=== PATIENT | male | born 1955 | race Caucasian/White ===

== ENCOUNTER → 2017-09-09 | Outpatient (CLI) | END | disposition home or self-care (01) ==

== ENCOUNTER 2017-09-23 01:55 | Emergency (ER) | payer MEDICARE, SELFPAY ==
[~2017-09-23] VITALS: Ht 172.7 cm; Wt 90.7 kg
[~2017-09-23 01:55] MED LIST: ACET325 PO; ALBIPROI; ALBU.083IS IH; ALBU90I; ALBU90OI; ALBU90OI INH; ALBU90OI6 INH; ALBU90OI61 INH; ALBUIS; ALEN70 PO; ALPR.5 PO; AMLO10 PO; ASPI81CH PO; ASPI81EC PO; ATOR10; ATOR40TA PO; AZIT250 PO; AZIT500 PO; Amlodipine Besy10 MG PO; Belladonna-Opi1 EAC1 PR; Bisoprolol Fuma10 MG PO; Brovana15 MCG/2 M; Budesonide0.5 MG/2 M IH; Bystolic20 MG PO; CEPH500 PO; CIPR500 PO; CITA20 PO; CLOP75 PO; CYCL10 PO; Coughtab200 MG PO; DOCU100 PO; DOXA2 PO; DOXA4 PO; Doxazosin Mesyla2 MG PO; EPIN.3I IM; FLUSAL1005; FLUSAL5005; FLUSAL5005 IH; FLUT1DIS5 INH; GUAI600T33 PO; HYDACE5 PO; HYDGUAL120 PO; HYDR1TAB94 PO; IBUHYD PO; IPRAIS NEB; ISODIN10 PO; ISOMON20 PO; Ipratr-Albuterol3 ML IH; Ipratr-Albuterol3 ML NEB; Isosorbide Mono30 MG PO; Isosorbide Mono60 MG PO; LEVFLO500 PO; LORA10ER; LOVA20; METO50ER; MOMENI; MORP30 PO; NEBI10 PO; NEBI5 PO; NITR.4SL SL; NITR.6SL SL; NITR100CA PO; Norco 5-325 Ta1 EACH PO; OMEP20ER PO; OXYACE5T PO; PANT40 PO; PRED10 PO; PRED20 PO; PRED5; PRED5 PO; PROM25 PO; Pantoprazole So40 MG PO; Pepcid20 MG PO; Prednisone20 MG PO; RANI150; RANO500T PO; RXCEPH500 PO; SENN187 PO; SERT50; SIMV10 PO; SIMV5 PO; SUCR1 PO; Simvastatin40 MG PO; TAMS.4ER PO; TIOT18; TIOT18 IH; TIOT18 INH; Ventolin Soln3 ML INH; Ventolin5 MG/1 ML INH; [UNRECOGNIZED DRUG - CODE]
[2017-09-23 03:07] LABS: BASOPHILS ABSOLUTE AUTO 0.15 K/mm3 (0.00-0.23); BASOPHILS PERCENT AUTO 2 % (0-2); EOSINOPHILS ABSOLUTE AUTO 0.23 K/mm3 (0.00-0.68); EOSINOPHILS PERCENT AUTO 3 % (0-6); Hematocrit 36.7 % (37.0-53.0); Hemoglobin 12.5 g/dL (13.5-17.5); IMMATURE GRAN ABSOLUTE AUTO 0.06 K/mm3 (0.00-0.10); IMMATURE GRAN PERCENT AUTO 1 % (0-1); LYMPHOCYTES ABSOLUTE AUTO 1.62 K/mm3 (0.84-5.20); LYMPHOCYTES PERCENT AUTO 18 % (21-46); MONOCYTES ABSOLUTE AUTO 1.32 K/mm3 (0.16-1.47); MONOCYTES PERCENT AUTO 14 % (4-13); Mean Corpuscular HGB 31.3 pg (26.0-34.0); Mean Corpuscular HGB Conc 34.1 g/dL (31.5-36.5); Mean Corpuscular Volume 92 fL (80-100); Mean Platelet Volume 12.3 fL (9.1-12.4); NEUTROPHILS ABSOLUTE AUTO 5.77 K/mm3 (1.96-9.15); NEUTROPHILS PERCENT AUTO 63 % (41-73); Platelet Count 185 K/mm3 (150-400); RDW Coefficient Variation 12.7 % (11.7-14.2); RDW Standard Deviation 42.7 fL (35.1-46.3); Red Blood Cell Count 3.99 M/mm3 (4.30-5.90); White Blood Cell Count 9.15 K/mm3 (4.00-11.30)
[2017-09-23 03:27] LABS: Alanine Aminotransfer (ALT/SGP 33 U/L (12-78); Albumin, Blood 3.5 g/dL (3.4-5.0); Albumin/Globulin Ratio 1.2 (0.8-1.8); Alk Phos 62 U/L (50-136); Anion Gap 9 mmol/L (6-16); Aspartate Aminotrans (AST/SGOT 27 U/L (12-37); Bilirubin, Total 0.4 mg/dL (0.1-1.0); Blood Urea Nitrogen 9 mg/dL (8-24); CO2, Blood 24 mmol/L (21-32); CPK Creatine Kinase 265 U/L (39-308); Calcium, Blood 8.5 mg/dL (8.5-10.1); Chloride, Blood 107 mmol/L (98-108); Glomerular Filtration Rate >60 (60-); Glucose, Blood 85 mg/dL (70-99); Potassium, Blood 3.3 mmol/L (3.5-5.5); Sodium, Blood 140 mmol/L (136-145); Total Protein, Blood 6.5 g/dL (6.4-8.2); Troponin I <0.015 ng/mL (0.000-0.040)
[2017-09-23 03:54] LABS: Influenza A Positive (NEGATIVE); Influenza B Negative (NEGATIVE)
== END 2017-09-23 05:14 | disposition home or self-care (01) ==
LOC: ER 01:55
PROVIDERS: Emergency Medicine
DX: J10.1 Influenza due to other identified influenza virus with other respiratory manifestations (principal); Z88.8 Allergy status to other drugs, medicaments and biological substances; Z88.2 Allergy status to sulfonamides; Z79.899 Other long term (current) drug therapy; J44.9 Chronic obstructive pulmonary disease, unspecified; F17.210 Nicotine dependence, cigarettes, uncomplicated
CPT/HCPCS: 36415; 71045; 80053; 82550; 84484; 85025; 87804; 93005; 93010; 94640; 96361; 96374; 96375; 99284; J1885; J2405; J7030

== ENCOUNTER 2017-10-16 10:47 | Inpatient (IN) | payer MEDICARE ==
[~2017-10-16] VITALS: Ht 180.3 cm; Wt 89.6 kg
[2017-10-16 11:34] LABS: BASOPHILS ABSOLUTE AUTO 0.26 K/mm3 (0.00-0.23); BASOPHILS PERCENT AUTO 1 % (0-2); EOSINOPHILS ABSOLUTE AUTO 1.25 K/mm3 (0.00-0.68); EOSINOPHILS PERCENT AUTO 6 % (0-6); Hematocrit 39.4 % (37.0-53.0); Hemoglobin 13.3 g/dL (13.5-17.5); IMMATURE GRAN ABSOLUTE AUTO 0.15 K/mm3 (0.00-0.10); IMMATURE GRAN PERCENT AUTO 1 % (0-1); LYMPHOCYTES ABSOLUTE AUTO 2.84 K/mm3 (0.84-5.20); LYMPHOCYTES PERCENT AUTO 12 % (21-46); MONOCYTES ABSOLUTE AUTO 2.31 K/mm3 (0.16-1.47); MONOCYTES PERCENT AUTO 10 % (4-13); Mean Corpuscular HGB 31.1 pg (26.0-34.0); Mean Corpuscular HGB Conc 33.8 g/dL (31.5-36.5); Mean Corpuscular Volume 92 fL (80-100); Mean Platelet Volume 12.2 fL (9.1-12.4); NEUTROPHILS ABSOLUTE AUTO 16.05 K/mm3 (1.96-9.15); NEUTROPHILS PERCENT AUTO 70 % (41-73); Platelet Count 285 K/mm3 (150-400); RDW Coefficient Variation 12.3 % (11.7-14.2); RDW Standard Deviation 41.9 fL (35.1-46.3); Red Blood Cell Count 4.27 M/mm3 (4.30-5.90); White Blood Cell Count 22.86 K/mm3 (4.00-11.30)
[2017-10-16 12:10] LABS: Alanine Aminotransfer (ALT/SGP 38 U/L (12-78); Albumin, Blood 3.2 g/dL (3.4-5.0); Albumin/Globulin Ratio 0.9 (0.8-1.8); Alk Phos 156 U/L (50-136); Anion Gap 9 mmol/L (6-16); Aspartate Aminotrans (AST/SGOT 31 U/L (12-37); Bilirubin, Total 0.9 mg/dL (0.1-1.0); Blood Urea Nitrogen 10 mg/dL (8-24); Bun/Creatinine Ratio 11.7 (12.0-20.0); CO2, Blood 26 mmol/L (21-32); Calcium, Blood 8.5 mg/dL (8.5-10.1); Chloride, Blood 102 mmol/L (98-108); Creatinine, Blood 0.86 mg/dL (0.60-1.20); Globulin, Blood 3.7 g/dL (2.2-4.0); Glomerular Filtration Rate >60 (60-); Glucose, Blood 89 mg/dL (70-99); Potassium, Blood 3.5 mmol/L (3.5-5.5); Sodium, Blood 137 mmol/L (136-145); Total Protein, Blood 6.9 g/dL (6.4-8.2)
[2017-10-17 04:19] LABS: BASOPHILS ABSOLUTE AUTO 0.05 K/mm3 (0.00-0.23); BASOPHILS PERCENT AUTO 0 % (0-2); EOSINOPHILS PERCENT AUTO 0 % (0-6); Hematocrit 38.4 % (37.0-53.0); Hemoglobin 12.9 g/dL (13.5-17.5); IMMATURE GRAN PERCENT AUTO 1 % (0-1); LYMPHOCYTES ABSOLUTE AUTO 1.77 K/mm3 (0.84-5.20); LYMPHOCYTES PERCENT AUTO 8 % (21-46); MONOCYTES ABSOLUTE AUTO 0.65 K/mm3 (0.16-1.47); MONOCYTES PERCENT AUTO 3 % (4-13); Mean Corpuscular HGB 31.4 pg (26.0-34.0); Mean Corpuscular HGB Conc 33.6 g/dL (31.5-36.5); Mean Corpuscular Volume 93 fL (80-100); Mean Platelet Volume 12.1 fL (9.1-12.4); NEUTROPHILS ABSOLUTE AUTO 18.98 K/mm3 (1.96-9.15); NEUTROPHILS PERCENT AUTO 88 % (41-73); Platelet Count 250 K/mm3 (150-400); RDW Coefficient Variation 12.3 % (11.7-14.2); RDW Standard Deviation 42.4 fL (35.1-46.3); Red Blood Cell Count 4.11 M/mm3 (4.30-5.90); White Blood Cell Count 21.65 K/mm3 (4.00-11.30)
[2017-10-17 04:38] LABS: Anion Gap 11 mmol/L (6-16); Blood Urea Nitrogen 15 mg/dL (8-24); Bun/Creatinine Ratio 18.2 (12.0-20.0); CO2, Blood 24 mmol/L (21-32); Calcium, Blood 8.7 mg/dL (8.5-10.1); Chloride, Blood 102 mmol/L (98-108); Creatinine, Blood 0.82 mg/dL (0.60-1.20); Glomerular Filtration Rate >60 (60-); Glucose, Blood 118 mg/dL (70-99); Potassium, Blood 3.5 mmol/L (3.5-5.5); Sodium, Blood 137 mmol/L (136-145)
[2017-10-18 04:54] LABS: BASOPHILS ABSOLUTE AUTO 0.06 K/mm3 (0.00-0.23); BASOPHILS PERCENT AUTO 0 % (0-2); EOSINOPHILS PERCENT AUTO 0 % (0-6); Hematocrit 37.7 % (37.0-53.0); Hemoglobin 12.9 g/dL (13.5-17.5); IMMATURE GRAN ABSOLUTE AUTO 0.46 K/mm3 (0.00-0.10); IMMATURE GRAN PERCENT AUTO 2 % (0-1); LYMPHOCYTES ABSOLUTE AUTO 1.46 K/mm3 (0.84-5.20); LYMPHOCYTES PERCENT AUTO 5 % (21-46); MONOCYTES ABSOLUTE AUTO 1.29 K/mm3 (0.16-1.47); MONOCYTES PERCENT AUTO 5 % (4-13); Mean Corpuscular HGB 30.7 pg (26.0-34.0); Mean Corpuscular HGB Conc 34.2 g/dL (31.5-36.5); NEUTROPHILS ABSOLUTE AUTO 23.76 K/mm3 (1.96-9.15); NEUTROPHILS PERCENT AUTO 88 % (41-73); Platelet Count 260 K/mm3 (150-400); RDW Coefficient Variation 12.4 % (11.7-14.2); RDW Standard Deviation 40.4 fL (35.1-46.3); White Blood Cell Count 27.03 K/mm3 (4.00-11.30)
[2017-10-18 05:02] LABS: Mean Corpuscular Volume 90 fL (80-100)
[2017-10-18 05:14] LABS: Anion Gap 9 mmol/L (6-16); Blood Urea Nitrogen 15 mg/dL (8-24); Bun/Creatinine Ratio 18.8 (12.0-20.0); CO2, Blood 24 mmol/L (21-32); Calcium, Blood 8.6 mg/dL (8.5-10.1); Chloride, Blood 107 mmol/L (98-108); Glomerular Filtration Rate >60 (60-); Glucose, Blood 127 mg/dL (70-99); Potassium, Blood 4.2 mmol/L (3.5-5.5); Sodium, Blood 140 mmol/L (136-145)
[2017-10-18] MEDS ORDERED: ASPI81CH PO (09:40)
[2017-10-18] MEDS ORDERED: DULERA 200 MCG/13 GM INH (09:42)
[2017-10-18] MEDS ORDERED: Acidophilus La100 GM PO (09:42)
[2017-10-18] MEDS ORDERED: LEVO750 PO (09:43)
[2017-10-18] MEDS ORDERED: PRED10 PO (09:45)
== END 2017-10-18 09:59 | disposition home or self-care (01) | DRG 871 ==
LOC: ER 10:47 → PCU 12:47
PROVIDERS: Emergency Medicine; Internal Medicine
DX: A41.9 Sepsis, unspecified organism (principal); J18.9 Pneumonia, unspecified organism; J96.21 Acute and chronic respiratory failure with hypoxia; J44.0 Chronic obstructive pulmonary disease with (acute) lower respiratory infection; J44.1 Chronic obstructive pulmonary disease with (acute) exacerbation; C67.9 Malignant neoplasm of bladder, unspecified; I25.10 Atherosclerotic heart disease of native coronary artery without angina pectoris; I10 Essential (primary) hypertension; G89.29 Other chronic pain; E78.5 Hyperlipidemia, unspecified; K21.9 Gastro-esophageal reflux disease without esophagitis; Z66 Do not resuscitate; Z88.1 Allergy status to other antibiotic agents; Z88.2 Allergy status to sulfonamides; Z88.8 Allergy status to other drugs, medicaments and biological substances; Z87.891 Personal history of nicotine dependence; Z79.899 Other long term (current) drug therapy; Z99.81 Dependence on supplemental oxygen
CPT/HCPCS: 36415; 71045; 80048; 80053; 83605; 84145; 85025; 87040; 93005; 93010; 94640; 94644; 94760; 96365; 96375; 99285; C9113; J0456; J0696; J2405; J2920; J2930; J7030; J7050

== ENCOUNTER 2017-11-24 15:05 | Inpatient (IN) | payer MEDICARE ==
[~2017-11-24] VITALS: Ht 177.8 cm; Wt 85.7 kg
[~2017-11-24 15:05] MED LIST changes: +Acidophilus La100 GM PO; +DULERA 200 MCG/13 GM INH; +LEVO750 PO
[2017-11-24 15:22] LABS: Hematocrit 44.2 % (37.0-53.0); Hemoglobin 14.7 g/dL (13.5-17.5); Mean Corpuscular HGB 30.8 pg (26.0-34.0); Mean Corpuscular HGB Conc 33.3 g/dL (31.5-36.5); Mean Corpuscular Volume 93 fL (80-100); Mean Platelet Volume 12.2 fL (9.1-12.4); Platelet Count 246 K/mm3 (150-400); RDW Coefficient Variation 13.2 % (11.7-14.2); RDW Standard Deviation 44.9 fL (35.1-46.3); Red Blood Cell Count 4.78 M/mm3 (4.30-5.90); White Blood Cell Count 19.94 K/mm3 (4.00-11.30)
[2017-11-24 15:27] LABS: Base Excess Venous 0 mmol/L; Bicarbonate Venous 24.5 mmol/L (24.0-30.0); PCO2 Venous 38.8 mmHg (38-42); PO2 Venous 120 mmHg (38-42); pH Blood Venous 7.41 (7.34-7.37)
[2017-11-24 15:42] LABS: Alanine Aminotransfer (ALT/SGP 33 U/L (12-78); Albumin, Blood 3.8 g/dL (3.4-5.0); Albumin/Globulin Ratio 1.2 (0.8-1.8); Alk Phos 62 U/L (50-136); Anion Gap 7 mmol/L (6-16); Aspartate Aminotrans (AST/SGOT 23 U/L (12-37); Bilirubin, Total 0.5 mg/dL (0.1-1.0); Blood Urea Nitrogen 9 mg/dL (8-24); Bun/Creatinine Ratio 9.8 (12.0-20.0); CO2, Blood 25 mmol/L (21-32); Calcium, Blood 9.1 mg/dL (8.5-10.1); Chloride, Blood 110 mmol/L (98-108); Creatinine, Blood 0.92 mg/dL (0.60-1.20); Globulin, Blood 3.3 g/dL (2.2-4.0); Glomerular Filtration Rate >60 (60-); Glucose, Blood 98 mg/dL (70-99); Sodium, Blood 142 mmol/L (136-145); Total Protein, Blood 7.1 g/dL (6.4-8.2)
[2017-11-24 15:50] LABS: BAND PERCENT MAN 1 % (0-8); BASOPHILS ABSOLUTE MAN 0.59 K/mm3 (0.00-0.23); BASOPHILS PERCENT MAN 3 % (0-2); EOSINOPHILS ABSOLUTE MAN 1.59 K/mm3 (0.00-0.68); EOSINOPHILS PERCENT MAN 8 % (0-6); LYMPHOCYTES ABSOLUTE MAN 5.58 K/mm3 (0.84-5.20); LYMPHOCYTES PERCENT MAN 28 % (21-46); MONOCYTES ABSOLUTE MAN 0.39 K/mm3 (0.16-1.47); MONOCYTES PERCENT MAN 2 % (4-13); NEUTROPHILS ABSOLUTE MAN 11.76 K/mm3 (1.96-9.15); SEG NEUTROPHILS PERCENT MAN 58 % (41-73); TOTAL CELLS COUNTED 100
[2017-11-24 22:12] LABS: PCO2 Arterial 33.1 mmHg (35-45); PO2 Arterial 95.2 mmHg (80-100); pH Blood Arterial 7.42 (7.35-7.45)
[2017-11-25 04:08] LABS: BASOPHILS ABSOLUTE AUTO 0.07 K/mm3 (0.00-0.23); BASOPHILS PERCENT AUTO 1 % (0-2); EOSINOPHILS ABSOLUTE AUTO 0.01 K/mm3 (0.00-0.68); EOSINOPHILS PERCENT AUTO 0 % (0-6); Hematocrit 39.3 % (37.0-53.0); IMMATURE GRAN PERCENT AUTO 1 % (0-1); LYMPHOCYTES ABSOLUTE AUTO 1.14 K/mm3 (0.84-5.20); LYMPHOCYTES PERCENT AUTO 8 % (21-46); MONOCYTES ABSOLUTE AUTO 0.23 K/mm3 (0.16-1.47); MONOCYTES PERCENT AUTO 2 % (4-13); Mean Corpuscular HGB 30.2 pg (26.0-34.0); Mean Corpuscular HGB Conc 33.1 g/dL (31.5-36.5); Mean Corpuscular Volume 91 fL (80-100); Mean Platelet Volume 12.6 fL (9.1-12.4); NEUTROPHILS ABSOLUTE AUTO 13.55 K/mm3 (1.96-9.15); NEUTROPHILS PERCENT AUTO 90 % (41-73); Platelet Count 212 K/mm3 (150-400); RDW Coefficient Variation 13.2 % (11.7-14.2); RDW Standard Deviation 44.2 fL (35.1-46.3)
[2017-11-25 04:40] LABS: Anion Gap 10 mmol/L (6-16); Blood Urea Nitrogen 18 mg/dL (8-24); CO2, Blood 21 mmol/L (21-32); Calcium, Blood 8.6 mg/dL (8.5-10.1); Chloride, Blood 109 mmol/L (98-108); Creatinine, Blood 0.95 mg/dL (0.60-1.20); Glomerular Filtration Rate >60 (60-); Glucose, Blood 192 mg/dL (70-99); Potassium, Blood 4.5 mmol/L (3.5-5.5); Sodium, Blood 140 mmol/L (136-145)
[2017-11-25 04:50] LABS: PCO2 Arterial 32.2 mmHg (35-45); PO2 Arterial 78.6 mmHg (80-100); pH Blood Arterial 7.45 (7.35-7.45)
[2017-11-26] MEDS ORDERED: PRED20 PO (11:17)
== END 2017-11-26 12:13 | disposition home or self-care (01) | DRG 189 ==
LOC: ER 15:05 → PCU 16:45
PROVIDERS: Emergency Medicine; Family Medicine
DX: J96.21 Acute and chronic respiratory failure with hypoxia (principal); J44.1 Chronic obstructive pulmonary disease with (acute) exacerbation; I47.1 Supraventricular tachycardia; I25.10 Atherosclerotic heart disease of native coronary artery without angina pectoris; I10 Essential (primary) hypertension; K21.9 Gastro-esophageal reflux disease without esophagitis; G89.29 Other chronic pain; Z88.1 Allergy status to other antibiotic agents; Z88.8 Allergy status to other drugs, medicaments and biological substances; Z85.51 Personal history of malignant neoplasm of bladder; Z87.891 Personal history of nicotine dependence; Z79.82 Long term (current) use of aspirin; Z79.899 Other long term (current) drug therapy
CPT/HCPCS: 36415; 36600; 71045; 80048; 80053; 82803; 85025; 93005; 93010; 94010; 94640; 94644; 94660; 94664; 94667; 94760; 94762; 96365; 96366; 96368; 96375; 98960; 99285; 99407; J0456; J0696; J2060; J2405; J2920; J2930; J3475; J7030; J7050

== ENCOUNTER 2018-07-16 13:08 | Inpatient (IN) | payer MEDICARE, OTHER ==
[~2018-07-16] VITALS: Ht 175.3 cm; Wt 97.0 kg
[2018-07-16 14:20] LABS: BASOPHILS PERCENT AUTO 1 % (0-2); EOSINOPHILS ABSOLUTE AUTO 1.01 K/mm3 (0.00-0.68); EOSINOPHILS PERCENT AUTO 6 % (0-6); Hematocrit 46.5 % (37.0-53.0); Hemoglobin 15.4 g/dL (13.5-17.5); IMMATURE GRAN PERCENT AUTO 1 % (0-1); LYMPHOCYTES PERCENT AUTO 21 % (21-46); MONOCYTES ABSOLUTE AUTO 1.65 K/mm3 (0.16-1.47); MONOCYTES PERCENT AUTO 9 % (4-13); Mean Corpuscular HGB Conc 33.1 g/dL (31.5-36.5); Mean Corpuscular Volume 94 fL (80-100); Mean Platelet Volume 12.8 fL (9.1-12.4); NEUTROPHILS ABSOLUTE AUTO 11.71 K/mm3 (1.96-9.15); NEUTROPHILS PERCENT AUTO 63 % (41-73); Platelet Count 199 K/mm3 (150-400); RDW Coefficient Variation 12.9 % (11.7-14.2); RDW Standard Deviation 44.3 fL (35.1-46.3); Red Blood Cell Count 4.97 M/mm3 (4.30-5.90); White Blood Cell Count 18.47 K/mm3 (4.00-11.30)
[2018-07-16 14:28] LABS: Alanine Aminotransfer (ALT/SGP 36 U/L (12-78); Albumin, Blood 3.9 g/dL (3.4-5.0); Albumin/Globulin Ratio 1.2 (0.8-1.8); Alk Phos 88 U/L (50-136); Anion Gap 8 mmol/L (6-16); Aspartate Aminotrans (AST/SGOT 28 U/L (12-37); Bilirubin, Total 0.6 mg/dL (0.1-1.0); Blood Urea Nitrogen 9 mg/dL (8-24); Bun/Creatinine Ratio 9.6 (12.0-20.0); CO2, Blood 24 mmol/L (21-32); Chloride, Blood 108 mmol/L (98-108); Creatinine, Blood 0.93 mg/dL (0.60-1.20); Globulin, Blood 3.2 g/dL (2.2-4.0); Glomerular Filtration Rate >60 (60-); Glucose, Blood 100 mg/dL (70-99); Potassium, Blood 3.9 mmol/L (3.5-5.5); Sodium, Blood 140 mmol/L (136-145); Total Protein, Blood 7.1 g/dL (6.4-8.2)
[2018-07-16 15:10] LABS: Influenza A Negative (NEGATIVE); Influenza B Negative (NEGATIVE)
--- NOTE | 2018-07-16 19:13 | NUR ---
PT. ARRIVED TO FLOOR AT 1845 REPORT GIVEN TO ONCOMING SHIFT AFTER PT. SETTLED IN BED
[2018-07-16] MEDS ORDERED: ATOR40TA PO (21:28)
[2018-07-16 22:26] LABS: Adenovirus Not Detected (NOT DETECT); Bordetella pertussis Not Detected (NOT DETECT); Chlamydophila pneumoniae Not Detected (NOT DETECT); Coronavirus 229E Not Detected (NOT DETECT); Coronavirus HKU1 Not Detected (NOT DETECT); Coronavirus NL63 Not Detected (NOT DETECT); Coronavirus OC43 Not Detected (NOT DETECT); Human Metapneumovirus Not Detected (NOT DETECT); Influenza A/2009-H1 Not Detected (NOT DETECT); Influenza A/H1 Not Detected (NOT DETECT); Influenza A/H3 Not Detected (NOT DETECT); Influenza B Not Detected (NOT DETECT); Mycoplasma pneumoniae Not Detected (NOT DETECT); Parainfluenza Virus 1 Not Detected (NOT DETECT); Parainfluenza Virus 2 Not Detected (NOT DETECT); Parainfluenza Virus 3 Not Detected (NOT DETECT); Parainfluenza Virus 4 Not Detected (NOT DETECT); Respiratory Syncytial Virus Not Detected (NOT DETECT)
[2018-07-16 23:39] LABS: Hematocrit 44.1 % (37.0-53.0); Hemoglobin 14.6 g/dL (13.5-17.5)
[2018-07-16 23:49] LABS: Human Rhinovirus/Enterovirus Detected (NOT DETECT); Influenza A Not Detected (NOT DETECT)
--- NOTE | 2018-07-17 05:12 | NUR ---
*SHIFT SUMMARY* PATIENT ALERT AND ORIENTED TO TIME, PLACE, AND SELF. PATIENT WAS VERY TIRED THROUGHOUT SHIFT, BUT AROUSABLE. PATIENT ANSWERED QUESTIONS APPROPRIATELY. PATIENT IS CONTINENT. CALL LIGHT WITHIN REACH, BED LOWERED AND LOCKED. PATIENT WEARS OXYGEN AT BEDTIME.
[2018-07-17 05:27] LABS: BASOPHILS ABSOLUTE AUTO 0.08 K/mm3 (0.00-0.23); BASOPHILS PERCENT AUTO 1 % (0-2); EOSINOPHILS ABSOLUTE AUTO 0.02 K/mm3 (0.00-0.68); EOSINOPHILS PERCENT AUTO 0 % (0-6); Hematocrit 43.5 % (37.0-53.0); Hemoglobin 14.1 g/dL (13.5-17.5); IMMATURE GRAN ABSOLUTE AUTO 0.05 K/mm3 (0.00-0.10); IMMATURE GRAN PERCENT AUTO 0 % (0-1); LYMPHOCYTES PERCENT AUTO 11 % (21-46); MONOCYTES ABSOLUTE AUTO 0.12 K/mm3 (0.16-1.47); MONOCYTES PERCENT AUTO 1 % (4-13); Mean Corpuscular HGB 30.5 pg (26.0-34.0); Mean Corpuscular HGB Conc 32.4 g/dL (31.5-36.5); Mean Corpuscular Volume 94 fL (80-100); NEUTROPHILS ABSOLUTE AUTO 9.87 K/mm3 (1.96-9.15); NEUTROPHILS PERCENT AUTO 87 % (41-73); Platelet Count 175 K/mm3 (150-400); RDW Coefficient Variation 12.9 % (11.7-14.2); Red Blood Cell Count 4.63 M/mm3 (4.30-5.90); White Blood Cell Count 11.34 K/mm3 (4.00-11.30)
[2018-07-17 06:09] LABS: Anion Gap 9 mmol/L (6-16); Blood Urea Nitrogen 9 mg/dL (8-24); Bun/Creatinine Ratio 10.1 (12.0-20.0); CO2, Blood 23 mmol/L (21-32); Calcium, Blood 8.4 mg/dL (8.5-10.1); Chloride, Blood 109 mmol/L (98-108); Creatinine, Blood 0.89 mg/dL (0.60-1.20); Glomerular Filtration Rate >60 (60-); Glucose, Blood 138 mg/dL (70-99); Potassium, Blood 4.1 mmol/L (3.5-5.5); Sodium, Blood 141 mmol/L (136-145)
--- NOTE | 2018-07-17 19:00 | NUR ---
PT. VISITING WITH SON AT THIS TIME, HAS SLEPT MOST OF THE DAY, STARTED ON CL AND TOLERATING WELL. NO BOWEL MOVEMENT OR EMESIS T/O THIS SHIFT.
[2018-07-17 23:06] LABS: Adenovirus F 40/41 Not Detected (NOT DETECT); Astrovirus Not Detected (NOT DETECT); Campylobacter Sp Not Detected (NOT DETECT); Cryptosporidium Not Detected (NOT DETECT); Cyclospora Cayetanensis Not Detected (NOT DETECT); E. Coli O157 Not Detected (NOT DETECT); Entamoeba Histolytica Not Detected (NOT DETECT); Enteroaggregative E. coli-EAEC Not Detected (NOT DETECT); Enteropathogenic E. coli-EPEC Not Detected (NOT DETECT); Enterotoxigenic E. coli-ETEC Not Detected (NOT DETECT); Giardia Lamblia Not Detected (NOT DETECT); Norovirus GI/GII Not Detected (NOT DETECT); Plesiomonas Shigelloides Not Detected (NOT DETECT); Rotavirus A Not Detected (NOT DETECT); Salmonella Sp Not Detected (NOT DETECT); Sapovirus Not Detected (NOT DETECT); Shiga Toxin-prod E. coli-STEC Not Detected (NOT DETECT); Shigella/Enteroin E. coli-EIEC Not Detected (NOT DETECT); Vibrio Cholerae Not Detected (NOT DETECT); Vibrio Sp Not Detected (NOT DETECT); Yersinia Enterocolitica Not Detected (NOT DETECT)
[2018-07-18 05:01] LABS: BASOPHILS ABSOLUTE AUTO 0.03 K/mm3 (0.00-0.23); BASOPHILS PERCENT AUTO 0 % (0-2); EOSINOPHILS PERCENT AUTO 0 % (0-6); Hematocrit 38.7 % (37.0-53.0); Hemoglobin 12.7 g/dL (13.5-17.5); IMMATURE GRAN ABSOLUTE AUTO 0.16 K/mm3 (0.00-0.10); IMMATURE GRAN PERCENT AUTO 1 % (0-1); LYMPHOCYTES ABSOLUTE AUTO 1.15 K/mm3 (0.84-5.20); LYMPHOCYTES PERCENT AUTO 6 % (21-46); MONOCYTES ABSOLUTE AUTO 0.67 K/mm3 (0.16-1.47); MONOCYTES PERCENT AUTO 3 % (4-13); Mean Corpuscular HGB 31.1 pg (26.0-34.0); Mean Corpuscular HGB Conc 32.8 g/dL (31.5-36.5); Mean Corpuscular Volume 95 fL (80-100); Mean Platelet Volume 12.9 fL (9.1-12.4); NEUTROPHILS ABSOLUTE AUTO 18.01 K/mm3 (1.96-9.15); NEUTROPHILS PERCENT AUTO 90 % (41-73); Platelet Count 174 K/mm3 (150-400); RDW Coefficient Variation 12.8 % (11.7-14.2); RDW Standard Deviation 44.7 fL (35.1-46.3); Red Blood Cell Count 4.08 M/mm3 (4.30-5.90); White Blood Cell Count 20.02 K/mm3 (4.00-11.30)
--- NOTE | 2018-07-18 05:05 | NUR ---
*SHIFT SUMMARY* PATIENT IS ALERT AND ORIENTED, PATIENT SLEPT MOST OF THE SHIFT. PATIENT DID AWAKE THIS EVENING WITH SEVERE ABDOMINAL CRAMPS. PATIENT HAD TWO BOWEL MOVEMENTS DURING THIS TIME. PATIENT WAS TEARFUL AND HAD TO GET ON ALL FOURS DURING THE ABDOMINAL SPASMS TO GET SOME RELIEF. PATIENT STATED THEY WERE A 10/10. SENT STOOL SPECIMEN TO LAB FOR GI PANEL. MEDICATED PATIENT FOR PAIN ORDERED- THIS WAS AN ED ORDER, SEE EMAR. CALLED HOSPITALIST TO INFORM HIM OF THE SITUATION AND RECIEVED A ONE TIME ORDER FOR PAIN MEDICATION, SEE EMAR. PATIENT STATED HE HAD ALMOST INSTANT RELIEF FROM PAIN MEDICATION, PAIN LEVEL WAS BROUGHT DOWN TO A 4/10. PATIENTS IV WAS PULLED OUT WHILE PATIENT WAS RUSHING TO THE BATHROOM. NEW IV WAS STARTED BEFORE MEDICATING WITH PAIN MEDICINE. CALL LIGHT WITHIN REACH, BED LOWERED AND LOCKED.
[2018-07-18 05:41] LABS: Anion Gap 8 mmol/L (6-16); Blood Urea Nitrogen 15 mg/dL (8-24); Bun/Creatinine Ratio 16.3 (12.0-20.0); CO2, Blood 23 mmol/L (21-32); Calcium, Blood 8.6 mg/dL (8.5-10.1); Chloride, Blood 110 mmol/L (98-108); Creatinine, Blood 0.92 mg/dL (0.60-1.20); Glomerular Filtration Rate >60 (60-); Glucose, Blood 132 mg/dL (70-99); Phosphorus, Blood 2.5 mg/dL (2.5-4.9); Potassium, Blood 3.9 mmol/L (3.5-5.5); Sodium, Blood 141 mmol/L (136-145)
--- NOTE | 2018-07-18 19:41 | NUR ---
PT. SLEEPING. NO CHANGE TODAY. PT. UNABLE TO GIVE A SPUTUM SAMPLE. PT. WENT OUTSIDE TODAY AT ABOUT 1320. NO NOTEABLE CHANGES TODAY.
[2018-07-19 04:50] LABS: BASOPHILS ABSOLUTE AUTO 0.02 K/mm3 (0.00-0.23); BASOPHILS PERCENT AUTO 0 % (0-2); EOSINOPHILS PERCENT AUTO 0 % (0-6); Hematocrit 38.5 % (37.0-53.0); Hemoglobin 12.6 g/dL (13.5-17.5); IMMATURE GRAN ABSOLUTE AUTO 0.19 K/mm3 (0.00-0.10); IMMATURE GRAN PERCENT AUTO 1 % (0-1); LYMPHOCYTES ABSOLUTE AUTO 0.81 K/mm3 (0.84-5.20); LYMPHOCYTES PERCENT AUTO 4 % (21-46); MONOCYTES ABSOLUTE AUTO 0.51 K/mm3 (0.16-1.47); MONOCYTES PERCENT AUTO 3 % (4-13); Mean Corpuscular HGB 31.3 pg (26.0-34.0); Mean Corpuscular HGB Conc 32.7 g/dL (31.5-36.5); Mean Corpuscular Volume 96 fL (80-100); Mean Platelet Volume 12.5 fL (9.1-12.4); NEUTROPHILS PERCENT AUTO 92 % (41-73); Platelet Count 180 K/mm3 (150-400); RDW Standard Deviation 46.6 fL (35.1-46.3); Red Blood Cell Count 4.02 M/mm3 (4.30-5.90); White Blood Cell Count 19.33 K/mm3 (4.00-11.30)
[2018-07-19 05:11] LABS: Anion Gap 10 mmol/L (6-16); Blood Urea Nitrogen 18 mg/dL (8-24); CO2, Blood 21 mmol/L (21-32); Calcium, Blood 8.8 mg/dL (8.5-10.1); Chloride, Blood 111 mmol/L (98-108); Creatinine, Blood 0.95 mg/dL (0.60-1.20); Glomerular Filtration Rate >60 (60-); Glucose, Blood 165 mg/dL (70-99); Potassium, Blood 3.8 mmol/L (3.5-5.5); Sodium, Blood 142 mmol/L (136-145)
--- NOTE | 2018-07-19 06:21 | NUR ---
*SHIFT SUMMARY* PATIENT ALERT AND ORIENTED. NO COMPLAINTS OF ABDOMINAL PAIN. PATIENT STATES HE IS HAVING ACID REFLUX AND WOULD LIKE AN ORDER FOR SOMETHING. CALLED HOSPITALIST AND RECIEVED AND ORDER FOR TUMS PRN. PATIENT BECAME VERY ANXIOUS, PT GOT DRESSED AND PACKED BELONGINGS AND STATED HE WAS GOING TO LEAVE AMA. I INFORMED THE PATIENT THAT I HAD THE ORDER FOR TUMS AND THAT HE HAD ANTIBIOTICS THAT NEEDED TO BE GIVEN FOR HIS PNEUMONIA. PATIENT VERBALIZED UNDERSTANDING, PATIENT STATES THAT THE STEROIDS INCREASE HIS AGITATION AND HE " CAN'T CONTROL HIS EMOTIONS". THIS RN SAT AND SPOKE WITH PATIENT FOR ABOUT AN HOUR. I ASKED PATIENT IF I COULD GET A MEDICATION TO HELP DECREASE HIS ANXIETY WOULD HE STAY. PATIENT STATED HE WOULD TRY. THIS RN CALLED THE HOSPITALIST AND RECIEVED AN ORDER FOR ATIVAN OT. WHEN GOING TO ADMINISTER THE ATIVAN PATIENT'S IV WAS INFILTRATED, DISCONTINUED THE IV AND RESTARTED ANOTHER IV. ADMINISTERED MEDICATION ORDERED. PATIENT STATED THIS HELPED DECREASE SOME OF HIS ANXIETY LEVEL. ABOUT TWENTY MINUTES LATER PATIENT BECAME VERY ANXIOUS AGAIN STATING HE WANTED TO LEAVE. THIS RN SPOKE WITH THE CHARGE NURSE AND ASKED IF ALVIN CHILDRESS RN COULD COME SPEAK WITH PATIENT. ALVIN KRUEGER SAT AND TALKED WITH PATIENT FOR OVER TWO HOURS. PATIENT DEESCALATED AND WAS VERY THANKFUL WE TOOK THE TIME TO LISTEN TO HIM. PATIENT STATES THE ATIVAN REALLY HELPED WITH HIS ANXIETY. PATIENT HAS REMAINED CALM AND IN HIS ROOM SINCE. CALL LIGHT WITHIN REACH, BED LOWERED AND LOCKED.
[2018-07-19] MEDS ORDERED: ALBU3IS INH (11:34)
[2018-07-19] MEDS ORDERED: NITR.4SL SL (11:35)
[2018-07-19] MEDS ORDERED: PRED20 (11:37)
[2018-07-19] MEDS ORDERED: Calcium Carbon500 M1 PO (11:38)
[2018-07-19] MEDS ORDERED: BUDE10.22 INH (11:39)
[2018-07-19] MEDS ORDERED: Acidophilus1 EAC2 PO (11:39)
[2018-07-19] MEDS ORDERED: GUAI600T33 PO (11:39)
[2018-07-19] MEDS ORDERED: METR500 PO (11:40)
[2018-07-19] MEDS ORDERED: LEVO750 PO (11:40)
[2018-07-19] MEDS ORDERED: HYDR1TAB94 PO (11:40)
[2018-07-19] MEDS ORDERED: ONDA4ODT MM (11:41)
--- NOTE | 2018-07-19 13:22 | NUR ---
DISCHARGE PT DISCHARGED TO HOME. THIS RN EXPLAINED DISCHARGE INSTRUCTIONS AND MEDICATIONS TO PT AND HE REPORTS HE UNDERSTANDS. MEDICATIONS FAXED TO [facility] [place]. IV REMOVED WITHOUT DIFFICULTY. PT TRANSFERRED TO PRIVATE VEHICLE VIA WHEELCHAIR BY [employer].
--- NOTE | 2018-07-19 17:02 | NUR ---
LUNCH TOLERANCE PT ATE HALF HIS LUNCH AND REPORTED HAVING NO PAIN OR NAUSEA. PT DISCHARGED PER DR. SEARS.
== END 2018-07-19 13:13 | disposition home or self-care (01) | DRG 190 ==
LOC: ER 13:08 → MEDS 13:09
PROVIDERS: Emergency Medicine; ADMIT Internal Medicine
DX: J44.1 Chronic obstructive pulmonary disease with (acute) exacerbation (principal); J12.89 Other viral pneumonia; A09 Infectious gastroenteritis and colitis, unspecified; J44.0 Chronic obstructive pulmonary disease with (acute) lower respiratory infection; I25.10 Atherosclerotic heart disease of native coronary artery without angina pectoris; I10 Essential (primary) hypertension; E78.5 Hyperlipidemia, unspecified; K21.9 Gastro-esophageal reflux disease without esophagitis; E66.9 Obesity, unspecified; Z85.51 Personal history of malignant neoplasm of bladder; Z99.81 Dependence on supplemental oxygen; Z79.51 Long term (current) use of inhaled steroids; F17.210 Nicotine dependence, cigarettes, uncomplicated
CPT/HCPCS: 36415; 71045; 74177; 80048; 80053; 80069; 83690; 85014; 85018; 85025; 85651; 86140; 87486; 87507; 87581; 87633; 87798; 87804; 93005; 93010; 94640; 94760; 96361; 96365; 96367; 96375; 99285-25; J0456; J0696; J1170; J2060; J2405; J2550; J2920; J7030; J7050; Q9967

== ENCOUNTER 2018-12-04 09:31 | Emergency (ER) | payer MEDICARE, OTHER ==
[~2018-12-04] VITALS: Ht 175.3 cm; Wt 99.8 kg
[~2018-12-04 09:31] MED LIST changes: +ALBU3IS INH; +Acidophilus1 EAC2 PO; +BUDE10.22 INH; +Calcium Carbon500 M1 PO; +METR500 PO; +ONDA4ODT MM; +PRED20
[2018-12-04 10:15] LABS: BASOPHILS ABSOLUTE AUTO 0.18 K/mm3 (0.00-0.23); BASOPHILS PERCENT AUTO 1 % (0-2); EOSINOPHILS ABSOLUTE AUTO 0.93 K/mm3 (0.00-0.68); EOSINOPHILS PERCENT AUTO 6 % (0-6); Hematocrit 43.5 % (37.0-53.0); Hemoglobin 14.4 g/dL (13.5-17.5); IMMATURE GRAN ABSOLUTE AUTO 0.07 K/mm3 (0.00-0.10); IMMATURE GRAN PERCENT AUTO 0 % (0-1); LYMPHOCYTES ABSOLUTE AUTO 3.23 K/mm3 (0.84-5.20); LYMPHOCYTES PERCENT AUTO 20 % (21-46); MONOCYTES ABSOLUTE AUTO 1.12 K/mm3 (0.16-1.47); MONOCYTES PERCENT AUTO 7 % (4-13); Mean Corpuscular HGB 30.6 pg (26.0-34.0); Mean Corpuscular HGB Conc 33.1 g/dL (31.5-36.5); Mean Corpuscular Volume 93 fL (80-100); Mean Platelet Volume 12.4 fL (9.1-12.4); NEUTROPHILS ABSOLUTE AUTO 10.82 K/mm3 (1.96-9.15); NEUTROPHILS PERCENT AUTO 66 % (41-73); Platelet Count 260 K/mm3 (150-400); RDW Coefficient Variation 13.2 % (11.7-14.2); RDW Standard Deviation 44.8 fL (35.1-46.3); White Blood Cell Count 16.35 K/mm3 (4.00-11.30)
[2018-12-04 10:29] LABS: Alanine Aminotransfer (ALT/SGP 38 U/L (12-78); Albumin, Blood 3.7 g/dL (3.4-5.0); Albumin/Globulin Ratio 1.2 (0.8-1.8); Alk Phos 80 U/L (50-136); Anion Gap 10 mmol/L (6-16); Aspartate Aminotrans (AST/SGOT 27 U/L (12-37); Bilirubin, Total 0.6 mg/dL (0.1-1.0); Blood Urea Nitrogen 8 mg/dL (8-24); Bun/Creatinine Ratio 9.9 (12.0-20.0); CO2, Blood 23 mmol/L (21-32); Calcium, Blood 8.7 mg/dL (8.5-10.1); Chloride, Blood 108 mmol/L (98-108); Creatinine, Blood 0.81 mg/dL (0.60-1.20); Globulin, Blood 3.2 g/dL (2.2-4.0); Glomerular Filtration Rate >60 (60-); Glucose, Blood 99 mg/dL (70-99); Potassium, Blood 3.4 mmol/L (3.5-5.5); Sodium, Blood 141 mmol/L (136-145); Total Protein, Blood 6.9 g/dL (6.4-8.2)
== END 2018-12-04 12:04 | disposition home or self-care (01) ==
LOC: ER 09:31
PROVIDERS: Emergency Medicine
DX: J44.1 Chronic obstructive pulmonary disease with (acute) exacerbation (principal); J98.11 Atelectasis; Z88.1 Allergy status to other antibiotic agents; Z88.2 Allergy status to sulfonamides; Z88.8 Allergy status to other drugs, medicaments and biological substances; Z79.899 Other long term (current) drug therapy; Z79.82 Long term (current) use of aspirin; Z79.52 Long term (current) use of systemic steroids; J44.9 Chronic obstructive pulmonary disease, unspecified; F17.210 Nicotine dependence, cigarettes, uncomplicated
CPT/HCPCS: 71045; 80053; 85025; 93005; 93010; 96374; 96375; 99284-25; J2405; J2930

== ENCOUNTER → 2019-05-02 | Outpatient (CLI) | payer MEDICARE ==
[2019-05-02 12:32] LABS: BASOPHILS ABSOLUTE AUTO 0.06 K/mm3 (0.00-0.23); BASOPHILS PERCENT AUTO 1 % (0-2); EOSINOPHILS ABSOLUTE AUTO 0.42 K/mm3 (0.00-0.68); EOSINOPHILS PERCENT AUTO 4 % (0-6); Hematocrit 43.1 % (37.0-53.0); Hemoglobin 14.5 g/dL (13.5-17.5); IMMATURE GRAN ABSOLUTE AUTO 0.05 K/mm3 (0.00-0.10); IMMATURE GRAN PERCENT AUTO 1 % (0-1); LYMPHOCYTES ABSOLUTE AUTO 0.61 K/mm3 (0.84-5.20); LYMPHOCYTES PERCENT AUTO 6 % (21-46); MONOCYTES ABSOLUTE AUTO 0.92 K/mm3 (0.16-1.47); MONOCYTES PERCENT AUTO 10 % (4-13); Mean Corpuscular HGB 30.9 pg (26.0-34.0); Mean Corpuscular HGB Conc 33.6 g/dL (31.5-36.5); Mean Corpuscular Volume 92 fL (80-100); Mean Platelet Volume 12.7 fL (9.1-12.4); NEUTROPHILS ABSOLUTE AUTO 7.45 K/mm3 (1.96-9.15); NEUTROPHILS PERCENT AUTO 78 % (41-73); Platelet Count 216 K/mm3 (150-400); RDW Coefficient Variation 13.3 % (11.7-14.2); RDW Standard Deviation 45.4 fL (35.1-46.3); White Blood Cell Count 9.51 K/mm3 (4.00-11.30)
[2019-05-02 12:47] LABS: Alanine Aminotransfer (ALT/SGP 32 U/L (12-78); Albumin, Blood 3.3 g/dL (3.4-5.0); Alk Phos 95 U/L (40-126); Anion Gap 10 mmol/L (6-16); Aspartate Aminotrans (AST/SGOT 36 U/L (12-37); Bilirubin, Total 0.7 mg/dL (0.1-1.0); Blood Urea Nitrogen 13 mg/dL (8-24); CO2, Blood 25 mmol/L (21-32); Calcium, Blood 8.6 mg/dL (8.5-10.1); Chloride, Blood 104 mmol/L (98-108); Creatinine, Blood 1.18 mg/dL (0.60-1.20); Globulin, Blood 3.2 g/dL (2.2-4.0); Glomerular Filtration Rate >60 (60-); Glucose, Blood 106 mg/dL (70-99); Potassium, Blood 3.2 mmol/L (3.5-5.5); Sodium, Blood 139 mmol/L (136-145); Total Protein, Blood 6.5 g/dL (6.4-8.2)
== END ==
LOC: LAB EV 12:26 → LAB SHORT 12:26
PROVIDERS: Emergency Medicine
DX: R50.9 Fever, unspecified (principal)
CPT/HCPCS: 80053; 85025; 87040

== ENCOUNTER 2020-05-09 07:57 | Emergency (ER) | payer OTHER ==
[~2020-05-09] VITALS: Ht 175.3 cm; Wt 95.2 kg
[~2020-05-09 07:57] MED LIST changes: +AIRDUO RESPICL1 EAC4 INH; +CEFP200 PO; +Nicoderm Cq1 EAC1 TOP; +Prednisone10 MG PO; +Q-Tussin100 MG/5 M PO; +Ventolin/Prove6.7 GM INH
[2020-05-09] MEDS ORDERED: Aspirin EC81 MG PO (08:15)
[2020-05-09] MEDS ORDERED: DOXA2 PO (08:15)
[2020-05-09] MEDS ORDERED: TIOT18 INH (08:16)
[2020-05-09] MEDS ORDERED: ALEN70 PO (08:16)
[2020-05-09] MEDS ORDERED: NEBI5 PO (08:16)
[2020-05-09] MEDS ORDERED: NASONEX17 G1 (08:17)
[2020-05-09] MEDS ORDERED: FLUT1DIS2 INH (08:17)
[2020-05-09 08:29] LABS: BASOPHILS ABSOLUTE AUTO 0.28 K/mm3 (0.00-0.23); BASOPHILS PERCENT AUTO 2 % (0-2); EOSINOPHILS ABSOLUTE AUTO 1.16 K/mm3 (0.00-0.68); EOSINOPHILS PERCENT AUTO 9 % (0-6); Hematocrit 42.1 % (37.0-53.0); Hemoglobin 13.8 g/dL (13.5-17.5); IMMATURE GRAN ABSOLUTE AUTO 0.09 K/mm3 (0.00-0.10); IMMATURE GRAN PERCENT AUTO 1 % (0-1); LYMPHOCYTES ABSOLUTE AUTO 2.47 K/mm3 (0.84-5.20); LYMPHOCYTES PERCENT AUTO 19 % (21-46); MONOCYTES ABSOLUTE AUTO 0.98 K/mm3 (0.16-1.47); MONOCYTES PERCENT AUTO 7 % (4-13); Mean Corpuscular HGB 30.9 pg (26.0-34.0); Mean Corpuscular HGB Conc 32.8 g/dL (31.5-36.5); Mean Corpuscular Volume 94 fL (80-100); NEUTROPHILS ABSOLUTE AUTO 8.22 K/mm3 (1.96-9.15); NEUTROPHILS PERCENT AUTO 62 % (41-73); Platelet Count 220 K/mm3 (150-400); RDW Coefficient Variation 13.2 % (11.7-14.2); RDW Standard Deviation 45.4 fL (35.1-46.3); Red Blood Cell Count 4.47 M/mm3 (4.30-5.90)
[2020-05-09 08:31] LABS: Mean Platelet Volume 13.2 fL (9.1-12.4)
[2020-05-09 08:46] LABS: Alanine Aminotransfer (ALT/SGP 31 U/L (12-78); Albumin, Blood 3.5 g/dL (3.4-5.0); Albumin/Globulin Ratio 1.2 (0.8-1.8); Alk Phos 63 U/L (50-136); Anion Gap 6 mmol/L (6-16); Aspartate Aminotrans (AST/SGOT 24 U/L (12-37); Bilirubin, Total 0.7 mg/dL (0.1-1.0); Blood Urea Nitrogen 11 mg/dL (8-24); Bun/Creatinine Ratio 12.1 (12.0-20.0); CO2, Blood 25 mmol/L (21-32); Calcium, Blood 8.8 mg/dL (8.5-10.1); Chloride, Blood 111 mmol/L (98-108); Creatinine, Blood 0.91 mg/dL (0.60-1.20); Globulin, Blood 2.8 g/dL (2.2-4.0); Glomerular Filtration Rate >60 (60-); Glucose, Blood 118 mg/dL (70-99); Potassium, Blood 3.8 mmol/L (3.5-5.5); Sodium, Blood 142 mmol/L (136-145); Total Protein, Blood 6.3 g/dL (6.4-8.2)
[2020-05-09] MEDS ORDERED: PRED20 PO (11:05)
== END 2020-05-09 11:22 | disposition home or self-care (01) ==
LOC: ER 07:57
PROVIDERS: Emergency Medicine
DX: J44.1 Chronic obstructive pulmonary disease with (acute) exacerbation (principal); J45.909 Unspecified asthma, uncomplicated; E78.5 Hyperlipidemia, unspecified; I10 Essential (primary) hypertension; K21.9 Gastro-esophageal reflux disease without esophagitis; F17.210 Nicotine dependence, cigarettes, uncomplicated; Z88.1 Allergy status to other antibiotic agents; Z88.2 Allergy status to sulfonamides; Z88.8 Allergy status to other drugs, medicaments and biological substances; Z79.82 Long term (current) use of aspirin; Z79.899 Other long term (current) drug therapy; Z79.52 Long term (current) use of systemic steroids
CPT/HCPCS: 71045; 80053; 85025; 93005; 93010; 94644; 99285-25

== ENCOUNTER 2020-06-16 12:33 | Emergency (ER) | payer OTHER ==
[~2020-06-16] VITALS: Ht 177.8 cm; Wt 94.3 kg
[~2020-06-16 12:33] MED LIST changes: +Aspirin EC81 MG PO; +Calcium Carbon500 MG PO; +FLUT.05NI; +FLUT1DIS2 INH; +NASONEX17 G1; +Vitamin D2000 UNIT PO
[2020-06-16 12:51] LABS: BASOPHILS ABSOLUTE AUTO 0.24 K/mm3 (0.00-0.23); BASOPHILS PERCENT AUTO 2 % (0-2); EOSINOPHILS ABSOLUTE AUTO 0.94 K/mm3 (0.00-0.68); EOSINOPHILS PERCENT AUTO 8 % (0-6); Hematocrit 46.7 % (37.0-53.0); Hemoglobin 15.6 g/dL (13.5-17.5); IMMATURE GRAN ABSOLUTE AUTO 0.07 K/mm3 (0.00-0.10); IMMATURE GRAN PERCENT AUTO 1 % (0-1); LYMPHOCYTES ABSOLUTE AUTO 4.12 K/mm3 (0.84-5.20); LYMPHOCYTES PERCENT AUTO 34 % (21-46); MONOCYTES ABSOLUTE AUTO 1.18 K/mm3 (0.16-1.47); MONOCYTES PERCENT AUTO 10 % (4-13); Mean Corpuscular HGB 31.4 pg (26.0-34.0); Mean Corpuscular HGB Conc 33.4 g/dL (31.5-36.5); Mean Corpuscular Volume 94 fL (80-100); NEUTROPHILS ABSOLUTE AUTO 5.55 K/mm3 (1.96-9.15); NEUTROPHILS PERCENT AUTO 46 % (41-73); Platelet Count 233 K/mm3 (150-400); RDW Coefficient Variation 13.2 % (11.7-14.2); Red Blood Cell Count 4.97 M/mm3 (4.30-5.90)
[2020-06-16 13:13] LABS: Alanine Aminotransfer (ALT/SGP 34 U/L (12-78); Albumin, Blood 3.8 g/dL (3.4-5.0); Albumin/Globulin Ratio 1.2 (0.8-1.8); Alk Phos 59 U/L (50-136); Anion Gap 6 mmol/L (6-16); Aspartate Aminotrans (AST/SGOT 23 U/L (12-37); Bilirubin, Total 0.6 mg/dL (0.1-1.0); Blood Urea Nitrogen 8 mg/dL (8-24); Bun/Creatinine Ratio 9.5 (12.0-20.0); CO2, Blood 26 mmol/L (21-32); Calcium, Blood 9.3 mg/dL (8.5-10.1); Chloride, Blood 110 mmol/L (98-108); Creatinine, Blood 0.84 mg/dL (0.60-1.20); Globulin, Blood 3.2 g/dL (2.2-4.0); Glomerular Filtration Rate >60 (60-); Glucose, Blood 90 mg/dL (70-99); Potassium, Blood 3.8 mmol/L (3.5-5.5); Sodium, Blood 142 mmol/L (136-145); Troponin I <0.015 ng/mL (0.000-0.040)
[2020-06-16 14:10] LABS: Influenza A, PCR Negative (NEGATIVE); Influenza B, PCR Negative (NEGATIVE); Resp Syncytial Virus, PCR Negative (NEGATIVE); SARS-Cov-2 (COVID-19) PCR, MMC Negative (NEGATIVE)
== END 2020-06-16 15:19 | disposition home or self-care (01) ==
LOC: ER 12:33
PROVIDERS: Emergency Medicine
DX: J44.1 Chronic obstructive pulmonary disease with (acute) exacerbation (principal); I10 Essential (primary) hypertension; E78.5 Hyperlipidemia, unspecified; I25.10 Atherosclerotic heart disease of native coronary artery without angina pectoris; F17.210 Nicotine dependence, cigarettes, uncomplicated; Z20.828 Contact with and (suspected) exposure to other viral communicable diseases; Z88.1 Allergy status to other antibiotic agents; Z88.2 Allergy status to sulfonamides; Z88.8 Allergy status to other drugs, medicaments and biological substances; Z79.899 Other long term (current) drug therapy; Z79.82 Long term (current) use of aspirin; Z79.52 Long term (current) use of systemic steroids
CPT/HCPCS: 0241U; 71045; 80053; 84484; 85025; 93005; 93010; 94644; 96374; 99284-25; J2930

== ENCOUNTER 2021-04-30 01:26 | Inpatient (IN) | payer OTHER ==
[~2021-04-30] VITALS: Ht 172.7 cm; Wt 102.0 kg
[2021-04-30 01:59] LABS: Hematocrit 40.8 % (37.0-53.0); Hemoglobin 13.6 g/dL (13.5-17.5); Mean Corpuscular HGB Conc 33.3 g/dL (31.5-36.5); Mean Corpuscular Volume 90 fL (80-100); Mean Platelet Volume 12.8 fL (9.1-12.4); Platelet Count 187 K/mm3 (150-400); RDW Coefficient Variation 13.2 % (11.7-14.2); RDW Standard Deviation 43.8 fL (35.1-46.3); Red Blood Cell Count 4.54 M/mm3 (4.30-5.90)
[2021-04-30 03:37] LABS: Alanine Aminotransfer (ALT/SGP 37 U/L (12-78); Albumin, Blood 3.2 g/dL (3.4-5.0); Alk Phos 70 U/L (50-136); Anion Gap 6 mmol/L (6-16); Aspartate Aminotrans (AST/SGOT 33 U/L (12-37); Bilirubin, Total 0.4 mg/dL (0.1-1.0); Blood Urea Nitrogen 10 mg/dL (8-24); Bun/Creatinine Ratio 9.2 (12.0-20.0); CO2, Blood 25 mmol/L (21-32); Calcium, Blood 8.7 mg/dL (8.5-10.1); Chloride, Blood 107 mmol/L (98-108); Creatinine, Blood 1.09 mg/dL (0.60-1.20); Globulin, Blood 3.2 g/dL (2.2-4.0); Glomerular Filtration Rate >60 (60-); Glucose, Blood 94 mg/dL (70-99); Potassium, Blood 3.3 mmol/L (3.5-5.5); Sodium, Blood 138 mmol/L (136-145); Total Protein, Blood 6.4 g/dL (6.4-8.2); Troponin I <0.015 ng/mL (0.000-0.040)
[2021-04-30 03:47] LABS: BASOPHILS ABSOLUTE AUTO 0.17 K/mm3 (0.00-0.23); BASOPHILS PERCENT AUTO 1 % (0-2); EOSINOPHILS PERCENT AUTO 3 % (0-6); IMMATURE GRAN ABSOLUTE AUTO 0.08 K/mm3 (0.00-0.10); IMMATURE GRAN PERCENT AUTO 1 % (0-1); LYMPHOCYTES ABSOLUTE AUTO 2.71 K/mm3 (0.84-5.20); LYMPHOCYTES PERCENT AUTO 22 % (21-46); MONOCYTES ABSOLUTE AUTO 1.88 K/mm3 (0.16-1.47); MONOCYTES PERCENT AUTO 15 % (4-13); NEUTROPHILS ABSOLUTE AUTO 6.97 K/mm3 (1.96-9.15); NEUTROPHILS PERCENT AUTO 57 % (41-73); White Blood Cell Count 12.21 K/mm3 (4.00-11.30)
[2021-04-30 06:33] LABS: SARS-Cov-2 (COVID-19) PCR, MMC POSITIVE (NEGATIVE)
--- NOTE | 2021-04-30 09:46 | NUR ---
PT ARRIVED AOX4 AND COOPERATIVE OF CARE TO ROOM AT 0915. PT DOING WELL ON 4L REPORTS FEELING MUCH BETTER AND NOT SOB. CALL LIGHT WITHIN REACH, WILL CONTINUE TO MONITOR.
--- NOTE | 2021-04-30 17:51 | NUR ---
PT DOING WELL AT THIS TIME. PT STATES HE IS DOING GOOD AND ONLY REQUESTED RT X1. PT IS INDEPENDENT IN ROOM AND IS MAINTAINING IN THE 90s ON 4L. PT HAS CALL LIGHT WITHIN REACH. WILL CONTINUE TO MONITOR.
--- NOTE | 2021-04-30 19:10 | NUR ---
ASSUMED CARE RECEIVED REPORT FROM EVANS LEE. PT RESTING, IN NAD. NO ACUTE NEEDS ASSESSED AT THIS TIME. CALL LIGHT, POSSESSIONS IN REACH, BED IN LOW AND LOCKED POSITION. INDEPENDENT IN ROOM.
--- NOTE | 2021-04-30 20:24 | NUR ---
PT REFUSED NS FLUSH.
--- NOTE | 2021-04-30 20:24 | NUR ---
PT REFUSED NS FLUSH TO LT HAND.
--- NOTE | 2021-05-01 00:25 | NUR ---
THIS RN IN PT ROOM ADMINISTERING 0000 DOSE OF SOLUMEDROL. PT EXPRESSING CONCERNS R/T STEROID, STATING, "STEROIDS USUALLLY MAKE ME FEEL ANGRY AND I DON'T WANT TO HURT ANYONE'S FEELINGS OR ACT OUT IRRATIONALLY." RE-ENFORCED RATIONAL FOR STEROID, TO HELP EASE PT'S RESPIRATORY EFFORT AND DECREASE INFLAMMATION. PT AGREEABLE TO TAKING ORDERED DOSE OF STEROID, BUT STATES HE WANTS TO TAPER IT DOWN. ENCOURAGED PT TO EXPRESS CONCERNS WITH THE PROVIDER DURING ROUNDS TODAY. PT INDICATED UNDERSTANDING. WILL INFORM DAY RN OF PT'S REQUEST WELL.
--- NOTE | 2021-05-01 04:36 | NUR ---
SHIFT SUMMARY PT RESTING, IN NAD. NO ACUTE CONCERNS TO REPORT OVERNIGHT. APPEARED TO SLEEP ON AND OFF. VS REVIEWED,WNL; O2 SATS STABLE ON 4L/NC. PT DENIES SOB, RESP DISTRESS. NO CARDIAC EVENTS OVERNIGHT, OTHER THAN NEEDING LEADS REPLACED. NO ACUTE NEEDS ASSESSED AT THIS TIME. CALL LIGHT, POSSESSIONS IN REACH, BED IN LOW AND LOCKED POSITION. WILL CONTINUE TO PROVIDE CARE NEEDED UNTIL REPORT GIVEN TO ONCOMING RN.
[2021-05-01 04:56] LABS: BASOPHILS ABSOLUTE AUTO 0.02 K/mm3 (0.00-0.23); BASOPHILS PERCENT AUTO 0 % (0-2); EOSINOPHILS PERCENT AUTO 0 % (0-6); Hematocrit 39.1 % (37.0-53.0); Hemoglobin 13.3 g/dL (13.5-17.5); IMMATURE GRAN ABSOLUTE AUTO 0.04 K/mm3 (0.00-0.10); IMMATURE GRAN PERCENT AUTO 0 % (0-1); LYMPHOCYTES ABSOLUTE AUTO 1.11 K/mm3 (0.84-5.20); LYMPHOCYTES PERCENT AUTO 9 % (21-46); MONOCYTES ABSOLUTE AUTO 0.75 K/mm3 (0.16-1.47); MONOCYTES PERCENT AUTO 6 % (4-13); Mean Corpuscular HGB 30.7 pg (26.0-34.0); Mean Corpuscular Volume 90 fL (80-100); NEUTROPHILS ABSOLUTE AUTO 10.55 K/mm3 (1.96-9.15); NEUTROPHILS PERCENT AUTO 85 % (41-73); Platelet Count 181 K/mm3 (150-400); RDW Coefficient Variation 13.2 % (11.7-14.2); RDW Standard Deviation 43.7 fL (35.1-46.3); Red Blood Cell Count 4.33 M/mm3 (4.30-5.90); White Blood Cell Count 12.47 K/mm3 (4.00-11.30)
[2021-05-01 05:22] LABS: Alanine Aminotransfer (ALT/SGP 35 U/L (12-78); Alk Phos 58 U/L (50-136); Anion Gap 7 mmol/L (6-16); Aspartate Aminotrans (AST/SGOT 29 U/L (12-37); Bilirubin, Total 0.4 mg/dL (0.1-1.0); Blood Urea Nitrogen 19 mg/dL (8-24); Bun/Creatinine Ratio 18.4 (12.0-20.0); CO2, Blood 24 mmol/L (21-32); Calcium, Blood 9.1 mg/dL (8.5-10.1); Chloride, Blood 108 mmol/L (98-108); Creatinine, Blood 1.03 mg/dL (0.60-1.20); Globulin, Blood 3.1 g/dL (2.2-4.0); Glomerular Filtration Rate >60 (60-); Glucose, Blood 118 mg/dL (70-99); Phosphorus, Blood 3.7 mg/dL (2.5-4.9); Potassium, Blood 4.6 mmol/L (3.5-5.5); Sodium, Blood 139 mmol/L (136-145); Total Protein, Blood 6.1 g/dL (6.4-8.2)
--- NOTE | 2021-05-01 17:32 | NUR ---
PT AOX4 AND COOPERATIVE OF CARE. PT HAS BEEN TITRATED DOWN TODAY TO 1L NASAL CANULA. PT IS INDEPENDENT IN ROOM AND CALLS APPROPRIATELY. NO DISTRESS NOTED AT THIS, CALL LIGHT IS WITHIN REACH WILL CONTINUE TO MONITOR.
--- NOTE | 2021-05-02 04:53 | NUR ---
PATIENT AWAKE ALL NIGHT. UNABLE TO RELAX ABOUT HIS REGULAR HOME NIGHT TIME HABITS. MOST RECENTLY, HE CRAWLED OOB TO THE CHAIR, WHEN HE HEARD THE ALARM, HE STOPPED. 2 STAFF HAD TO GRAB HIM TO GET HIM BACK TO BED HE TEETERED AND WAS BREATHLESS ON RETURNING TO BED. 02 RETURNING TO 90'S AFTER INCREASING 02 TO 6 LITERS PER MINUTE. CALL PLACED TO MD INFORM AND OBTAIN ORDERS
--- NOTE | 2021-05-02 05:06 | NUR ---
ERROR IN ABOVE NOTE. WRONG PATIENT
--- NOTE | 2021-05-02 07:53 | NUR ---
DID WELL LAST NIGHT AFTER RECEIVING 1MG OF ATIVAN TWICE OVER A FEW HOURS FOR HIS "STEROID CRAZINESS".
[2021-05-02] MEDS ORDERED: Prednisone10 MG PO (13:22)
[2021-05-02] MEDS ORDERED: VISBIOME 112.51 EACH PO ×2 (13:23→13:43)
[2021-05-02] MEDS ORDERED: GUAI600T33 PO (13:30)
[2021-05-02] MEDS ORDERED: AZIT500 PO (13:30)
--- NOTE | 2021-05-02 16:28 | NUR ---
DISCHARGE NOTE PATIENT WAS DISCHARGED VIA WHEELCHAIR TO HOME WITH DAUGHTER. PATIENT VERBALIZED UNDERSTANDING OF DISCHARGE INSTRUCTIONS AND MEDICATIONS. BELONGING SENT HOME WITH PATIENT. PATIENT REFUSED HOME O2 WITH YOLANDA. PATIENT STATED THEY WILL GET IN TOUCH WITH ATRIO AFTER DISCHARGE.
== END 2021-05-02 16:29 | disposition home or self-care (01) | DRG 177 ==
LOC: ER 01:26 → MEDS 05:43
PROVIDERS: Student in an Organized Health Care Education/Training Program; ADMIT Internal Medicine
PROC: 8E0ZXY6 Isolation (ICD-10-PCS; principal; 2021-04-30)
PROC: 3E0333Z Introduction of Anti-inflammatory into Peripheral Vein, Percutaneous Approach (ICD-10-PCS; 2021-04-30)
DX: U07.1 COVID-19 (principal); J96.01 Acute respiratory failure with hypoxia; J44.1 Chronic obstructive pulmonary disease with (acute) exacerbation; K21.9 Gastro-esophageal reflux disease without esophagitis; E87.6 Hypokalemia; Z53.29 Procedure and treatment not carried out because of patient's decision for other reasons; I10 Essential (primary) hypertension; E78.5 Hyperlipidemia, unspecified; M81.0 Age-related osteoporosis without current pathological fracture; I25.10 Atherosclerotic heart disease of native coronary artery without angina pectoris; M54.50 Low back pain, unspecified; M19.90 Unspecified osteoarthritis, unspecified site; Z88.1 Allergy status to other antibiotic agents; Z88.2 Allergy status to sulfonamides; Z88.8 Allergy status to other drugs, medicaments and biological substances; Z79.51 Long term (current) use of inhaled steroids; Z79.52 Long term (current) use of systemic steroids; Z79.82 Long term (current) use of aspirin; Z79.899 Other long term (current) drug therapy; Z98.890 Other specified postprocedural states; Z87.891 Personal history of nicotine dependence
CPT/HCPCS: 36415; 71045; 80053; 83880; 84100; 84145; 84484; 85025; 85027; 93005; 93010; 94640; 94644; 94645; 94667; 94668; 94760; 94761; 96365; 96366; 96367; 96375; 99285-25; A9270; J1650; J1956; J2930; J3475; J3480; J7512; U0004

== ENCOUNTER 2021-07-19 10:28 | Inpatient (IN) | payer OTHER ==
[~2021-07-19] VITALS: Ht 172.7 cm; Wt 102.0 kg
[~2021-07-19 10:28] MED LIST changes: -AIRDUO RESPICL1 EAC4 INH; -ALBU3IS INH; +VISBIOME 112.51 EACH PO
[2021-07-19 10:47] LABS: BASOPHILS ABSOLUTE AUTO 0.14 K/mm3 (0.00-0.23); BASOPHILS PERCENT AUTO 1 % (0-2); EOSINOPHILS ABSOLUTE AUTO 0.09 K/mm3 (0.00-0.68); EOSINOPHILS PERCENT AUTO 1 % (0-6); Hematocrit 43.3 % (37.0-53.0); Hemoglobin 14.6 g/dL (13.5-17.5); IMMATURE GRAN ABSOLUTE AUTO 0.17 K/mm3 (0.00-0.10); IMMATURE GRAN PERCENT AUTO 1 % (0-1); LYMPHOCYTES ABSOLUTE AUTO 1.36 K/mm3 (0.84-5.20); LYMPHOCYTES PERCENT AUTO 10 % (21-46); MONOCYTES ABSOLUTE AUTO 0.66 K/mm3 (0.16-1.47); MONOCYTES PERCENT AUTO 5 % (4-13); Mean Corpuscular HGB 30.4 pg (26.0-34.0); Mean Corpuscular HGB Conc 33.7 g/dL (31.5-36.5); Mean Corpuscular Volume 90 fL (80-100); Mean Platelet Volume 12.5 fL (9.1-12.4); NEUTROPHILS ABSOLUTE AUTO 11.52 K/mm3 (1.96-9.15); NEUTROPHILS PERCENT AUTO 83 % (41-73); Platelet Count 235 K/mm3 (150-400); RDW Coefficient Variation 13.8 % (11.7-14.2); RDW Standard Deviation 46.1 fL (35.1-46.3); White Blood Cell Count 13.94 K/mm3 (4.00-11.30)
[2021-07-19 11:15] LABS: Alanine Aminotransfer (ALT/SGP 37 U/L (12-78); Albumin, Blood 3.5 g/dL (3.4-5.0); Albumin/Globulin Ratio 1.1 (0.8-1.8); Alk Phos 55 U/L (50-136); Anion Gap 6 mmol/L (6-16); Aspartate Aminotrans (AST/SGOT 26 U/L (12-37); Bilirubin, Total 0.8 mg/dL (0.1-1.0); Blood Urea Nitrogen 11 mg/dL (8-24); Bun/Creatinine Ratio 11.9 (12.0-20.0); CO2, Blood 23 mmol/L (21-32); Calcium, Blood 9.1 mg/dL (8.5-10.1); Chloride, Blood 112 mmol/L (98-108); Creatinine, Blood 0.93 mg/dL (0.60-1.20); Globulin, Blood 3.2 g/dL (2.2-4.0); Glomerular Filtration Rate >60 (60-); Glucose, Blood 122 mg/dL (70-99); Potassium, Blood 3.9 mmol/L (3.5-5.5); Sodium, Blood 141 mmol/L (136-145); Total Protein, Blood 6.7 g/dL (6.4-8.2); Troponin I <0.015 ng/mL (0.000-0.040)
[2021-07-19] MEDS ORDERED: ALBU2.5V5 NEB (14:11)
[2021-07-19] MEDS ORDERED: AMLO10 PO (14:13)
[2021-07-19] MEDS ORDERED: ASPI81CH PO (14:14)
[2021-07-19] MEDS ORDERED: ATORVASTATIN CA80 M1 PO (14:15)
[2021-07-19] MEDS ORDERED: Bisoprolol Fuma10 MG PO (14:16)
[2021-07-19] MEDS ORDERED: Flonase 0.05% Nasal (14:17)
[2021-07-19] MEDS ORDERED: Advair Diskus 250-50 INH (14:19)
[2021-07-19] MEDS ORDERED: ipratropium bromide INH (14:20)
[2021-07-19] MEDS ORDERED: ISOSORBIDE MONO60 MG PO (14:21)
[2021-07-19] MEDS ORDERED: [UNRECOGNIZED DRUG - OTHER] PO (14:22)
[2021-07-19] MEDS ORDERED: NITR.4SL SL (14:24)
[2021-07-19] MEDS ORDERED: PANT40 PO (14:25)
[2021-07-19] MEDS ORDERED: DELTASONE20 MG PO (14:26)
[2021-07-19] MEDS ORDERED: IPRAT-ALBUT 0.5-3 ML NEB (17:29)
--- NOTE | 2021-07-19 17:39 | NUR ---
SUMMARY PT ADMITTED FROM THE ER FOR COPD EXACERBATION, PT IS ALERT AND ORIENTED, ABLE TO STAND AND TRANSFER SELF FROM THE GURNEY TO THE BED, PT IS ON 2L NC, ROOM AIR IS HIS BASELINE, PT HAS AUDIBLE EXPIRATORY WHEEZES, ORIENTED PT TO ROOM AND CALL SYSTEM, NO COMPLAINTS, VSS, WILL CONT TO MONITOR
--- NOTE | 2021-07-20 04:55 | NUR ---
PT IS A/OX4. INDEPENDENT IN ROOM, SATS REMAIN IN THE 90s ON 2L NC. EXPIRATORY WHEEZES ARE HEARD T/O. PT CALLS APPROPRIATELY FOR NEEDS. WE'LL CONTINUE TO MONITOR.
[2021-07-20 05:06] LABS: BASOPHILS ABSOLUTE AUTO 0.04 K/mm3 (0.00-0.23); BASOPHILS PERCENT AUTO 0 % (0-2); EOSINOPHILS PERCENT AUTO 0 % (0-6); Hematocrit 43.1 % (37.0-53.0); Hemoglobin 13.9 g/dL (13.5-17.5); IMMATURE GRAN ABSOLUTE AUTO 0.26 K/mm3 (0.00-0.10); IMMATURE GRAN PERCENT AUTO 2 % (0-1); LYMPHOCYTES ABSOLUTE AUTO 1.02 K/mm3 (0.84-5.20); LYMPHOCYTES PERCENT AUTO 7 % (21-46); MONOCYTES ABSOLUTE AUTO 0.63 K/mm3 (0.16-1.47); MONOCYTES PERCENT AUTO 4 % (4-13); Mean Corpuscular HGB 29.8 pg (26.0-34.0); Mean Corpuscular HGB Conc 32.3 g/dL (31.5-36.5); Mean Corpuscular Volume 92 fL (80-100); Mean Platelet Volume 12.7 fL (9.1-12.4); NEUTROPHILS ABSOLUTE AUTO 13.76 K/mm3 (1.96-9.15); NEUTROPHILS PERCENT AUTO 88 % (41-73); Platelet Count 223 K/mm3 (150-400); RDW Coefficient Variation 13.9 % (11.7-14.2); RDW Standard Deviation 47.1 fL (35.1-46.3); Red Blood Cell Count 4.67 M/mm3 (4.30-5.90); White Blood Cell Count 15.71 K/mm3 (4.00-11.30)
[2021-07-20 06:01] LABS: Alanine Aminotransfer (ALT/SGP 35 U/L (12-78); Albumin, Blood 3.5 g/dL (3.4-5.0); Albumin/Globulin Ratio 1.3 (0.8-1.8); Alk Phos 51 U/L (50-136); Anion Gap 11 mmol/L (6-16); Aspartate Aminotrans (AST/SGOT 25 U/L (12-37); Bilirubin, Total 0.6 mg/dL (0.1-1.0); Blood Urea Nitrogen 17 mg/dL (8-24); Bun/Creatinine Ratio 17.4 (12.0-20.0); CO2, Blood 23 mmol/L (21-32); Calcium, Blood 9.4 mg/dL (8.5-10.1); Chloride, Blood 105 mmol/L (98-108); Creatinine, Blood 0.98 mg/dL (0.60-1.20); Globulin, Blood 2.7 g/dL (2.2-4.0); Glomerular Filtration Rate >60 (60-); Glucose, Blood 128 mg/dL (70-99); Sodium, Blood 139 mmol/L (136-145); Total Protein, Blood 6.2 g/dL (6.4-8.2)
--- NOTE | 2021-07-20 18:49 | NUR ---
SHIFT SUMMARY; PHILLIP IS INDEPENDANT IN ROOM DURING DAY. HE REMAINS ON 2-3 LITERS O2 DEPENDING ON NEEDS. HE TOOK SHOWER WITIHOUT ASSIST TODAY AND HAS NO NEEDS DURING DAY. HE IS RECEIVING IV ANTIBIOTICS. HIS LUNGS ARE CLEAR IN UPPER LOBES WITH SLIGHT WHEEZES AND CRACKLES NOTED IN BASES THAT CLEAR WITH COUGH. HAS IV TO RIGHT WRIST THAT IS SL AT THIS TIME. PATIENT VALLS APPROPRIATELY FOR ANY WANTS OR NEEDS. HAS PLEASANT AFFECT. PER TODAY PHILLIP MAY DC TOMORROW OR THURSDAY. MOJGAN COLEMAN RN
[2021-07-21 04:47] LABS: BASOPHILS ABSOLUTE AUTO 0.04 K/mm3 (0.00-0.23); BASOPHILS PERCENT AUTO 0 % (0-2); EOSINOPHILS PERCENT AUTO 0 % (0-6); Hematocrit 41.7 % (37.0-53.0); Hemoglobin 13.7 g/dL (13.5-17.5); IMMATURE GRAN ABSOLUTE AUTO 0.17 K/mm3 (0.00-0.10); IMMATURE GRAN PERCENT AUTO 1 % (0-1); LYMPHOCYTES ABSOLUTE AUTO 1.06 K/mm3 (0.84-5.20); LYMPHOCYTES PERCENT AUTO 6 % (21-46); MONOCYTES ABSOLUTE AUTO 0.83 K/mm3 (0.16-1.47); MONOCYTES PERCENT AUTO 4 % (4-13); Mean Corpuscular HGB 30.2 pg (26.0-34.0); Mean Corpuscular HGB Conc 32.9 g/dL (31.5-36.5); Mean Corpuscular Volume 92 fL (80-100); Mean Platelet Volume 12.1 fL (9.1-12.4); NEUTROPHILS PERCENT AUTO 89 % (41-73); Platelet Count 199 K/mm3 (150-400); RDW Standard Deviation 47.3 fL (35.1-46.3); Red Blood Cell Count 4.54 M/mm3 (4.30-5.90)
[2021-07-21 06:02] LABS: Alanine Aminotransfer (ALT/SGP 38 U/L (12-78); Albumin, Blood 3.3 g/dL (3.4-5.0); Albumin/Globulin Ratio 1.3 (0.8-1.8); Alk Phos 49 U/L (50-136); Anion Gap 5 mmol/L (6-16); Aspartate Aminotrans (AST/SGOT 32 U/L (12-37); Bilirubin, Total 0.4 mg/dL (0.1-1.0); Blood Urea Nitrogen 20 mg/dL (8-24); Bun/Creatinine Ratio 20.2 (12.0-20.0); CO2, Blood 25 mmol/L (21-32); Chloride, Blood 112 mmol/L (98-108); Creatinine, Blood 0.99 mg/dL (0.60-1.20); Globulin, Blood 2.6 g/dL (2.2-4.0); Glomerular Filtration Rate >60 (60-); Glucose, Blood 114 mg/dL (70-99); Potassium, Blood 4.6 mmol/L (3.5-5.5); Sodium, Blood 142 mmol/L (136-145); Total Protein, Blood 5.9 g/dL (6.4-8.2)
--- NOTE | 2021-07-21 06:11 | NUR ---
SHIFT SUMMARY AOX4. VSS. SPO2 >90% ON 2L O2 (BASELINE). REPORTS DYSPNEA, BREATHING TX GIVEN PRN. LS DIM c SCATTERED WHEEZES. E/U RESP. TELE NSR. REPORTS CHRONIC PAIN ALLOVER BUT DENIES NEED FOR MEDICATION. IND IN RM & ABLE TO MAKE NEEDS KNOWN. CALL LIGHT IN REACH. WCTM UNTIL DAY NURSE ASSUMES CARE.
--- NOTE | 2021-07-21 18:04 | NUR ---
SHIFT SUMMARY; PATIENT APPEARS ANXIOUS DURING DAY TODAY. ORDERS XANAX FOR PATIENT PRN ANXIETY FROM STEROIDS. PAITENT CONCERNED ABOUTTAKING INCREASED STEROIDS SAYS "I GET MEAN AND HONERY WHEN I TAKE THEM" PATIENT REASSURED THAT WILL GIVE XANAX IF NEEDED TO ASSIST WITH HIS ANXIETY. AM LABS SHOW ELEVATED WBC OF 19, HE IS NOT MOVING MUCH AIR IN HIS LOWER LUNGS. WHEEZES HEARD IN UPPER LOBES AND PER PAITENT HE IS FEELING WORSE. THIS AFTERNOON B/P WAS LOW AT 84/49 HYDRO ELECTRIC STATION OPERATOR TOOK TWICE. NOTIFIED VIA TELEPHONE AND ORDER TO GIVE 500 BOLUS NS AND RETAKE B/P. WILL REMAIN AVAILABLE FOR THIS PAITENT UNTIL HAND OFF AT SHIFT CHANGE. MOJGAN COLEMAN RN PRIOR TO GIVING 500ML BOLUS B/P TAKEN AND IT WAS 123/78 WHILE HE WAS SITTING ON EDGE OF BED. DECISION TO GIVE BOLUS PATIENT APPEARS TO BE ORTHOSTATIC B/P PREVIOUS WAS TAKEN WHEN PAITENT LYING DOWN. MOJGAN COLEMAN RN
[2021-07-21 18:24] LABS: Source, Urine Clean Catch
[2021-07-21 18:28] LABS: Appearance, Urine Clear (Clear); Bilirubin, Urine Neg (Neg); Blood, Urine Neg (Neg); Color, Urine Yellow (P-Yellow); Glucose Qualitative, Urine Neg (Neg); Ketones, Urine Neg (Neg); Leukocyte Esterase, Urine Neg (Neg); Nitrite, Urine Neg (Neg); Protein, Urine Neg (Neg); Urobilinogen, Urine NORM (Normal)
--- NOTE | 2021-07-22 06:43 | NUR ---
SHIFT SUMMARY PT IS A 65 Y/O MALE, ADMITTED FOR COPD EXACERBATION. PT WAS A&O X 4 AT START OF SHIFT, MILDLY ANXIOUS, AND INDEPENDENT IN THE ROOM. NO C/O PAIN, NAUSEA OR SOB. ON 2-3L O2 VIA NC, SATTING > 90%. THIS AM, APPROXIMATELY 0420, PT WAS WOKEN FOR VITAL SIGNS AND HAD A PANIC ATTACK. PT WAS VERY ANXIOUS, HYPERVENTILATING AND REPEATING "I NEED ALBUTEROL". HE WAS GIVEN A BREATHING TX, AND XANAX FOR ANXIETY. ON ASSESSMENT, PT DID NOT KNOW WHERE HE WAS OR THE DATE, A&0 X 0. VERY ANXIOUS AND AGITATED, GRABBING AT HIS HEAD, SAYING THAT "MY HEAD IS NOT WORKING RIGHT NOW" AND C/O A FERNANDEZ. REFUSED ANY TYLENOL. PT DID GO BACK TO SLEEP AROUND 0500. HOSPITALIST DR BAUMAN NOTIFIED, NO CHANGES IN ORDERS AT THAT TIME. NO OTHER ACUTE CHANGES IN PT CONDITION NOTED. WILL CONTINUE TO MONITOR AND TREAT PER EMAR UNTIL HAND OFF TO DAY SHIFT RN.
[2021-07-22 09:13] LABS: BASOPHILS ABSOLUTE AUTO 0.03 K/mm3 (0.00-0.23); BASOPHILS PERCENT AUTO 0 % (0-2); EOSINOPHILS PERCENT AUTO 0 % (0-6); Hemoglobin 14.4 g/dL (13.5-17.5); IMMATURE GRAN PERCENT AUTO 1 % (0-1); LYMPHOCYTES ABSOLUTE AUTO 1.22 K/mm3 (0.84-5.20); LYMPHOCYTES PERCENT AUTO 7 % (21-46); MONOCYTES ABSOLUTE AUTO 1.02 K/mm3 (0.16-1.47); MONOCYTES PERCENT AUTO 6 % (4-13); Mean Corpuscular HGB 30.4 pg (26.0-34.0); Mean Corpuscular HGB Conc 34.3 g/dL (31.5-36.5); Mean Corpuscular Volume 89 fL (80-100); NEUTROPHILS ABSOLUTE AUTO 15.38 K/mm3 (1.96-9.15); NEUTROPHILS PERCENT AUTO 86 % (41-73); RDW Coefficient Variation 13.6 % (11.7-14.2); RDW Standard Deviation 44.4 fL (35.1-46.3); Red Blood Cell Count 4.73 M/mm3 (4.30-5.90); White Blood Cell Count 17.85 K/mm3 (4.00-11.30)
[2021-07-22 09:17] LABS: Mean Platelet Volume 12.8 fL (9.1-12.4)
[2021-07-22 09:31] LABS: Alanine Aminotransfer (ALT/SGP 41 U/L (12-78); Albumin, Blood 3.2 g/dL (3.4-5.0); Albumin/Globulin Ratio 1.2 (0.8-1.8); Alk Phos 47 U/L (50-136); Anion Gap 7 mmol/L (6-16); Aspartate Aminotrans (AST/SGOT 28 U/L (12-37); Bilirubin, Total 0.5 mg/dL (0.1-1.0); Blood Urea Nitrogen 18 mg/dL (8-24); Bun/Creatinine Ratio 19.8 (12.0-20.0); CO2, Blood 22 mmol/L (21-32); Calcium, Blood 9.2 mg/dL (8.5-10.1); Chloride, Blood 112 mmol/L (98-108); Creatinine, Blood 0.91 mg/dL (0.60-1.20); Globulin, Blood 2.6 g/dL (2.2-4.0); Glomerular Filtration Rate >60 (60-); Glucose, Blood 127 mg/dL (70-99); Potassium, Blood 4.2 mmol/L (3.5-5.5); Sodium, Blood 141 mmol/L (136-145); Total Protein, Blood 5.8 g/dL (6.4-8.2)
[2021-07-22 12:12] LABS: Magnesium, Blood 2.3 mg/dL (1.6-2.4); Phosphorus, Blood 3.3 mg/dL (2.5-4.9)
--- NOTE | 2021-07-22 12:30 | NUR ---
Initial Interview with [facility] Community Regional Geodetic Advisor 1. Who did you speak with? Spoke with patient 2. What is the patient's prior level of functions? Patient lives with his daughter and two granddaughters. Patient independent and able to perform ADLs. Daughter assists if needed. Patient has a walker if needed. Patient is still able to drive, but sold his vehicle. Daughter provides transportation as needed or patient able to drive daughter's vehicle. 3. What is the patient's current living situation? Patient lives with his daughter 4. Is the patient and/or family able to provide transportation to and from doctor's appointments and spanish moss picker prescriptions? Daughter or patient drives as needed. Patient sold his vehicle, but able to use his daughter's car. 5. Does patient still drive? Yes 6. POA/PCP/NOK: NOK: daughter Nicole 7. Discharge goals: TBD -Home: TBD -DME: TBD -Medication Management: independent -Preferred Pharmacy: [facility] -Housekeeping need: daughter assists -Cooking: daughter assists 8. List barriers to discharge: None known at this time 9. Discharge Plan: Home/TBD 10. PCP Follow up appointment: Will be scheduled within seven calendar days of discharge
[2021-07-22 12:54] LABS: Platelet Count 182 K/mm3 (150-400)
--- NOTE | 2021-07-22 18:43 | NUR ---
PT HAS BEEN COOPERATIVE WITH CARE, PLEASANT WITH A MOSTLY FLAT AFFECT. REMAINS ON 2LNC. NO C/O OF PAIN OR DISCOMFORT. PT IS HOPING TO BE DISCHARGE HOME TOMORROW. NO ACUTE CHANGES NOTED THIS SHIFT, WILL CONTINUE TO MONITOR AND REPORT TO ONCOMING RN.
[2021-07-23 00:26] LABS: BASOPHILS ABSOLUTE AUTO 0.02 K/mm3 (0.00-0.23); BASOPHILS PERCENT AUTO 0 % (0-2); EOSINOPHILS ABSOLUTE AUTO 0.01 K/mm3 (0.00-0.68); EOSINOPHILS PERCENT AUTO 0 % (0-6); Hematocrit 40.6 % (37.0-53.0); Hemoglobin 13.7 g/dL (13.5-17.5); IMMATURE GRAN ABSOLUTE AUTO 0.19 K/mm3 (0.00-0.10); IMMATURE GRAN PERCENT AUTO 1 % (0-1); LYMPHOCYTES ABSOLUTE AUTO 0.88 K/mm3 (0.84-5.20); LYMPHOCYTES PERCENT AUTO 6 % (21-46); MONOCYTES ABSOLUTE AUTO 0.78 K/mm3 (0.16-1.47); MONOCYTES PERCENT AUTO 6 % (4-13); Mean Corpuscular HGB 30.2 pg (26.0-34.0); Mean Corpuscular HGB Conc 33.7 g/dL (31.5-36.5); Mean Corpuscular Volume 90 fL (80-100); Mean Platelet Volume 12.1 fL (9.1-12.4); NEUTROPHILS ABSOLUTE AUTO 12.07 K/mm3 (1.96-9.15); NEUTROPHILS PERCENT AUTO 87 % (41-73); Platelet Count 189 K/mm3 (150-400); RDW Coefficient Variation 13.5 % (11.7-14.2); RDW Standard Deviation 44.5 fL (35.1-46.3); Red Blood Cell Count 4.53 M/mm3 (4.30-5.90); White Blood Cell Count 13.95 K/mm3 (4.00-11.30)
[2021-07-23 00:43] LABS: Alanine Aminotransfer (ALT/SGP 41 U/L (12-78); Albumin, Blood 2.9 g/dL (3.4-5.0); Alk Phos 44 U/L (50-136); Anion Gap 6 mmol/L (6-16); Aspartate Aminotrans (AST/SGOT 18 U/L (12-37); Bilirubin, Total 0.4 mg/dL (0.1-1.0); Blood Urea Nitrogen 21 mg/dL (8-24); CO2, Blood 24 mmol/L (21-32); Calcium, Blood 8.9 mg/dL (8.5-10.1); Chloride, Blood 109 mmol/L (98-108); Creatinine, Blood 0.95 mg/dL (0.60-1.20); Globulin, Blood 2.8 g/dL (2.2-4.0); Glomerular Filtration Rate >60 (60-); Glucose, Blood 165 mg/dL (70-99); Potassium, Blood 4.1 mmol/L (3.5-5.5); Sodium, Blood 139 mmol/L (136-145); Total Protein, Blood 5.7 g/dL (6.4-8.2)
--- NOTE | 2021-07-23 05:10 | NUR ---
SHIFT SUMMARY AOX4. VSS. TELE NSR 70'S. SPO2 >90% ON RA. REPORTS DYSPNEA @REST. LS DIM c SCATTERED FINE WHEEZES. BREATHING TX & SOLUMEDROL GIVEN PER SEP. DENIES PAIN, N/V. THIS AM PT REPORTS "FEELING ANXIOUS ABOUT BREATHING." STATES HE FEELS HES NOT GETTING ENOUGH AIR, SPO2 @96%, GAVE 0.5MG XANAX & ENCOURAGED PERSONAL FAN USE. CALL LIGHT IN REACH. WCTM UNTIL DAY NURSE ASSUMES CARE.
[2021-07-23] MEDS ORDERED: Prednisone10 MG (11:13)
[2021-07-23] MEDS ORDERED: GUAI600T33 PO (11:14)
[2021-07-23] MEDS ORDERED: LEVFLO500 PO (11:15)
[2021-07-23] MEDS ORDERED: VISBIOME 112.51 EACH PO (11:16)
--- NOTE | 2021-07-23 12:57 | NUR ---
DISCHARGE DISCHARGE INSTRUCTIONS, MEDICATION LIST AND FOLLOW UP APPOINTMENTS REVIEWED WITH PT. QUESTIONS/CONCERNS ANSWERED. PO LEVAQUIN GIVEN BEFORE DISCHARGE. NEW SCRIPS SENT TO [facility] PER PT PREFERENCE, ESCORTED OUT VIA W/C BY [facility]
--- NOTE | 2021-07-23 15:07 | NUR ---
Per Dr. Stafford discharge appropriate on: 07/23/21. Patient does not oppose to discharge. Patient's family (daughter Nicole) provided transportation to residence. DME: patient able to complete ADL's independently; no DME needed; patient states he has a walker if needed. Home Oxygen evaluation completed on 07/22/21: no home Oxygen needed. Patient will be contacted by [facility] Transition of Care to schedule hospital follow-up with PCP Dr. Adis Coulter. Patient has a good support network of family and friends. Patient to contact PCP if any questions regarding medication management or if condition worsens, patient to go to urgent care. No barriers to discharge.
== END 2021-07-23 12:48 | disposition home or self-care (01) | DRG 189 ==
LOC: ER 10:28 → ERHOLD 14:17 → MEDS 15:31
PROVIDERS: Emergency Medicine; Hospitalist; ADMIT Family Medicine
DX: J96.01 Acute respiratory failure with hypoxia (principal); J44.1 Chronic obstructive pulmonary disease with (acute) exacerbation; G89.4 Chronic pain syndrome; M54.50 Low back pain, unspecified; R51.9 Headache, unspecified; M19.90 Unspecified osteoarthritis, unspecified site; I10 Essential (primary) hypertension; E78.5 Hyperlipidemia, unspecified; M81.0 Age-related osteoporosis without current pathological fracture; I25.10 Atherosclerotic heart disease of native coronary artery without angina pectoris; K44.9 Diaphragmatic hernia without obstruction or gangrene; J30.9 Allergic rhinitis, unspecified; K21.9 Gastro-esophageal reflux disease without esophagitis; D72.829 Elevated white blood cell count, unspecified; T38.0X5A Adverse effect of glucocorticoids and synthetic analogues, initial encounter; Z53.29 Procedure and treatment not carried out because of patient's decision for other reasons; Z86.16 Personal history of COVID-19; Z87.891 Personal history of nicotine dependence; Z98.890 Other specified postprocedural states; Z88.1 Allergy status to other antibiotic agents; Z88.2 Allergy status to sulfonamides; Z88.8 Allergy status to other drugs, medicaments and biological substances; Z79.2 Long term (current) use of antibiotics; Z79.82 Long term (current) use of aspirin; Z79.899 Other long term (current) drug therapy
CPT/HCPCS: 36415; 71045; 80053; 81003; 83735; 84100; 84484; 85025; 85730; 87070; 87205; 93005; 93010; 94640; 94644; 94664; 94760; 94761; 96365; 96367; 96375; 99285-25; A9270; J0456; J0696; J1956; J2405; J2765; J2920; J2930; J3370; J7040; J7050

== ENCOUNTER 2021-11-19 07:26 | Day surgery (SDC) | payer OTHER ==
[~2021-11-19] VITALS: Ht 175.3 cm; Wt 107.0 kg
[~2021-11-19 07:26] MED LIST changes: +ALBU2.5V5 NEB; +ATORVASTATIN CA80 M1 PO; +Advair Diskus 250-50 INH; +DELTASONE20 MG PO; +Flonase 0.05% Nasal; +IPRAT-ALBUT 0.5-3 ML NEB; +ISOSORBIDE MONO60 MG PO; +Prednisone10 MG; +ROFL500T PO; +[UNRECOGNIZED DRUG - OTHER] PO; +ipratropium bromide INH
--- NOTE | 2021-11-19 10:43 | NUR ---
DR. FISHMAN AT THE [facility] TO INTERVIEW PATIENT, THIS PATIENT WAS SEEN IN THE OFFICE BY ANOTHER TWISTING FRAME OPERATOR. PATIENT HAS BEEN HERE SINCE 0730 THIS MORNING AND IS UNCOMFORTABLE IN THE BED AND UPSET WITH THE WAIT. RN ADN DR. FISHMAN SPOKE WITH THE PATIENT AND HE WISHES TO PROCEED WITH THE ANGIOGRAM TODAY.
--- NOTE | 2021-11-19 11:12 | NUR ---
PATIENT LEFT PRE OP AREA FOR PROCEDURE.
--- NOTE | 2021-11-19 13:26 | NUR ---
PATIENT LYING FLAT S/P CORONARY ANGIOGRAM AND C/O NAUSEA. GIVEN SECOND DOSE OF ZOFRAN PER DR. FISHMAN ORDERED. ZOFRAN 4 MG IV NOW GIVEN. CONTINUE TO MONITOR. SAT 92%. SIDE RAILS UP X 2. CALL LIGHT IN REACH, MONITOR IN PLACE. TR BAND TO THE RIGHT RADIAL WITH 13 ML OF AIR IN THE BAND.
--- NOTE | 2021-11-19 13:29 | NUR ---
1230 PATIENT RETURNED FROM THE CATH. LYING ON THE LEFT SIDE, HEAVILY SEDATED. MONITOR APPLIED. SBAR RECEIVED FROM EVANS PERDOMO. SR X 2 UP, CALL LIGHT IN REACH. 2LPM BNC APPLIED. IVF INFUSING TO LEFT HAND PIV. RIGHT RADIAL PULSE 2+ WITH GOOD PLEATH WAVEFORM.
--- NOTE | 2021-11-19 14:30 | NUR ---
PATIENT WAKING. BEGAN RELEASING AIR FROM THE TR BAND. PATIENT ASSISTED TO SITTING ON THE SIDE OF THE BED. STILL SLIGHTLY NAUSEATED. FOOD TRAY SET ASIDE FOR NOW.
--- NOTE | 2021-11-19 15:18 | NUR ---
PATIENT SITTING AT THE BEDSIDE RECEIVING A RT TREATMENT FOR AUDIBLE WHEEZING. HE TAKES ABLUTEROL MOHIT TREATMENTS AT HOME AND HAS NOT HAD TREATMENT SINCE 0700 THIS A.M. PATIENT IS TAKING ICE CHIPS POST TREATMENT. WHEEZING IS RESOLVED AT THIS TIME.
--- NOTE | 2021-11-19 15:21 | NUR ---
TR BAND IS FLAT. PATIENT PUT ON PANTS AND IS TAKING ICE CHIPS. NAUSEA SUBSIDED AT THIS TIME.
--- NOTE | 2021-11-19 15:57 | NUR ---
TR BAND REMOVED. SITE CLEANED AND CLOTH DOT PLACED, WHITE BOARD REPLACED TO PREVENT BENDING , PUSHING OR PULLING. PIV REMOVED. CATH TIP INTACT, PRESSURE DRESSING APPLIED. PATIENT DRESSED. AND CALLED FOR DAUGHTER TO COME TO BE HIS SILVERER HOME. REVIEWED DISCHARGE INSTRUCTIONS WITH THE PHILLIP AND FOLLOW UP APPOINTMENT WITH DR. CARRIZALES.
--- NOTE | 2021-11-19 16:45 | NUR ---
6804 PATIENT TO THE WHEELCHAIR, ALL BELONGINGS GATHERED. DISCHARGED HOME WITH KIZZY MMI TEACHER. NAUSEATED WITH MOTION, NAUSEA BAG IN HAND. PATIENT STATES THAT MOTION SICKNESS IS NORMAL FOR HIM. HAS FOLLOW UP APPOINTMENT ON November AT 0930 AND IS ON THE CANCELLATION LIST FOR AN EARLIER APPOINTMENT. UNABLE TO GET A WEEK FOLLOW UP WITH DR. CARRIZALES OR HAKAN SELLERS REQUESTED BY DR. FISHMAN.
== END 2021-11-19 16:30 | disposition home or self-care (01) ==
LOC: MHTC 07:26
DX: I25.118 Atherosclerotic heart disease of native coronary artery with other forms of angina pectoris (principal); R06.02 Shortness of breath; R93.1 Abnormal findings on diagnostic imaging of heart and coronary circulation; I10 Essential (primary) hypertension; J44.9 Chronic obstructive pulmonary disease, unspecified; Z88.1 Allergy status to other antibiotic agents; Z88.8 Allergy status to other drugs, medicaments and biological substances
CPT/HCPCS: 76937; 85347; 93454; 93571; 99152; 99153; C1769; C1887; C1894; J0153; J1644; J2250; J2405; J3010; J7030; J7040; Q9967

== ENCOUNTER 2021-12-23 01:18 | Inpatient (IN) | payer OTHER ==
[~2021-12-23] VITALS: Ht 172.7 cm; Wt 108.7 kg
[2021-12-23 02:20] LABS: BASOPHILS ABSOLUTE AUTO 0.11 K/mm3 (0.00-0.23); BASOPHILS PERCENT AUTO 1 % (0-2); EOSINOPHILS ABSOLUTE AUTO 0.21 K/mm3 (0.00-0.68); EOSINOPHILS PERCENT AUTO 2 % (0-6); Hematocrit 36.8 % (37.0-53.0); IMMATURE GRAN ABSOLUTE AUTO 0.07 K/mm3 (0.00-0.10); IMMATURE GRAN PERCENT AUTO 1 % (0-1); LYMPHOCYTES ABSOLUTE AUTO 2.81 K/mm3 (0.84-5.20); LYMPHOCYTES PERCENT AUTO 22 % (21-46); MONOCYTES ABSOLUTE AUTO 1.27 K/mm3 (0.16-1.47); MONOCYTES PERCENT AUTO 10 % (4-13); Mean Corpuscular HGB 28.2 pg (26.0-34.0); Mean Corpuscular HGB Conc 32.6 g/dL (31.5-36.5); Mean Corpuscular Volume 87 fL (80-100); NEUTROPHILS PERCENT AUTO 66 % (41-73); Platelet Count 213 K/mm3 (150-400); RDW Coefficient Variation 14.1 % (11.7-14.2); RDW Standard Deviation 44.8 fL (35.1-46.3); Red Blood Cell Count 4.25 M/mm3 (4.30-5.90); White Blood Cell Count 12.97 K/mm3 (4.00-11.30)
[2021-12-23 02:29] LABS: Albumin, Blood 3.7 g/dL (3.4-5.0); Albumin/Globulin Ratio 1.3 (0.8-1.8); Bilirubin, Total 0.5 mg/dL (0.1-1.0); Calcium, Blood 9.5 mg/dL (8.5-10.1); Globulin, Blood 2.9 g/dL (2.2-4.0); Potassium, Blood 3.6 mmol/L (3.5-5.5); Total Protein, Blood 6.6 g/dL (6.4-8.2)
[2021-12-23 03:02] LABS: Influenza A, PCR NEGATIVE (NEGATIVE); Influenza B, PCR NEGATIVE (NEGATIVE); Resp Syncytial Virus, PCR NEGATIVE (NEGATIVE); SARS-Cov-2 (COVID-19) PCR, MMC NEGATIVE (NEGATIVE)
[2021-12-23] MEDS ORDERED: DILT120 PO (05:19)
[2021-12-23 14:24] LABS: Adenovirus Not Detected (NOT DETECT); Coronavirus 229E Not Detected (NOT DETECT); Coronavirus HKU1 Not Detected (NOT DETECT); Coronavirus NL63 Not Detected (NOT DETECT); Coronavirus OC43 Not Detected (NOT DETECT); Human Metapneumovirus Not Detected (NOT DETECT); Human Rhinovirus/Enterovirus Detected (NOT DETECT); Influenza A/2009-H1 Not Detected (NOT DETECT); Influenza A/H1 Not Detected (NOT DETECT); Influenza A/H3 Not Detected (NOT DETECT); SARS-Cov-2 (COVID-19), BioFire Not Detected (NOT DETECT)
[2021-12-23 14:25] LABS: Bordetella pertussis Not Detected (NOT DETECT); Chlamydophila pneumoniae Not Detected (NOT DETECT); Influenza B Not Detected (NOT DETECT); Mycoplasma pneumoniae Not Detected (NOT DETECT); Parainfluenza Virus 1 Not Detected (NOT DETECT); Parainfluenza Virus 2 Not Detected (NOT DETECT); Parainfluenza Virus 3 Not Detected (NOT DETECT); Parainfluenza Virus 4 Not Detected (NOT DETECT); Respiratory Syncytial Virus Not Detected (NOT DETECT)
--- NOTE | 2021-12-23 15:30 | NUR ---
Pt arrived to 332 via gurney from ED, report obtained, pt able to stand and transfer self to bed, a/ox3, pleasant and coopertive with care, follows commands well, denies pain at this time, lungs are insp/exp wheeze t/o, dim in bases, resp even with mild laboring, currently on 2liters 02 via n/c, no cough noted, but he reports a productive cough of clear sputum, states it was yellow a few days ago, hrr, tele in place running sr per monitor, see strip, 2+ edema noted, iv to left hand site is clear and patent, btx4, abd flat soft nontender, voids with out diff, skin c/w/d, maew, sarabjit, call light in reach.
--- NOTE | 2021-12-23 18:47 | NUR ---
pt eating dinner, no acute changes. had a breathing tx since on floor, call light in reach.
--- NOTE | 2021-12-24 05:39 | NUR ---
SHIFT SUMMARY AOX4. VSS. TELE NSR @96. SPO2 @96% ON 2L TITRATED TO 1L O2, DOESNT WEAR O2 @BASELINE. EXP WHEEZES HEARD T/O LOBES DIM IN BASES. REPORTS DYSPNEA @REST. RECIEVING BREATHING TX & SOLUMEDROL. REPORTS CHRONIC BACK PAIN, USES MARIJUANA FOR PAIN RELIEF @HOME, DENIES NEED FOR PAIN MEDICATION. DENIES N/V. +2 PEDAL EDEMA. REPORTS ANXIETY/ RESTLESSNESS, MEDICATED 1X c 0.5MG ATIVAN. PT ABLE TO REST WELL. IND IN RM, CALL LIGHT IN REACH & PT ABLE TO MAKE NEEDS KNOWN.
[2021-12-24 05:47] LABS: BASOPHILS ABSOLUTE AUTO 0.03 K/mm3 (0.00-0.23); BASOPHILS PERCENT AUTO 0 % (0-2); EOSINOPHILS ABSOLUTE AUTO 0.01 K/mm3 (0.00-0.68); EOSINOPHILS PERCENT AUTO 0 % (0-6); Hematocrit 35.8 % (37.0-53.0); Hemoglobin 11.4 g/dL (13.5-17.5); IMMATURE GRAN ABSOLUTE AUTO 0.11 K/mm3 (0.00-0.10); IMMATURE GRAN PERCENT AUTO 1 % (0-1); LYMPHOCYTES ABSOLUTE AUTO 0.71 K/mm3 (0.84-5.20); LYMPHOCYTES PERCENT AUTO 5 % (21-46); MONOCYTES ABSOLUTE AUTO 0.52 K/mm3 (0.16-1.47); MONOCYTES PERCENT AUTO 3 % (4-13); Mean Corpuscular HGB 28.2 pg (26.0-34.0); Mean Corpuscular HGB Conc 31.8 g/dL (31.5-36.5); Mean Corpuscular Volume 89 fL (80-100); Mean Platelet Volume 12.6 fL (9.1-12.4); NEUTROPHILS ABSOLUTE AUTO 14.45 K/mm3 (1.96-9.15); NEUTROPHILS PERCENT AUTO 91 % (41-73); Platelet Count 209 K/mm3 (150-400); RDW Coefficient Variation 14.2 % (11.7-14.2); RDW Standard Deviation 45.8 fL (35.1-46.3); Red Blood Cell Count 4.04 M/mm3 (4.30-5.90); White Blood Cell Count 15.83 K/mm3 (4.00-11.30)
[2021-12-24 06:22] LABS: Bun/Creatinine Ratio 15.7 (12.0-20.0); Calcium, Blood 9.4 mg/dL (8.5-10.1); Creatinine, Blood 1.02 mg/dL (0.60-1.20); Potassium, Blood 4.3 mmol/L (3.5-5.5)
--- NOTE | 2021-12-24 13:01 | NUR ---
Upon receiving a spiritual care referral, I visit pt. Pt is emotional and tearful at times. pt shares about his medical issues centered around his lungs and heart. He talks about his depression, his relationship complications and the season where he lost all hope in God (although states that he still prays). 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 I normalize pt's experience, encourage self-care, explore sources of meaning and self-worth and provide therapeutic listening. Pt responds well and shows signs of increase peace and catharsis. Pt asks if I could return to finish our conversation. I will continue to remain available to patient and family.
--- NOTE | 2021-12-24 19:53 | NUR ---
END OF SHIFT SUMMARY: PATIENT CONTINUES TO REQUIRE O2 AT REST AND WITH ACTIVITY. PATIENT DOWN TO 90% ON 1L. INCREASED BACK TO 2L. PATIENT SHORT OF BREATH WITH ACTIVITY. PATIENT ABLE TO RECOVER AT REST WITHOUT ADDITIONAL INTERVENTIONS. PATIENT WHEEZY THROUGHOUT. PATIENT ANXIOUS AT TIMES ABOUT HIS STAY. PATIENT ANXIOUS AND AGITATED THIS EVENING ABOUT HIS FOOD, THAT HIS DOOR HAD BEEN LEFT OPEN AND THAT THE BATHROOM LIGHT HAD BEEN ON. AT CHANGE OF SHIFT, PATIENT REPORTING THAT HE WAS GOING TO LEAVE AMA. NOTIFIED RT AND WORKED WITH NIGHT RN TO WORK OUT A PLAN FOR THE PATIENT TO STAY. PATIENT HAD RECEIVED A VERY UPSETTING PHONE CALL FROM HIS DAUGHTER PRIOR TO ALL OF THIS. PATIENT ABLE TO SPEAK WITH RT HUMBLE ABOUT HIS COPD. SHE RECOMMENDS A HOME O2 EVAL AND STRESSED TO THE PATIENT THE NEED TO FOLLOW UP WITH DR. SILVA. PATIENT ASKS QUESTIONS ABOUT HIS CAR AND IS INFORMED ON WHAT HE NEEDS TO DO FOR HIS COPD. HE REPORTED THAT HE IS STRONGLY CONSIDERING QUITTING SMOKING MARIJUANA (HE REPORTED THAT HE DID NOT TOLERATE EDIBLES WELL TO CONTROL HIS ANXIETY).
[2021-12-24 20:22] LABS: Source, Urine Clean Catch
[2021-12-24 20:25] LABS: Bilirubin, Urine Neg (Neg); Blood, Urine Neg (Neg); Glucose Qualitative, Urine Neg (Neg); Ketones, Urine Neg (Neg); Leukocyte Esterase, Urine Neg (Neg); Nitrite, Urine Neg (Neg); Protein, Urine Neg (Neg); Urobilinogen, Urine NORM (Normal)
[2021-12-24 20:35] LABS: Appearance, Urine Clear (Clear); Color, Urine Pale Yellow (P-Yellow)
--- NOTE | 2021-12-24 22:42 | NUR ---
PT IS HAVING A DIFFUCLT NIGHT EMOTIONALLY. HISS DAUGHTER CALLED AND PT REPORTED SHE YELLED AT HIM BECAUSE SHE IS SCARED SOMETHING WILL HAPPEN TO HIM SHE HAD A NEGATIVE EXPERIENCE WITH HER MOTHER HERE. SHE GOT HIM VERY ANXIOUS ABOUT STAYING THE NIGHT AND CONTINUEING TREATMENT. PT WAS GIVEN 5MG OF MELATONIN AR[place] 1929, BUT REPORTS IT DID NOT HELP. ATIVAN WAS GIVEN AROUND 2229. PT STATES THAT HE WILL MOST LIKELY LEAVE AMA TONIGHT IF THE MEDICATION DOES NOT HELP HIM SLEEP.
--- NOTE | 2021-12-25 06:02 | NUR ---
SHIFT SUMMARY PT IS A MUCH BETTER MOOD AFTER SOME SLEEP AND AN ATIVAN. HE WAS CALM AND COOPERATIVE THIS MORNING AND TOOK ALL HIS MEDICATIONS. NO COMPLAINTS OF PAIN, GREATLY LOOKING FORWARD TO HIS HOME O2 EVAL. CALL LIGHT WITHIN REACH
[2021-12-25 06:21] LABS: BASOPHILS ABSOLUTE AUTO 0.02 K/mm3 (0.00-0.23); BASOPHILS PERCENT AUTO 0 % (0-2); EOSINOPHILS ABSOLUTE AUTO 0.02 K/mm3 (0.00-0.68); EOSINOPHILS PERCENT AUTO 0 % (0-6); Hematocrit 36.6 % (37.0-53.0); Hemoglobin 11.8 g/dL (13.5-17.5); IMMATURE GRAN ABSOLUTE AUTO 0.16 K/mm3 (0.00-0.10); IMMATURE GRAN PERCENT AUTO 1 % (0-1); LYMPHOCYTES ABSOLUTE AUTO 0.48 K/mm3 (0.84-5.20); LYMPHOCYTES PERCENT AUTO 3 % (21-46); MONOCYTES ABSOLUTE AUTO 0.61 K/mm3 (0.16-1.47); MONOCYTES PERCENT AUTO 3 % (4-13); Mean Corpuscular HGB 28.2 pg (26.0-34.0); Mean Corpuscular HGB Conc 32.2 g/dL (31.5-36.5); Mean Corpuscular Volume 88 fL (80-100); Mean Platelet Volume 12.8 fL (9.1-12.4); NEUTROPHILS ABSOLUTE AUTO 16.46 K/mm3 (1.96-9.15); NEUTROPHILS PERCENT AUTO 93 % (41-73); Platelet Count 213 K/mm3 (150-400); RDW Coefficient Variation 14.3 % (11.7-14.2); RDW Standard Deviation 46.3 fL (35.1-46.3); Red Blood Cell Count 4.18 M/mm3 (4.30-5.90); White Blood Cell Count 17.75 K/mm3 (4.00-11.30)
[2021-12-25 06:44] LABS: Bun/Creatinine Ratio 19.8 (12.0-20.0); Creatinine, Blood 1.01 mg/dL (0.60-1.20)
--- NOTE | 2021-12-25 16:29 | NUR ---
Patient is lying in bed and whizzing and pt's RN is attending to him and calling for RT. I provide a calming presence, therapeutic listening and anxiety containment. Pt responds well and shows signs of decreased stress.
--- NOTE | 2021-12-25 18:49 | NUR ---
END OF SHIFT SUMMARY: PATIENT REPORTED THAT HE WAS HAVING A BETTER DAY TODAY. PATIENT CONTINUED TO REQUIRE 2L VIA NC OF O2. PATIENT IS CONSISTENTLY WEARING IT TO THE BATHROOM. PATIENT DID HAVE AN EPISODE OF SEVERE SHORTNESS OF BREATH IN THE ROOM (HE REPORTED COMPLETING MULTIPLE TASKS AT ONE TIME). PATIENT WAS ABLE TO RECOVER BY RESTING ON THE BED AND FOCUSING ON HIS BREATHING. PATIENT VISITED BY RT THROUGHOUT THE DAY TO DISCUSS HIS BREATHING AND HOME CARE. PATIENT IS UNDERSTANDING THAT HE WILL NEED TO STAY LONGER.
--- NOTE | 2021-12-26 05:10 | NUR ---
SWINE NUTRITIONIST SUMMARY HAS BEEN AWAKE AT INTERVALS THIS SHIFT EVEN AFTER CALL PLACED TO MD FOR SLEEP/ANTIANXIETY MED WHICH WAS GIVEN. O2 PER NC AT 2L/MIN. MED TELE SINUS RHYTHM. NO NOTED EDEMA OF BLE/FEET. PT VOICED HIS FEET HAVE INPROVED GREATLY, THAT THEY HAVE NO MORE EDEMA. IV WAS BLEEDING/LEAKING AND WAS REMOVED. WILL ASSESS IF NEEDS ANOTHER HE MAY BE DISCHARGED TODAY. CALL LIGHT IN REACH. NO C/O VOICED
[2021-12-26 05:44] LABS: BASOPHILS ABSOLUTE AUTO 0.01 K/mm3 (0.00-0.23); BASOPHILS PERCENT AUTO 0 % (0-2); EOSINOPHILS PERCENT AUTO 0 % (0-6); Hematocrit 35.7 % (37.0-53.0); Hemoglobin 11.5 g/dL (13.5-17.5); IMMATURE GRAN ABSOLUTE AUTO 0.12 K/mm3 (0.00-0.10); IMMATURE GRAN PERCENT AUTO 1 % (0-1); LYMPHOCYTES ABSOLUTE AUTO 0.52 K/mm3 (0.84-5.20); LYMPHOCYTES PERCENT AUTO 4 % (21-46); MONOCYTES ABSOLUTE AUTO 0.55 K/mm3 (0.16-1.47); MONOCYTES PERCENT AUTO 4 % (4-13); Mean Corpuscular HGB Conc 32.2 g/dL (31.5-36.5); Mean Corpuscular Volume 87 fL (80-100); Mean Platelet Volume 12.8 fL (9.1-12.4); NEUTROPHILS ABSOLUTE AUTO 13.63 K/mm3 (1.96-9.15); NEUTROPHILS PERCENT AUTO 92 % (41-73); Platelet Count 220 K/mm3 (150-400); RDW Coefficient Variation 14.2 % (11.7-14.2); RDW Standard Deviation 45.1 fL (35.1-46.3); Red Blood Cell Count 4.11 M/mm3 (4.30-5.90); White Blood Cell Count 14.83 K/mm3 (4.00-11.30)
[2021-12-26 06:01] LABS: Bun/Creatinine Ratio 21.1 (12.0-20.0); Potassium, Blood 4.2 mmol/L (3.5-5.5)
--- NOTE | 2021-12-26 17:06 | NUR ---
SHIFT SUMMARY PATIENT DENIES PAIN AND NAUSEA. PATIENT REPORTING SHORTNESS OF BREATH, RT CALLED FOR BREATHING TREATMENT. PATIENT IS INDEPENDENT IN ROOM. PATIENT IS ON 2L VIA N/C MAINTAINING SATS ABOVE 92%. PATIENT IS EATING AND DRINKING WELL. HOME O2 EVAL COMPLETED 12/25. PATIENT ANTICIPATED TO DISCHARGE HOME. NEW IV PLACED IN RIGHT FOREARM. PATIENT IS PLEASANT AND COOPERATIVE WITH CARE.
--- NOTE | 2021-12-27 03:55 | NUR ---
BRACE MAKER SUMMARY AWAKE AT HS, TOLERATED MEDS. DISCUSSED FEARS OF DC AND NOT BEING ABLE TO TAKE CARE OF HIMSELF DUE TO SEVERE O2 NEEDS AND EASILY DESATTING WITH LITTLE PHYSICAL EXERTION. O2 PER NC. SATS IN THE 90'S. VSS. PT VOICED HE SPOKE WITH THE MD EARLIER ON DAY SHIFT RE HIS CONCERNS, DAY SHIFT RN STATED PT TO GO HOME ON O2, POSSIBLE ANOTHER EVAL THIS AM. HAS BEEN RESTING QUIETLY WITH FEW INTERRUPTIONS AT THIS TIME. CALL LIGHT IN REACH
[2021-12-27 07:19] LABS: BASOPHILS ABSOLUTE AUTO 0.04 K/mm3 (0.00-0.23); BASOPHILS PERCENT AUTO 0 % (0-2); EOSINOPHILS PERCENT AUTO 0 % (0-6); Hematocrit 38.6 % (37.0-53.0); Hemoglobin 12.5 g/dL (13.5-17.5); IMMATURE GRAN ABSOLUTE AUTO 0.21 K/mm3 (0.00-0.10); IMMATURE GRAN PERCENT AUTO 2 % (0-1); LYMPHOCYTES ABSOLUTE AUTO 0.66 K/mm3 (0.84-5.20); LYMPHOCYTES PERCENT AUTO 5 % (21-46); MONOCYTES ABSOLUTE AUTO 0.74 K/mm3 (0.16-1.47); MONOCYTES PERCENT AUTO 5 % (4-13); Mean Corpuscular HGB 28.1 pg (26.0-34.0); Mean Corpuscular HGB Conc 32.4 g/dL (31.5-36.5); Mean Corpuscular Volume 87 fL (80-100); Mean Platelet Volume 12.7 fL (9.1-12.4); NEUTROPHILS ABSOLUTE AUTO 12.57 K/mm3 (1.96-9.15); NEUTROPHILS PERCENT AUTO 88 % (41-73); Platelet Count 228 K/mm3 (150-400); RDW Coefficient Variation 13.8 % (11.7-14.2); RDW Standard Deviation 43.6 fL (35.1-46.3); Red Blood Cell Count 4.45 M/mm3 (4.30-5.90); White Blood Cell Count 14.22 K/mm3 (4.00-11.30)
[2021-12-27 07:39] LABS: Bun/Creatinine Ratio 23.5 (12.0-20.0); Creatinine, Blood 0.98 mg/dL (0.60-1.20); Potassium, Blood 4.1 mmol/L (3.5-5.5)
--- NOTE | 2021-12-27 17:40 | NUR ---
SHIFT SUMMARY PATIENT DENIES PAIN AND NAUSEA. PATIENT HAS SHORTNESS OF BREATH WITH ACTIVITY. PATIENT REPORTS IT IS GETTING BETTER AND HIS RECOVERY TIME IS DECREASING. PATIENT ON 2L VIA N/C, MAINTAINING SATS ABOVE 90%. PATIENT AMBULATED IN HALLWAY MULTIPLE TIMES. PATIENT DID REPORT SHORTNESS OF BREATH AND WOULD SIT TO RECOVER. PATIENT ABLE TO AMBULATE 200FT. PATIENT SLEPT THIS AFTERNOON. PATIENT IS EATING AND DRINKING WELL. PATIENT IS PLEASANT AND COOPERATIVE WITH CARE.
--- NOTE | 2021-12-28 06:06 | NUR ---
WEDDING COORDINATOR SUMMARY ADMITTED FOR ACUTE RESPIRATORY FAILURE. PT IS A FULL CODE. PLAN FOR POSSIBLE DISCHARGE TODAY. HE HAS BEEN STEADY ON 2LPM BY NC. PT WAS ABLE TO AMBULATE TO THE ELEVATOR AND BACK WELL, KNOWING TO TAKE RESTS IN BETWEEN. LUNG SOUNDS STILL WHEEZY, R/T CHRONIC COPD. PT ABLE TO TAKE A SHOWER THIS MORNING BUT DOES TAKE SOME TIME TO RECOVER RESPIRATORY-GIMENEZ. HE HAS BEEN INDEPENDENT IN THE ROOM WITH NO COMPLAINTS.
[2021-12-28] MEDS ORDERED: BUDESONIDE0.5 MG/2 M INH (13:47)
[2021-12-28] MEDS ORDERED: GUAI600T33 PO (13:47)
[2021-12-28] MEDS ORDERED: CEFD300 PO (13:48)
--- NOTE | 2021-12-28 14:11 | NUR ---
PATIENT WAS DISCHARGED AND ESCORTED VIA WHEELCHAIR TO [facility] FOR TRANSPORT HOME AT 1350. REVIEWED PAPERWORK AND SENT HOME WITH EDUCATIONAL MATERIALS. PATIENT WAS VERBALLY AGITATED WITH NOT QUALIFYING FOR HOME OXYGEN SUPPLEMENTATION. PATIENT INITIALLY ATTEMPTED TO WALK OUT ON HIS OWN DUE TO FRUSTRATION OF WAITING FOR DISCHARGE PAPERS BUT WAS PERSUADED TO BE ESCORTED OUT IN WHEELCHAIR ONCE HE STOPPED TO CATCH HIS BREATH.
== END 2021-12-28 13:50 | disposition home or self-care (01) | DRG 871 ==
LOC: ER 01:18 → ERHOLD 05:01 → MEDS 15:40
PROVIDERS: Emergency Medicine; Family Medicine; ADMIT Family Medicine
DX: A41.9 Sepsis, unspecified organism (principal); J18.9 Pneumonia, unspecified organism; J96.21 Acute and chronic respiratory failure with hypoxia; J45.901 Unspecified asthma with (acute) exacerbation; J44.1 Chronic obstructive pulmonary disease with (acute) exacerbation; J44.0 Chronic obstructive pulmonary disease with (acute) lower respiratory infection; M54.9 Dorsalgia, unspecified; G89.29 Other chronic pain; Z20.822 Contact with and (suspected) exposure to COVID-19; D64.9 Anemia, unspecified; M19.90 Unspecified osteoarthritis, unspecified site; I10 Essential (primary) hypertension; E78.5 Hyperlipidemia, unspecified; M81.0 Age-related osteoporosis without current pathological fracture; I25.10 Atherosclerotic heart disease of native coronary artery without angina pectoris; K21.9 Gastro-esophageal reflux disease without esophagitis; F41.9 Anxiety disorder, unspecified; Z86.16 Personal history of COVID-19; Z98.890 Other specified postprocedural states; Z87.891 Personal history of nicotine dependence; Z88.1 Allergy status to other antibiotic agents; Z88.8 Allergy status to other drugs, medicaments and biological substances; Z79.82 Long term (current) use of aspirin; Z79.899 Other long term (current) drug therapy
CPT/HCPCS: 0202U; 0241U; 36415; 71045; 80048; 80053; 81003; 83605; 83880; 84484; 85025; 87040; 93005; 93010; 93970; 94640; 94664; 94760; 94761; 94762; 96374; 96375; 96376; 98960; 99285-25; A9270; J0456; J0696; J1650; J2405; J2930; J7050

== ENCOUNTER 2022-02-17 04:41 | Emergency (ER) | payer OTHER ==
[~2022-02-17] VITALS: Ht 172.7 cm; Wt 104.3 kg
[~2022-02-17 04:41] MED LIST changes: +BUDESONIDE0.5 MG/2 M INH; +CEFD300 PO; +DILT120 PO
[2022-02-17] MEDS ORDERED: ACET500 PO (08:03)
[2022-02-17] MEDS ORDERED: IBUP400 PO (08:03)
[2022-02-17] MEDS ORDERED: Robaxin750 MG PO (08:03)
== END 2022-02-17 08:10 | disposition home or self-care (01) ==
LOC: ER 04:41
DX: S29.012A Strain of muscle and tendon of back wall of thorax, initial encounter (principal); S39.012A Strain of muscle, fascia and tendon of lower back, initial encounter; X50.0XXA Overexertion from strenuous movement or load, initial encounter; J44.9 Chronic obstructive pulmonary disease, unspecified; I10 Essential (primary) hypertension; I25.10 Atherosclerotic heart disease of native coronary artery without angina pectoris; E78.5 Hyperlipidemia, unspecified; Z88.2 Allergy status to sulfonamides; Z88.1 Allergy status to other antibiotic agents; Z88.8 Allergy status to other drugs, medicaments and biological substances; Z79.899 Other long term (current) drug therapy; Z87.891 Personal history of nicotine dependence
CPT/HCPCS: A9270; J1885

== ENCOUNTER 2022-03-01 05:56 | Observation (INO) | payer OTHER ==
[~2022-03-01] VITALS: Ht 172.7 cm; Wt 107.0 kg
[~2022-03-01 05:56] MED LIST changes: +ACET500 PO; +IBUP400 PO; +Robaxin750 MG PO
[2022-03-01 06:16] LABS: Base Excess Venous 2.7 mmol/L; Bicarbonate Venous 26.8 mmol/L (24.0-30.0); PCO2 Venous 37.2 mmHg (38-42); pH Blood Venous 7.46 (7.34-7.37)
[2022-03-01 06:28] LABS: BASOPHILS ABSOLUTE AUTO 0.21 K/mm3 (0.00-0.23); BASOPHILS PERCENT AUTO 1 % (0-2); EOSINOPHILS ABSOLUTE AUTO 0.89 K/mm3 (0.00-0.68); EOSINOPHILS PERCENT AUTO 6 % (0-6); Hematocrit 37.7 % (37.0-53.0); Hemoglobin 11.8 g/dL (13.5-17.5); IMMATURE GRAN ABSOLUTE AUTO 0.13 K/mm3 (0.00-0.10); IMMATURE GRAN PERCENT AUTO 1 % (0-1); LYMPHOCYTES ABSOLUTE AUTO 2.46 K/mm3 (0.84-5.20); LYMPHOCYTES PERCENT AUTO 17 % (21-46); MONOCYTES ABSOLUTE AUTO 1.76 K/mm3 (0.16-1.47); MONOCYTES PERCENT AUTO 12 % (4-13); Mean Corpuscular HGB 26.3 pg (26.0-34.0); Mean Corpuscular HGB Conc 31.3 g/dL (31.5-36.5); Mean Corpuscular Volume 84 fL (80-100); Mean Platelet Volume 11.9 fL (9.1-12.4); NEUTROPHILS ABSOLUTE AUTO 9.37 K/mm3 (1.96-9.15); NEUTROPHILS PERCENT AUTO 63 % (41-73); Platelet Count 278 K/mm3 (150-400); RDW Coefficient Variation 15.7 % (11.7-14.2); RDW Standard Deviation 46.6 fL (35.1-46.3); Red Blood Cell Count 4.48 M/mm3 (4.30-5.90); White Blood Cell Count 14.82 K/mm3 (4.00-11.30)
[2022-03-01 06:37] LABS: Bun/Creatinine Ratio 20.2 (12.0-20.0); Calcium, Blood 8.7 mg/dL (8.5-10.1); Creatinine, Blood 0.89 mg/dL (0.60-1.20); Potassium, Blood 3.9 mmol/L (3.5-5.5)
[2022-03-01 08:09] LABS: Influenza A, PCR NEGATIVE (NEGATIVE); Influenza B, PCR NEGATIVE (NEGATIVE); Resp Syncytial Virus, PCR NEGATIVE (NEGATIVE); SARS-Cov-2 (COVID-19) PCR, MMC NEGATIVE (NEGATIVE)
--- NOTE | 2022-03-01 11:51 | NUR ---
PT ARRIVED TO UNIT @ THIS TIME, ABLE TO SELF TRANSFER FROM TO BED, SBA 1X. ORIENTED TO ROOM
--- NOTE | 2022-03-01 16:58 | NUR ---
SHIFT SUMMARY PT RESTING COMFORTABLY IN BED SINCE ARRIVAL TO UNIT. 2L O2 VIA NC PRN. INCREASED SOB W/ ACTIVITY. VSS. CALL LIGHT W/ REACH. TOLERATING PO INTAKE WELL @ THIS TIME. OBSERVATION @ THIS TIME.
--- NOTE | 2022-03-02 05:58 | NUR ---
HUMAN CAPITAL MANAGER SUMMARY PT AWAKE OFF/ON T/O THE NIGHT; PT ON 2L O2 NC PRN. PT REMOVE O2 AND STATES DOES NOT WANT TO BE DEPENDENT ON IT. PT TRIPOD AND BEDSIDE SPORATICALLY T/O NIGHT. PT UNHOOKED CONT PULSE OS AND SILENCED MACHING; STATED HE DIDN'T WANT TO BE BOTHERED BY THE ALARM. PT EXPRESSES DESIRE TO GO HOME. PT CALL LIGHT IN REACH.
[2022-03-02] MEDS ORDERED: AZIT500 PO (09:36)
[2022-03-02] MEDS ORDERED: GUAI600T33 PO (09:37)
[2022-03-02] MEDS ORDERED: Methocarbamol500 MG PO (09:38)
--- NOTE | 2022-03-02 10:38 | NUR ---
SHIFT SUMMARY PT A&OX4 DURING DC. PT PROVIDED W/ WRITTEN AND VERBAL INFO, PT VERBALIZED UNDERSTANDING. IV DC'ED. TOLERATING PO INTAKE. RA. TELECOMMUNICATIONS LINESWORKER WC ESCORT OUT TO CURBSIDE FRIEND PROVIDING RIDE.
== END 2022-03-02 10:50 | disposition home or self-care (01) ==
LOC: ER 05:56 → MEDS 05:57
PROVIDERS: Student in an Organized Health Care Education/Training Program; ADMIT Family Medicine
DX: J44.1 Chronic obstructive pulmonary disease with (acute) exacerbation (principal); I10 Essential (primary) hypertension; E78.5 Hyperlipidemia, unspecified; S39.012A Strain of muscle, fascia and tendon of lower back, initial encounter; X58.XXXA Exposure to other specified factors, initial encounter; K21.9 Gastro-esophageal reflux disease without esophagitis; I25.10 Atherosclerotic heart disease of native coronary artery without angina pectoris; Z86.16 Personal history of COVID-19; Z88.5 Allergy status to narcotic agent; Z88.1 Allergy status to other antibiotic agents; Z79.82 Long term (current) use of aspirin; Z79.899 Other long term (current) drug therapy; Z20.822 Contact with and (suspected) exposure to COVID-19
CPT/HCPCS: 0241U; 36415; 71045; 80048; 82803; 83880; 84145; 85025; 93005; 93010; 94640; 94644; 94664; 94762; 96365; 96375; 99285-25; A9270; G0378; J0780; J2405; J2930; J3475; J7512

== ENCOUNTER 2022-10-19 11:20 | Emergency (ER) | payer OTHER ==
[~2022-10-19] VITALS: Ht 172.7 cm; Wt 95.2 kg
[~2022-10-19 11:20] MED LIST changes: +Methocarbamol500 MG PO
[2022-10-19 11:37] LABS: Base Excess Venous 0.6 mmol/L; Bicarbonate Venous 25.3 mmol/L (24.0-30.0); PCO2 Venous 32.5 mmHg (38-42); pH Blood Venous 7.48 (7.34-7.37)
[2022-10-19] MEDS ORDERED: AZIT250 PO (12:54)
[2022-10-19] MEDS ORDERED: DELTASONE20 MG PO (12:54)
== END 2022-10-19 13:26 | disposition home or self-care (01) ==
LOC: ER 11:20
PROVIDERS: Emergency Medicine
DX: J44.1 Chronic obstructive pulmonary disease with (acute) exacerbation (principal); I10 Essential (primary) hypertension; I25.10 Atherosclerotic heart disease of native coronary artery without angina pectoris; Z87.891 Personal history of nicotine dependence
CPT/HCPCS: 71046; 82803; 93005; 93010; 96374; 99284-25; A9270; J0780; J7030

== ENCOUNTER 2023-06-28 05:28 | Inpatient (IN) | payer OTHER ==
[~2023-06-28] VITALS: Ht 172.7 cm; Wt 65.7 kg
[~2023-06-28 05:28] MED LIST changes: +ATOR80 PO
[2023-06-28 05:56] LABS: BASOPHILS ABSOLUTE AUTO 0.16 K/mm3 (0.00-0.23); BASOPHILS PERCENT AUTO 1 % (0-2); EOSINOPHILS ABSOLUTE AUTO 0.09 K/mm3 (0.00-0.68); EOSINOPHILS PERCENT AUTO 0 % (0-6); Hematocrit 46.8 % (37.0-53.0); Hemoglobin 15.4 g/dL (13.5-17.5); IMMATURE GRAN ABSOLUTE AUTO 0.13 K/mm3 (0.00-0.10); IMMATURE GRAN PERCENT AUTO 1 % (0-1); LYMPHOCYTES ABSOLUTE AUTO 2.96 K/mm3 (0.84-5.20); LYMPHOCYTES PERCENT AUTO 14 % (21-46); MONOCYTES ABSOLUTE AUTO 2.14 K/mm3 (0.16-1.47); MONOCYTES PERCENT AUTO 10 % (4-13); Mean Corpuscular HGB 30.3 pg (26.0-34.0); Mean Corpuscular HGB Conc 32.9 g/dL (31.5-36.5); Mean Corpuscular Volume 92 fL (80-100); Mean Platelet Volume 11.4 fL (9.1-12.4); NEUTROPHILS ABSOLUTE AUTO 15.84 K/mm3 (1.96-9.15); NEUTROPHILS PERCENT AUTO 74 % (41-73); Platelet Count 270 K/mm3 (150-400); RDW Standard Deviation 43.5 fL (35.1-46.3); Red Blood Cell Count 5.09 M/mm3 (4.30-5.90); White Blood Cell Count 21.32 K/mm3 (4.00-11.30)
[2023-06-28 06:12] LABS: Base Excess Venous 5.6 mmol/L; Bicarbonate Venous 27.3 mmol/L (24.0-30.0); PCO2 Venous 45.8 mmHg (38-42); pH Blood Venous 7.43 (7.34-7.37)
[2023-06-28 06:14] LABS: Albumin, Blood 3.6 g/dL (3.4-5.0); Albumin/Globulin Ratio 1.1 (0.8-1.8); Bilirubin, Total 0.7 mg/dL (0.1-1.0); Bun/Creatinine Ratio 13.6 (12.0-20.0); Calcium, Blood 9.2 mg/dL (8.5-10.1); Creatinine, Blood 0.96 mg/dL (0.60-1.20); Globulin, Blood 3.4 g/dL (2.2-4.0); Potassium, Blood 3.6 mmol/L (3.5-5.5)
[2023-06-28 06:39] LABS: Influenza A, PCR NEGATIVE (NEGATIVE); Influenza B, PCR NEGATIVE (NEGATIVE); Resp Syncytial Virus, PCR NEGATIVE (NEGATIVE); SARS-Cov-2 (COVID-19) PCR, MMC NEGATIVE (NEGATIVE)
[2023-06-28 12:54] VITALS: BP 171/106
[2023-06-28 12:55] VITALS: BP 171/106
[2023-06-28 17:29] VITALS: BP 152/92
--- NOTE | 2023-06-28 19:48 | NUR ---
SHIFT SUMMARY 12:50 RECEIVED PT TO RM 326 VIA GURNEY FROM ER. PT ABLE TO TX SELF TO BED. ADMITTED FOR SEVERE SEPSIS. IV FLUIDS, ABX, AND STEROIDS GIVEN IN ER. PT TO COMPLETING LAST BOLUS ORDERED. LAB THEN TO FOR LACTIC ACID. DR KING NOTIFIED AFTER CRITICAL RESULTS RECEIVED. ADDITIONAL FLUID BOLUS AND IV ABX ORDERED. REPEAT LACTIC ACID ORDERED; CRITICAL RESULTS CALLED TO DR KING AGAIN. ADDITIONAL ORDERS PLACED; SEE CHART. PT REPORTED AT DINNER TIME, WHILE SITTING UP TO EOB TO EAT, THAT HE DID FEEL MUCH BETTER NOW THAN WHEN HE CAME IN. RT TX'S AND MEDS GIVEN PER EMAR. LUNGS COARSE WITH EXP WHEEZES THRU OUT. PT REMAINS ON 2L O2 WITH BIOX IN LOW 90'S. PT'S BASELINE; RA. UP INDEPENDENTLY TO BTHRM; SBA WITH TUBING NEEDED. NO C/O PAIN. PLEASANT AND CO-OP WITH CARE. DENIED FURTHER NEEDS AT THIS TIME. CALL LT IN REACH.
[2023-06-28 20:44] VITALS: BP 162/96
[2023-06-29] VITALS (7 sets, daily range): BP systolic 115–174; BP diastolic 79–108
[2023-06-29 06:17] LABS: BASOPHILS ABSOLUTE AUTO 0.04 K/mm3 (0.00-0.23); BASOPHILS PERCENT AUTO 0 % (0-2); EOSINOPHILS PERCENT AUTO 0 % (0-6); Hematocrit 45.2 % (37.0-53.0); IMMATURE GRAN ABSOLUTE AUTO 0.15 K/mm3 (0.00-0.10); IMMATURE GRAN PERCENT AUTO 1 % (0-1); LYMPHOCYTES ABSOLUTE AUTO 0.73 K/mm3 (0.84-5.20); LYMPHOCYTES PERCENT AUTO 4 % (21-46); MONOCYTES ABSOLUTE AUTO 0.84 K/mm3 (0.16-1.47); MONOCYTES PERCENT AUTO 4 % (4-13); Mean Corpuscular HGB 30.3 pg (26.0-34.0); Mean Corpuscular HGB Conc 33.2 g/dL (31.5-36.5); Mean Corpuscular Volume 91 fL (80-100); NEUTROPHILS PERCENT AUTO 92 % (41-73); Platelet Count 231 K/mm3 (150-400); RDW Coefficient Variation 12.9 % (11.7-14.2); RDW Standard Deviation 42.7 fL (35.1-46.3); Red Blood Cell Count 4.95 M/mm3 (4.30-5.90); White Blood Cell Count 20.86 K/mm3 (4.00-11.30)
[2023-06-29 06:42] LABS: Albumin, Blood 3.2 g/dL (3.4-5.0); Albumin/Globulin Ratio 0.9 (0.8-1.8); Bilirubin, Total 0.6 mg/dL (0.1-1.0); Bun/Creatinine Ratio 17.7 (12.0-20.0); Calcium, Blood 9.1 mg/dL (8.5-10.1); Creatinine, Blood 0.73 mg/dL (0.60-1.20); Globulin, Blood 3.6 g/dL (2.2-4.0); Potassium, Blood 4.2 mmol/L (3.5-5.5); Total Protein, Blood 6.8 g/dL (6.4-8.2)
--- NOTE | 2023-06-29 07:41 | NUR ---
SHIFT SUMMARY AMNA IS ALERT AND FULLY ORIENTED AT ASSESSMENT. LACTIC HAS DROPPED TO 2.6. PT AMBULATING WELL TO BATHROOM W/ FWW. PT ENDORSES SOB, BUT STATES THAT IT IS CHRONIC. B/P STILL ELEVATED, POSSIBLY FROM DAYSHIFT FLUID BOLUSING. PER REPORT IS AWARE... AROUND 0415 I WAS ALERTED THAT THE PT HAD BEGAN EXPERIENCING CHEST PAIN AROUND 0200, HE DID NOT NOTIFY ANYONE AND INSTEAD FOUND HIS HOME USE NITRO AND SELF ADMINISTERED A DOSE. HE SAID HE HAD RELIEF AFTER FOR A SHORT WHILE AND THAT THE CP WAS BACK AND WORSE. BP WAS 170S OVER 100S DR BURGESS NOTIFIED, CHARGE NURSES NOTIFIED. ORDERS RECIEVED FOR EKG, TELE, APRESOLINE, AND MORPHINE, NONE OF THE CHANGES HAD A LASTING EFFECT, TROPONIN WAS DONE AND RESULT WAS 16. REPORT WAS GIVEN TO
--- NOTE | 2023-06-29 17:50 | NUR ---
SHIFT SUMMARY PT AOX4, INDEPENDENT IN THE ROOM WITH THE URINAL. AT THE START OF THE SHIFT, HE WAS C/O CP THAT PAPER BUNDLER WAS TRYING TO ADDRESS. EKG CAME BACK NSR AND TROP 16. DR. ELIAS ARRIVED AND ASSESSED THE PT, ORDERING A MEDICATION TO HELP WITH ANXIETY AT NIGHT. HE HAS HAD NO C/O CP OR PRESSURE SINCE THIS AM. HIS VS HAVE ALSO BEEN STABLE. HE IS PLEASANT AND COOPERATIVE WITH CARE. MEDICATED FOR BACK PAIN PER THE EMAR. CALL LIGHT WITHIN REACH, BED IN THE LOWEST POSITION. WILL REPORT TO ONCOMING NURSE.
[2023-06-30 05:10] VITALS: BP 143/91
[2023-06-30 05:21] LABS: BASOPHILS ABSOLUTE AUTO 0.03 K/mm3 (0.00-0.23); BASOPHILS PERCENT AUTO 0 % (0-2); EOSINOPHILS PERCENT AUTO 0 % (0-6); Hematocrit 43.2 % (37.0-53.0); Hemoglobin 14.3 g/dL (13.5-17.5); IMMATURE GRAN ABSOLUTE AUTO 0.11 K/mm3 (0.00-0.10); IMMATURE GRAN PERCENT AUTO 1 % (0-1); LYMPHOCYTES ABSOLUTE AUTO 1.01 K/mm3 (0.84-5.20); LYMPHOCYTES PERCENT AUTO 5 % (21-46); MONOCYTES PERCENT AUTO 8 % (4-13); Mean Corpuscular HGB 30.3 pg (26.0-34.0); Mean Corpuscular HGB Conc 33.1 g/dL (31.5-36.5); Mean Corpuscular Volume 92 fL (80-100); Mean Platelet Volume 11.9 fL (9.1-12.4); NEUTROPHILS ABSOLUTE AUTO 17.04 K/mm3 (1.96-9.15); NEUTROPHILS PERCENT AUTO 87 % (41-73); Platelet Count 241 K/mm3 (150-400); RDW Standard Deviation 43.8 fL (35.1-46.3); Red Blood Cell Count 4.72 M/mm3 (4.30-5.90); White Blood Cell Count 19.69 K/mm3 (4.00-11.30)
[2023-06-30 05:38] LABS: Albumin, Blood 2.9 g/dL (3.4-5.0); Anion Gap 2 mmol/L (6-16); Blood Urea Nitrogen 23 mg/dL (8-24); Bun/Creatinine Ratio 23.3 (12.0-20.0); CO2, Blood 27 mmol/L (21-32); Chloride, Blood 113 mmol/L (98-108); Creatinine, Blood 0.99 mg/dL (0.60-1.20); Glomerular Filtration Rate 82 (60-); Glucose, Blood 103 mg/dL (70-99); Magnesium, Blood 2.6 mg/dL (1.6-2.4); Phosphorus, Blood 3.4 mg/dL (2.5-4.9); Potassium, Blood 4.4 mmol/L (3.5-5.5); Sodium, Blood 142 mmol/L (136-145)
--- NOTE | 2023-06-30 05:58 | NUR ---
SHIFT SUMMARY: PT IS ADMITTED FOR SEPSIS WITH ACUTE ORGAN DYSFUNCTION AND IS A LIMITED CODE. IS ALERT AND ABLE TO MAKE NEEDS KNOWN. ADLs HAVE BEEN 1P MOSTLY STANDBY THROUGHOUT SHIFT. DENIES PAIN OR DISCOMFORT WHEN ASKED.
[2023-06-30 07:33] VITALS: BP 159/96
--- NOTE | 2023-06-30 12:38 | NUR ---
DURING THE ASSESSMENT THIS MORNING, PT VERBALIZED PAIN BUT STATED THAT HE WAS HESITANT TO TAKE THE MORPHINE PER MAR D/T FEELING SOMNOLENT. PT STATES THAT HE USES [facility] AT HOME FOR PAIN MANAGEMENT. CALLED AND SPOKE WITH CLINICIAN WHO STATES ORDERS WILL BE PLACED, PLEASE SEE MAR.
[2023-06-30 15:05] VITALS: BP 114/71
--- NOTE | 2023-06-30 19:18 | NUR ---
SHIFT SUMMARY: AMNA IS A&OX4. VSS, MAINTAINING SATS ON 2L VIA NC. PT DID HAVE AN EPISODE OF SOB THIS AM WHICH IMPROVED AFTER BREATHING TREATMENTS WERE ADMINISTERED BY RT. PT DID PERFORM PURSED LIP BREATHING ON HIS OWN AND DEMONSTRATED APPROPRIATE CALMING TECHINQUES. HE IS TOLERATING PO INTAKE WELL, IS USING THE URINAL WITHOUT DIFFICULTY, AND REPORTS NOT HAVING A BOWEL MOVEMENT TODAY. PT STATES THAT HE USUALLY HAS A BOWEL MOVEMENT EVERY MORNING. DISCUSSED BOWEL CARE WITH PT, PT STATES HE DOES NOT FEEL HE NEEDS ANY BOWEL CARE MEDICATIONS AT THIS TIME, BUT WILL CONTACT RN IF HE DOES. PT IS A ONE-PERSON ASSIST TO THE BATHROOM. PT DOES REPORT INCREASED SOB ON EXERTION. HE IS LYING IN BED WITH THE CALL LIGHT IN REACH. REPORT WAS GIVEN TO ELEMENTARY SCHOOL SCIENCE TEACHER RN.
[2023-06-30 20:05] VITALS: BP 138/97
--- NOTE | 2023-07-01 05:00 | NUR ---
ENROLLMENT MANAGER SUMMARY VSS. AFEBRILE. CONTINUE TO RECEIVE ANTIBIOTICS FOR SEPSIS. A/O X 4. COOPERATIVE WITH TREATMENT. O2 AT 2L/MIN PER NC AND SATS OVER 90%. PAIN MEDS ADMIN FOR CHRONIC BACK AND NECK PAIN - SEE MAR FOR DETAILS. HAS BEEN RESTING QUIETLY WITH FEW INTERUPTIONS. CALL LIGHT IN ERACH. RAILS UP X 2 FOR AFETY. WILL CONTINUE TO MONITOR
[2023-07-01 05:46] VITALS: BP 145/96
[2023-07-01 06:09] LABS: BASOPHILS ABSOLUTE AUTO 0.02 K/mm3 (0.00-0.23); BASOPHILS PERCENT AUTO 0 % (0-2); EOSINOPHILS ABSOLUTE AUTO 0.01 K/mm3 (0.00-0.68); EOSINOPHILS PERCENT AUTO 0 % (0-6); Hematocrit 41.9 % (37.0-53.0); Hemoglobin 13.8 g/dL (13.5-17.5); IMMATURE GRAN ABSOLUTE AUTO 0.06 K/mm3 (0.00-0.10); IMMATURE GRAN PERCENT AUTO 1 % (0-1); LYMPHOCYTES ABSOLUTE AUTO 1.73 K/mm3 (0.84-5.20); LYMPHOCYTES PERCENT AUTO 15 % (21-46); MONOCYTES ABSOLUTE AUTO 1.19 K/mm3 (0.16-1.47); MONOCYTES PERCENT AUTO 10 % (4-13); Mean Corpuscular HGB 30.4 pg (26.0-34.0); Mean Corpuscular HGB Conc 32.9 g/dL (31.5-36.5); Mean Corpuscular Volume 92 fL (80-100); Mean Platelet Volume 12.5 fL (9.1-12.4); NEUTROPHILS ABSOLUTE AUTO 8.47 K/mm3 (1.96-9.15); NEUTROPHILS PERCENT AUTO 74 % (41-73); Platelet Count 221 K/mm3 (150-400); RDW Coefficient Variation 12.9 % (11.7-14.2); RDW Standard Deviation 43.8 fL (35.1-46.3); Red Blood Cell Count 4.54 M/mm3 (4.30-5.90); White Blood Cell Count 11.48 K/mm3 (4.00-11.30)
[2023-07-01 06:34] LABS: Albumin, Blood 2.9 g/dL (3.4-5.0); Anion Gap 2 mmol/L (6-16); Blood Urea Nitrogen 23 mg/dL (8-24); Bun/Creatinine Ratio 23.2 (12.0-20.0); CO2, Blood 29 mmol/L (21-32); Calcium, Blood 8.9 mg/dL (8.5-10.1); Chloride, Blood 110 mmol/L (98-108); Creatinine, Blood 0.99 mg/dL (0.60-1.20); Glomerular Filtration Rate 82 (60-); Glucose, Blood 79 mg/dL (70-99); Phosphorus, Blood 3.2 mg/dL (2.5-4.9); Sodium, Blood 141 mmol/L (136-145)
[2023-07-01 07:50] VITALS: BP 156/103
[2023-07-01 15:16] VITALS: BP 132/88
--- NOTE | 2023-07-01 16:47 | NUR ---
SHIFT SUMMARY PT RESTING QUIETLY AT START OF SHIFT, HAVING DIFFICULTY WAKING UP FROM TAKING REMERON FOR SLEEP. PT WOKE FOR BREAKFAST, BUT THEN WENT BACK TO SLEEP. DR ELIAS IN TO SEE PT AND DISCUSS PLAN OF CARE. PT DECLINED TO TAKE REMERON FOR SLEEP DIRECTED WANTING TO STOP D/T DROWSINESS. PT UP INDEPENDENTLY TO BTHRM NEEDED. VISITORS TO TODAY FOR A WHILE. IV SITE STARTED LEAKING AT THE END OF THIS AFTERNOON DOSE. DR ELIAS UPDATED ON IV STATUS. PO ABX ORDERED NOW. NO IV ACCESS NEEDED AT THIS TIME. PT IMPROVING TODAY. RT PLACED PT ON RA EARLIER TODAY AND HAS MAINTAINED BIOX WNL'S TO PRESENT. MEDICATED FOR C/O BACK PAIN X1 THIS SHIFT. BOWEL CARE STARTED PER EMAR. PT DENIED FURTHER NEEDS AT THIS TIME. CALL LT IN REACH.
[2023-07-01 19:50] VITALS: BP 129/91
[2023-07-02 04:33] VITALS: BP 148/86
--- NOTE | 2023-07-02 04:58 | NUR ---
SHIFT SUMMERY, PT RESTING ON AND OFF DURING NIGHT SLEEPING AT TIMES THEN AWAKE HAVING A SNACK. PT HAS A WALK IN THE HALLS AT START OF SHIFT. CALL LIGHT IN REACH.
[2023-07-02 05:43] LABS: BASOPHILS ABSOLUTE AUTO 0.03 K/mm3 (0.00-0.23); BASOPHILS PERCENT AUTO 0 % (0-2); EOSINOPHILS ABSOLUTE AUTO 0.03 K/mm3 (0.00-0.68); EOSINOPHILS PERCENT AUTO 0 % (0-6); Hematocrit 42.7 % (37.0-53.0); Hemoglobin 13.8 g/dL (13.5-17.5); IMMATURE GRAN ABSOLUTE AUTO 0.11 K/mm3 (0.00-0.10); IMMATURE GRAN PERCENT AUTO 1 % (0-1); LYMPHOCYTES ABSOLUTE AUTO 2.19 K/mm3 (0.84-5.20); LYMPHOCYTES PERCENT AUTO 18 % (21-46); MONOCYTES ABSOLUTE AUTO 1.48 K/mm3 (0.16-1.47); MONOCYTES PERCENT AUTO 12 % (4-13); Mean Corpuscular HGB 29.9 pg (26.0-34.0); Mean Corpuscular HGB Conc 32.3 g/dL (31.5-36.5); Mean Corpuscular Volume 93 fL (80-100); Mean Platelet Volume 11.9 fL (9.1-12.4); NEUTROPHILS PERCENT AUTO 68 % (41-73); Platelet Count 230 K/mm3 (150-400); RDW Coefficient Variation 12.6 % (11.7-14.2); RDW Standard Deviation 43.1 fL (35.1-46.3); Red Blood Cell Count 4.61 M/mm3 (4.30-5.90); White Blood Cell Count 11.94 K/mm3 (4.00-11.30)
[2023-07-02 06:14] LABS: Albumin, Blood 2.9 g/dL (3.4-5.0); Anion Gap 7 mmol/L (6-16); Blood Urea Nitrogen 20 mg/dL (8-24); Bun/Creatinine Ratio 20.7 (12.0-20.0); CO2, Blood 25 mmol/L (21-32); Calcium, Blood 8.6 mg/dL (8.5-10.1); Chloride, Blood 107 mmol/L (98-108); Creatinine, Blood 0.97 mg/dL (0.60-1.20); Glomerular Filtration Rate 85 (60-); Glucose, Blood 92 mg/dL (70-99); Phosphorus, Blood 2.5 mg/dL (2.5-4.9); Potassium, Blood 3.6 mmol/L (3.5-5.5); Sodium, Blood 139 mmol/L (136-145)
[2023-07-02 07:21] VITALS: BP 134/100
[2023-07-02] MEDS ORDERED: AMOCLA875 PO (11:52)
[2023-07-02] MEDS ORDERED: MIRALAX17 GM PO (11:53)
[2023-07-02] MEDS ORDERED: AZIT500 PO (11:53)
[2023-07-02] MEDS ORDERED: PRED20 PO (11:56)
--- NOTE | 2023-07-02 12:05 | NUR ---
PATIENT D/C'D TO HOME. RX MEDICATIONS FAXED TO [facility]. DC INSTRUCTIONS AND EDUCATION DISUCUSSSED WITH PATIENT AND COPY PROVIDED. PATIENT DENIES ANY FURTHER QUESTIONS OR CONCERNS.
--- NOTE | 2023-07-04 10:07 | NUR ---
MIRTAZAPINE PT CALLED, REQUESTING MIRTAZAPINE AND REPORTED DOCTOR WAS TO SEND A PRESCRIPTION TO HIS PHARMACY. THIS RN TALKED WITH DR. ELIAS, WHO DISCHARGED THE PATIENT ON 07/02/23. DR. ELIAS GAVE A VERBAL ORDER FOR THE MIRTAZAPINE: MIRTAZAPINE 15 MG PO WITH INSTRUCTIONS TO TAKE 1 TAB EVERY EVENING AT BEDTIME. DISPENSE 30 TABS WITH NO REFILLS. THIS RN CALLED THE PRESCRIPTION INTO [facility].
== END 2023-07-02 12:03 | disposition home or self-care (01) | DRG 871 ==
LOC: ER 05:28 → MEDS 10:06
PROVIDERS: Emergency Medicine; Family Medicine; ADMIT Internal Medicine
DX: A41.9 Sepsis, unspecified organism (principal); J15.9 Unspecified bacterial pneumonia; J96.01 Acute respiratory failure with hypoxia; J44.1 Chronic obstructive pulmonary disease with (acute) exacerbation; J44.0 Chronic obstructive pulmonary disease with (acute) lower respiratory infection; E87.20 Acidosis, unspecified; R65.20 Severe sepsis without septic shock; M54.9 Dorsalgia, unspecified; G89.29 Other chronic pain; M19.90 Unspecified osteoarthritis, unspecified site; I10 Essential (primary) hypertension; E78.5 Hyperlipidemia, unspecified; M81.0 Age-related osteoporosis without current pathological fracture; I25.10 Atherosclerotic heart disease of native coronary artery without angina pectoris; Z86.16 Personal history of COVID-19; K21.9 Gastro-esophageal reflux disease without esophagitis; F43.10 Post-traumatic stress disorder, unspecified; F17.210 Nicotine dependence, cigarettes, uncomplicated; Z85.51 Personal history of malignant neoplasm of bladder; Z11.52 Encounter for screening for COVID-19; Z88.2 Allergy status to sulfonamides; Z88.1 Allergy status to other antibiotic agents; Z88.8 Allergy status to other drugs, medicaments and biological substances; Z90.79 Acquired absence of other genital organ(s); Z98.890 Other specified postprocedural states; Z79.82 Long term (current) use of aspirin; Z79.899 Other long term (current) drug therapy
CPT/HCPCS: 0241U; 36415; 71045; 80053; 80069; 82803; 83605; 83735; 83880; 84145; 84484; 85025; 87040; 87070; 87205; 93005; 93010; 93306; 94640; 94644; 94664; 94760; 96361; 96365; 96367; 96375; 96376; 99285-25; A9270; J0360; J0456; J0692; J1650; J1940; J2270; J2920; J2930; J3475; J7030; J7040; J7050; J7512

== ENCOUNTER 2023-08-10 05:32 | Inpatient (IN) | payer OTHER ==
[~2023-08-10] VITALS: Ht 172.7 cm; Wt 88.7 kg
[~2023-08-10 05:32] MED LIST changes: +AMOCLA875 PO; +MIRALAX17 GM PO
[2023-08-10 06:00] LABS: BASOPHILS PERCENT AUTO 1 % (0-2); EOSINOPHILS ABSOLUTE AUTO 0.26 K/mm3 (0.00-0.68); EOSINOPHILS PERCENT AUTO 3 % (0-6); Hematocrit 51.2 % (37.0-53.0); Hemoglobin 16.9 g/dL (13.5-17.5); IMMATURE GRAN ABSOLUTE AUTO 0.07 K/mm3 (0.00-0.10); IMMATURE GRAN PERCENT AUTO 1 % (0-1); LYMPHOCYTES ABSOLUTE AUTO 2.15 K/mm3 (0.84-5.20); LYMPHOCYTES PERCENT AUTO 27 % (21-46); MONOCYTES ABSOLUTE AUTO 0.89 K/mm3 (0.16-1.47); MONOCYTES PERCENT AUTO 11 % (4-13); Mean Corpuscular HGB 29.4 pg (26.0-34.0); Mean Corpuscular Volume 89 fL (80-100); Mean Platelet Volume 11.4 fL (9.1-12.4); NEUTROPHILS ABSOLUTE AUTO 4.55 K/mm3 (1.96-9.15); NEUTROPHILS PERCENT AUTO 57 % (41-73); Platelet Count 233 K/mm3 (150-400); RDW Standard Deviation 45.4 fL (35.1-46.3); Red Blood Cell Count 5.74 M/mm3 (4.30-5.90); White Blood Cell Count 8.02 K/mm3 (4.00-11.30)
[2023-08-10 06:23] LABS: Albumin, Blood 3.4 g/dL (3.4-5.0); Albumin/Globulin Ratio 0.9 (0.8-1.8); Bilirubin, Total 0.6 mg/dL (0.1-1.0); Bun/Creatinine Ratio 11.7 (12.0-20.0); Calcium, Blood 9.5 mg/dL (8.5-10.1); Creatinine, Blood 0.94 mg/dL (0.60-1.20); Globulin, Blood 3.9 g/dL (2.2-4.0); Potassium, Blood 3.7 mmol/L (3.5-5.5); Total Protein, Blood 7.3 g/dL (6.4-8.2)
[2023-08-10 08:49] LABS: Adenovirus Not Detected (NOT DETECT); Bordetella pertussis Not Detected (NOT DETECT); Chlamydophila pneumoniae Not Detected (NOT DETECT); Coronavirus 229E Not Detected (NOT DETECT); Coronavirus HKU1 Not Detected (NOT DETECT); Coronavirus NL63 Not Detected (NOT DETECT); Coronavirus OC43 Not Detected (NOT DETECT); Human Metapneumovirus Not Detected (NOT DETECT); Human Rhinovirus/Enterovirus Not Detected (NOT DETECT); Influenza A/2009-H1 Not Detected (NOT DETECT); Influenza A/H1 Not Detected (NOT DETECT); Influenza A/H3 Not Detected (NOT DETECT); Influenza B Not Detected (NOT DETECT); Mycoplasma pneumoniae Not Detected (NOT DETECT); Parainfluenza Virus 1 Not Detected (NOT DETECT); Parainfluenza Virus 2 Not Detected (NOT DETECT); Parainfluenza Virus 3 Not Detected (NOT DETECT); Parainfluenza Virus 4 Not Detected (NOT DETECT); Respiratory Syncytial Virus Not Detected (NOT DETECT); SARS-Cov-2 (COVID-19), BioFire Detected (NOT DETECT)
[2023-08-10] MEDS ORDERED: TIZANIDINE HCL2 M4 PO (14:36)
[2023-08-10] MEDS ORDERED: MIRT30 PO (14:36)
[2023-08-10 15:15] VITALS: BP 170/112
[2023-08-10 16:14] VITALS: BP 161/99
--- NOTE | 2023-08-10 16:42 | NUR ---
SHIFT SUMMARY PATIENT ARRIVED FROM ER AT 1310. PATIENT ORIENTED TO ROOM AND CALL LIGHT. PATIENT REPORTS CHRONIC BACK PAIN, PATIENT DENIES NAUSEA AND SHORTNESS OF BREATH AT REST. PATIENT REPORTS SHORTNESS OF BREATH WITH ACTIVITY. PATIENT ON ROOM AIR, MAINTAINING SATS AT 94%. PATIENT SBP ELEVATED, PATIENT REPORTS NOT TAKING HOME MEDICATIONS TODAY. DR. ELIAS NOTIFIED, IV HYDRALAZINE GIVEN. PATIENT ALSO HAS SLIGHT FEVER OF 100.2, TYLENOL GIVEN. PATIENT IS COVID + WITH PCR TODAY, 08/10/23. ISOLATION PRECAUTIONS MAINTAINED. PATIENT EATING AND DRINKING WELL. PATIENT IS A SBA TO THE BATHROOM. CALL LIGHT WITHIN REACH. PATIENT IS PLEASANT AND COOPERATIVE WITH CARE. IGNITION RISK COMPLETED. ADMISSION COMPLETED WELL.
[2023-08-10] MEDS ORDERED: PRED20 PO (16:54)
[2023-08-10 17:31] VITALS: BP 180/96
[2023-08-10 19:34] LABS: Base Excess Venous -3.3 mmol/L; Bicarbonate Venous 23.2 mmol/L (24.0-30.0); PCO2 Venous 24.8 mmHg (38-42); pH Blood Venous 7.51 (7.34-7.37)
--- NOTE | 2023-08-10 19:35 | NUR ---
PHYSICIAN CONTACT PATIENT REPORTING CHEST PAIN THAT RADIATES TO LEFT ARM. SBP HAS DECREASED SINCE IV HYDRALAZINE GIVEN. HR IS NOW SUSTAINING 130'S. DR NOTIFIED, NEW ORDERS FOR STAT EKG, VBG, TROP AND REPEAT TROP IN 2HRS. STAT ORDERS COMPLETED. NIGHTSHIFT TO CONTACT DOCTOR WITH RESULTS. NEW IV PLACED WELL DUE TO PAIN AT OLD IV SITE. PATIENT REPORTS CHEST PAIN DIMINISHING. PATIENT NOT ON TELE, DR AWARE.
[2023-08-10 20:13] VITALS: BP 160/94
--- NOTE | 2023-08-10 22:45 | NUR ---
MARTIN (HVAC SPECIALIST) NOTIFIED OF CONTINUED R.RIB/CP, NO LONGER RADIATING IN PRESENCE OF SUSTAINING HYPERTENSION AND TACHYCARDIA AND SOB AT REST MADE WORSE W/MINIMAL EXERTION. RECENT EKG, TROPONIN AND VBG RESULTS RELAYED. NEW ORDERS RECIEVED FOR STAT PE STUDY, TELEMETRY AND HE RX'D NEW MEDS: TYLENOL 500MG PO X1, ATIVAN 0.5-1MG IV Q4PRN, TORADOL 15MG IV X1, CARDIZEM-SR 6OMG PO X1, LABETOLOL 10MG IV PRN (FOR SBP>180) AND HE DC'D PRN HYDRALAZINE. TYLENOL, TORADOL AND CARDIZEM RECIEVED, CT WAS COMPLETED AND TELE COMMENCED. PLAN TO MONITOR PAIN AND VITALS CLOSELY FOR CHANGES AND/OR WORSENING. WILL GIVE ADDITIONAL PRN MEDS REQUIRED.
--- NOTE | 2023-08-11 01:43 | NUR ---
PT REPORTS RIB PAIN IS IMPROVED. HE CONT'S SOB AT REST/EXERTION BUT SPO2 WNL ON RA AND LS ARE CLEAR/DIMINISHED. HE REMAINS S.TACH ON TELE BUT HR SLIGHTLY IMPROVED TO 103 BPM. PT REQUESTS ATIVAN D/T DIFFICULTY SLEEPING FROM IV STEROIDS, MED RECIEVED PER EMAR, AWAITING EFFECT. UPDATED W/CT RESULTS RELAYED, NO NEW ORDERS RECIEVED.
[2023-08-11 04:40] VITALS: BP 145/89
[2023-08-11 04:59] LABS: BASOPHILS ABSOLUTE AUTO 0.01 K/mm3 (0.00-0.23); BASOPHILS PERCENT AUTO 0 % (0-2); EOSINOPHILS PERCENT AUTO 0 % (0-6); Hematocrit 42.8 % (37.0-53.0); Hemoglobin 14.2 g/dL (13.5-17.5); IMMATURE GRAN ABSOLUTE AUTO 0.04 K/mm3 (0.00-0.10); IMMATURE GRAN PERCENT AUTO 1 % (0-1); LYMPHOCYTES ABSOLUTE AUTO 0.76 K/mm3 (0.84-5.20); LYMPHOCYTES PERCENT AUTO 11 % (21-46); MONOCYTES ABSOLUTE AUTO 0.32 K/mm3 (0.16-1.47); MONOCYTES PERCENT AUTO 5 % (4-13); Mean Corpuscular HGB 29.2 pg (26.0-34.0); Mean Corpuscular HGB Conc 33.2 g/dL (31.5-36.5); Mean Corpuscular Volume 88 fL (80-100); Mean Platelet Volume 11.9 fL (9.1-12.4); NEUTROPHILS ABSOLUTE AUTO 6.02 K/mm3 (1.96-9.15); NEUTROPHILS PERCENT AUTO 84 % (41-73); Platelet Count 229 K/mm3 (150-400); RDW Coefficient Variation 13.9 % (11.7-14.2); RDW Standard Deviation 44.4 fL (35.1-46.3); Red Blood Cell Count 4.86 M/mm3 (4.30-5.90); White Blood Cell Count 7.15 K/mm3 (4.00-11.30)
[2023-08-11 05:15] LABS: Albumin, Blood 2.9 g/dL (3.4-5.0); Albumin/Globulin Ratio 0.9 (0.8-1.8); Bilirubin, Total 0.4 mg/dL (0.1-1.0); Bun/Creatinine Ratio 14.7 (12.0-20.0); Calcium, Blood 8.7 mg/dL (8.5-10.1); Creatinine, Blood 0.89 mg/dL (0.60-1.20); Globulin, Blood 3.4 g/dL (2.2-4.0); Phosphorus, Blood 2.9 mg/dL (2.5-4.9); Potassium, Blood 3.9 mmol/L (3.5-5.5); Total Protein, Blood 6.3 g/dL (6.4-8.2)
--- NOTE | 2023-08-11 06:49 | NUR ---
SUMMARY: PT A/OX4, CALLS APPROPRIATELY TO SPECIFY NEEDS AND IS PLEASANT AND COOPERATIVE W/CARE. HE REMAINS IN COVID ISOLATION AND CONT'S TO BE SOB AT REST AND WORSE W/EXERTION. INITIALLY HE C/O OF R.SIDED RIB AND CP THAT'S SEEMING RESOLVED SINCE RECEIVING X1 IV TORADOL AND X1 PO TYLENOL. BP AND HR HAVE ALSO IMPROVED SINCE RECEIVING X1 CARDIZEM-SR. HE REMAINS ON TELE IN NSR/S.TACH AT 90-100'S BPM ( DOWN FROM 120'S-130'S BPM). PT ALSO REQUESTED ATIVAN PRN FOR DIFFICULTY SLEEPING R/T IV STEROIDS FOR GOOD EFFECT. PE STUDY COMPLETED W/RESULTS RELAYED TO MD. SEE IMAGING FOR DETAILS. NO ACUTE CHANGE, VITALS IMPROVING AND WCTM/REPORT TO DAY RN.
[2023-08-11 08:50] VITALS: BP 161/98
--- NOTE | 2023-08-11 17:03 | NUR ---
PT IS A/OX4, PLEASANT AND COOPERATIVE. UP IND TO THE BATHROOM. PT IS FLUSHED IN COLOR AND SHAKEY. PT DENIES ANY PAIN AT THIS TIME. PT APPEARS TO BE BREATHING EASILY AT REST WITHOUT OXYGEN , HOWEVER, HE REPORTS SOB WITH ACTIVITY. CALL LIGHT IN REACH
[2023-08-11 20:22] VITALS: BP 130/75
[2023-08-12 04:34] VITALS: BP 135/91
[2023-08-12 05:21] LABS: BASOPHILS ABSOLUTE AUTO 0.02 K/mm3 (0.00-0.23); BASOPHILS PERCENT AUTO 0 % (0-2); EOSINOPHILS PERCENT AUTO 0 % (0-6); Hematocrit 40.4 % (37.0-53.0); Hemoglobin 13.3 g/dL (13.5-17.5); IMMATURE GRAN ABSOLUTE AUTO 0.09 K/mm3 (0.00-0.10); IMMATURE GRAN PERCENT AUTO 1 % (0-1); LYMPHOCYTES ABSOLUTE AUTO 1.04 K/mm3 (0.84-5.20); LYMPHOCYTES PERCENT AUTO 9 % (21-46); MONOCYTES ABSOLUTE AUTO 0.59 K/mm3 (0.16-1.47); MONOCYTES PERCENT AUTO 5 % (4-13); Mean Corpuscular HGB 29.4 pg (26.0-34.0); Mean Corpuscular HGB Conc 32.9 g/dL (31.5-36.5); Mean Corpuscular Volume 89 fL (80-100); NEUTROPHILS ABSOLUTE AUTO 10.01 K/mm3 (1.96-9.15); NEUTROPHILS PERCENT AUTO 85 % (41-73); Platelet Count 248 K/mm3 (150-400); RDW Standard Deviation 45.4 fL (35.1-46.3); Red Blood Cell Count 4.52 M/mm3 (4.30-5.90); White Blood Cell Count 11.75 K/mm3 (4.00-11.30)
--- NOTE | 2023-08-12 06:46 | NUR ---
SHIFT SUMMARY NOC PT A/O X 4. PLEASANT AND COOPERATIVE WITH CARE. NO ACUTE CHANGES TO REPORT. PT REQUESTED ATIVAN FOR ANXIETY/SLEEP AND GIVEN 2 DOSES. ON TELE RUNNING SINUS TACHYCARDIA IN LOW 100'S. PT POSSIBLE DISCHARGE TODAY IF MEDICALLY STABLE. PT CURRENTLY RESTING WITH BED IN LOWEST POSITION, AND CALL LIGHT WITHIN REACH.
[2023-08-12 06:51] LABS: Anion Gap 7 mmol/L (6-16); Blood Urea Nitrogen 19 mg/dL (8-24); Bun/Creatinine Ratio 19.7 (12.0-20.0); CO2, Blood 23 mmol/L (21-32); Calcium, Blood 9.3 mg/dL (8.5-10.1); Chloride, Blood 108 mmol/L (98-108); Creatinine, Blood 0.97 mg/dL (0.60-1.20); Glomerular Filtration Rate 85 (60-); Glucose, Blood 151 mg/dL (70-99); Phosphorus, Blood 3.3 mg/dL (2.5-4.9); Potassium, Blood 4.3 mmol/L (3.5-5.5); Sodium, Blood 138 mmol/L (136-145)
[2023-08-12 08:09] VITALS: BP 149/86
[2023-08-12] MEDS ORDERED: GUAI600T33 PO (12:11)
[2023-08-12] MEDS ORDERED: AZIT500 PO (12:12)
== END 2023-08-12 13:30 | disposition home or self-care (01) | DRG 177 ==
LOC: ER 05:32 → ERHOLD 05:33 → MEDS 15:05
PROVIDERS: Emergency Medicine; Nurse Practitioner Acute Care; Student in an Organized Health Care Education/Training Program; ADMIT Family Medicine
DX: U07.1 COVID-19 (principal); J96.01 Acute respiratory failure with hypoxia; J44.0 Chronic obstructive pulmonary disease with (acute) lower respiratory infection; E87.3 Alkalosis; I10 Essential (primary) hypertension; K21.9 Gastro-esophageal reflux disease without esophagitis; F43.10 Post-traumatic stress disorder, unspecified; F12.90 Cannabis use, unspecified, uncomplicated; G89.29 Other chronic pain; M54.9 Dorsalgia, unspecified; M19.90 Unspecified osteoarthritis, unspecified site; I25.10 Atherosclerotic heart disease of native coronary artery without angina pectoris; E78.5 Hyperlipidemia, unspecified; M81.0 Age-related osteoporosis without current pathological fracture; Z85.51 Personal history of malignant neoplasm of bladder; Z79.82 Long term (current) use of aspirin; Z79.52 Long term (current) use of systemic steroids; Z92.21 Personal history of antineoplastic chemotherapy; Z87.891 Personal history of nicotine dependence; Z28.21 Immunization not carried out because of patient refusal
CPT/HCPCS: 0202U; 36415; 71045; 71260; 80053; 80069; 82803; 83605; 83735; 84100; 84145; 84484; 85025; 87040; 93005; 93010; 94640; 94644; 94645; 94664; 94760; 96365; 96366; 96367; 96375; 96376; 99285-25; A9270; G0378; J0360; J0456; J0696; J1885; J2060; J2405; J2930; J7030; J7050; Q9967

== ENCOUNTER → 2024-04-04 | Outpatient (CLI) | payer OTHER ==
[~2024-04-04] MED LIST changes: +DILTIAZEM 24HR360 MG PO; +IPRAT-ALBUT 0.5-3 ML INH; +METO25ER PO; +MIRT30 PO; +PANT20 PO; +TIZANIDINE HCL2 M4 PO
== END | disposition home or self-care (01) ==
LOC: LAB SHORT 15:17 → LAB 15:17
DX: J44.1 Chronic obstructive pulmonary disease with (acute) exacerbation (principal); J45.901 Unspecified asthma with (acute) exacerbation
CPT/HCPCS: 87070; 87205

== ENCOUNTER 2024-08-15 17:26 | Inpatient (IN) | payer OTHER ==
[~2024-08-15] VITALS: Ht 172.7 cm; Wt 99.9 kg
[~2024-08-15 17:26] MED LIST changes: -PANT20 PO
[2024-08-15 18:30] LABS: BASOPHILS ABSOLUTE AUTO 0.09 K/mm3 (0.00-0.23); BASOPHILS PERCENT AUTO 1 % (0-2); EOSINOPHILS ABSOLUTE AUTO 0.06 K/mm3 (0.00-0.68); EOSINOPHILS PERCENT AUTO 1 % (0-6); Hematocrit 41.3 % (37.0-53.0); Hemoglobin 13.3 g/dL (13.5-17.5); IMMATURE GRAN ABSOLUTE AUTO 0.18 K/mm3 (0.00-0.10); IMMATURE GRAN PERCENT AUTO 2 % (0-1); LYMPHOCYTES ABSOLUTE AUTO 1.74 K/mm3 (0.84-5.20); LYMPHOCYTES PERCENT AUTO 19 % (21-46); MONOCYTES ABSOLUTE AUTO 1.02 K/mm3 (0.16-1.47); MONOCYTES PERCENT AUTO 11 % (4-13); Mean Corpuscular HGB 28.9 pg (26.0-34.0); Mean Corpuscular HGB Conc 32.2 g/dL (31.5-36.5); Mean Corpuscular Volume 90 fL (80-100); Mean Platelet Volume 11.8 fL (9.1-12.4); NEUTROPHILS ABSOLUTE AUTO 6.13 K/mm3 (1.96-9.15); NEUTROPHILS PERCENT AUTO 66 % (41-73); Platelet Count 217 K/mm3 (150-400); RDW Coefficient Variation 15.8 % (11.7-14.2); White Blood Cell Count 9.22 K/mm3 (4.00-11.30)
[2024-08-15] MEDS ORDERED: Ipratropium Bromide INH 0.02% 0.5 mg/2.5ML Vial INH SCH (18:30)
[2024-08-15] MEDS ORDERED: MethylPREDNISolone Sod Succ 125 MG Vial IV ONE (18:30)
[2024-08-15] MEDS ORDERED: Albuterol 2.5 MG/3 ML VIAL INH ONE (18:30)
[2024-08-15 19:09] LABS: Albumin, Blood 3.3 g/dL (3.4-5.0); Albumin/Globulin Ratio 1.1 (0.8-1.8); Bilirubin, Total 0.6 mg/dL (0.1-1.0); Bun/Creatinine Ratio 16.8 (12.0-20.0); Creatinine, Blood 1.13 mg/dL (0.60-1.20); Potassium, Blood 4.4 mmol/L (3.5-5.5); Total Protein, Blood 6.3 g/dL (6.4-8.2)
[2024-08-15 19:49] LABS: Bicarbonate Venous 26.4 mmol/L (24.0-30.0); PCO2 Venous 36.3 mmHg (38-42); pH Blood Venous 7.46 (7.34-7.37)
[2024-08-15 20:48] LABS: CORONAVIRUS COVID-19 AG Negative (NEGATIVE); INFLUENZA A AG Positive (NEGATIVE); INFLUENZA B AG Negative (NEGATIVE)
[2024-08-15] MEDS ORDERED: FLU VACC TS2024-25(6MOS UP)/PF 45 MCG/0.5 ML SYRINGE IM ONE (23:05)
[2024-08-15] MEDS ORDERED: Acetaminophen 325 MG TABLET PO PRN (23:05)
[2024-08-15] MEDS ORDERED: Budesonide 0.5 MG/2 ML RESP INH SCH (23:10)
[2024-08-15] MEDS ORDERED: Ipratropium/Albuterol SulF 2.5-0.5MG/3 ML Amp INH SCH (23:10)
[2024-08-15] MEDS ORDERED: LOSA25 PO (23:14)
[2024-08-15] MEDS ORDERED: MethylPREDNISolone Sod Succ 125 MG Vial IV SCH (23:47)
[2024-08-16] MEDS ORDERED: FOSAMAX70 MG PO (00:47)
[2024-08-16] MEDS ORDERED: FUROSEMIDE20 MG PO (00:51)
[2024-08-16] MEDS ORDERED: AMOX-CLAV 875-1 EAC5 PO (00:55)
[2024-08-16 01:37] VITALS: BP 148/98
--- NOTE | 2024-08-16 02:20 | NUR ---
TRANSFER SUMMARY: PT AOX4 CAME FROM THE ED. PT ABLE TO TRANSFER SELF IN BED AND REPOSITION NEEDED. ABLE TO ANSWER QUESTIONS APPROPRIATELY. ORIENTED TO ROOM AND TO CALL LIGHT. BED IN LOWEST POSITION, CALL LIGHT IN REACH. CONTINUING CARE.
[2024-08-16 04:32] VITALS: BP 151/92
--- NOTE | 2024-08-16 05:39 | NUR ---
SHIFT SUMMARY PATIENT IS A TRANSFER FROM [facility]. PATIENT HAS HAD NO ACUTE EVENTS SINCE TRANSFER. PATIENT STILL ON 3L NC. NO COMPLAINTS OF SOB, NAUSEA, PAIN, OR VOMITTING THIS SHIFT.
[2024-08-16 05:46] LABS: Albumin, Blood 3.2 g/dL (3.4-5.0); Bilirubin, Total 0.5 mg/dL (0.1-1.0); Bun/Creatinine Ratio 20.9 (12.0-20.0); Calcium, Blood 9.2 mg/dL (8.5-10.1); Creatinine, Blood 1.1 mg/dL (0.60-1.20); Globulin, Blood 3.1 g/dL (2.2-4.0); Magnesium, Blood 2.4 mg/dL (1.6-2.4); Potassium, Blood 4.7 mmol/L (3.5-5.5); Total Protein, Blood 6.3 g/dL (6.4-8.2)
[2024-08-16 05:53] LABS: BASOPHILS ABSOLUTE AUTO 0.04 K/mm3 (0.00-0.23); BASOPHILS PERCENT AUTO 1 % (0-2); EOSINOPHILS PERCENT AUTO 0 % (0-6); Hematocrit 41.1 % (37.0-53.0); IMMATURE GRAN ABSOLUTE AUTO 0.13 K/mm3 (0.00-0.10); IMMATURE GRAN PERCENT AUTO 2 % (0-1); LYMPHOCYTES ABSOLUTE AUTO 0.76 K/mm3 (0.84-5.20); LYMPHOCYTES PERCENT AUTO 9 % (21-46); MONOCYTES ABSOLUTE AUTO 0.39 K/mm3 (0.16-1.47); MONOCYTES PERCENT AUTO 5 % (4-13); Mean Corpuscular HGB 28.5 pg (26.0-34.0); Mean Corpuscular HGB Conc 31.6 g/dL (31.5-36.5); Mean Corpuscular Volume 90 fL (80-100); Mean Platelet Volume 11.4 fL (9.1-12.4); NEUTROPHILS ABSOLUTE AUTO 7.22 K/mm3 (1.96-9.15); NEUTROPHILS PERCENT AUTO 85 % (41-73); Platelet Count 197 K/mm3 (150-400); RDW Coefficient Variation 15.4 % (11.7-14.2); Red Blood Cell Count 4.56 M/mm3 (4.30-5.90); White Blood Cell Count 8.54 K/mm3 (4.00-11.30)
[2024-08-16] MEDS ORDERED: Pantoprazole Sodium 20 MG Tab PO SCH (06:00)
[2024-08-16 08:23] VITALS: BP 149/95
[2024-08-16] MEDS ORDERED: Isosorbide Mononitrate 60 MG TABCR PO SCH (09:00)
[2024-08-16] MEDS ORDERED: dilTIAZem HCL 120 MG CAP.CD PO SCH (09:00)
[2024-08-16] MEDS ORDERED: GuaiFENesin 600 MG TabCR PO SCH (09:00)
[2024-08-16] MEDS ORDERED: Enoxaparin 40 MG/0.4 ML SYR SC SCH (09:00)
[2024-08-16] MEDS ORDERED: Oseltamivir Phosphate 75 MG Cap PO SCH ×2 (09:00→21:00)
[2024-08-16] MEDS ORDERED: Atorvastatin 40 MG Tab PO SCH (09:00)
[2024-08-16] MEDS ORDERED: Metoprolol Succinate 25 MG TABCR PO SCH (09:00)
[2024-08-16] MEDS ORDERED: Aspirin 81 MG Chew PO SCH (09:00)
[2024-08-16] MEDS ORDERED: Prednisone10 MG PO (16:07)
[2024-08-16 17:06] VITALS: BP 135/86
--- NOTE | 2024-08-16 18:10 | NUR ---
SHIFT SUMMARY PATIENT WENT DOWN FOR CT PE STUDY THIS AM. HAVE BEEN ABLE TO WEAN O2 LEVEL FROM 2.5 DOWN TO 1.5L NC. CONTINUOUS PULSE OX MONITORING. STAND BY ASSIST TO BATHROOM. SOB AT REST WITH PRODUCTIVE COUGH. NO TELE EVENTS. CALLS APPROPRIATELY.
[2024-08-16 19:36] VITALS: BP 147/97
[2024-08-16] MEDS ORDERED: Mirtazapine 30 MG SoluTab PO SCH (21:00)
[2024-08-17 03:53] VITALS: BP 152/103
--- NOTE | 2024-08-17 04:45 | NUR ---
SHIFT SUMMARY: PT AOX4 IND IN ROOM. HAS BEEN USING OXYGEN INTERMITTENTLY, HAS BEEN SATTING IN THE LOW TO MID 90S WITHOUT AT REST AND IN THE HIGH 80'S WHEN GOING TO THE RESTROOM. WAS ABLE TO GET SOME SLEEP AND UPON AWAKING STATED THAT HE FEEL LIKE HE SWEATED THE FEVER OUT AND THAT HE FEELS A LOT BETTER. LUNGS ARE MUCH CLEARER THAN AT ADMISSION ON AUSCULTATION. SOME COUGHING BUT NOT PRODUCTIVE BEFORE. PT PLEASANT AND IND. NO OTHER ACUTE EVENTS OVERNIGHT. PT IS IN BED RESTING, BED IN LOWEST POSITION, CALL LIGHT IN REACH. CONTINUING CARE.
[2024-08-17 07:39] VITALS: BP 151/94
[2024-08-17 08:27] LABS: BASOPHILS ABSOLUTE AUTO 0.03 K/mm3 (0.00-0.23); BASOPHILS PERCENT AUTO 0 % (0-2); EOSINOPHILS PERCENT AUTO 0 % (0-6); Hematocrit 39.6 % (37.0-53.0); Hemoglobin 12.9 g/dL (13.5-17.5); IMMATURE GRAN ABSOLUTE AUTO 0.19 K/mm3 (0.00-0.10); IMMATURE GRAN PERCENT AUTO 1 % (0-1); LYMPHOCYTES ABSOLUTE AUTO 1.01 K/mm3 (0.84-5.20); LYMPHOCYTES PERCENT AUTO 6 % (21-46); MONOCYTES ABSOLUTE AUTO 1.15 K/mm3 (0.16-1.47); MONOCYTES PERCENT AUTO 7 % (4-13); Mean Corpuscular HGB 28.6 pg (26.0-34.0); Mean Corpuscular HGB Conc 32.6 g/dL (31.5-36.5); Mean Corpuscular Volume 88 fL (80-100); Mean Platelet Volume 11.5 fL (9.1-12.4); NEUTROPHILS ABSOLUTE AUTO 13.75 K/mm3 (1.96-9.15); NEUTROPHILS PERCENT AUTO 85 % (41-73); Platelet Count 210 K/mm3 (150-400); RDW Coefficient Variation 15.4 % (11.7-14.2); RDW Standard Deviation 49.3 fL (35.1-46.3); Red Blood Cell Count 4.51 M/mm3 (4.30-5.90); White Blood Cell Count 16.13 K/mm3 (4.00-11.30)
[2024-08-17 08:29] LABS: Albumin, Blood 3.2 g/dL (3.4-5.0); Albumin/Globulin Ratio 1.1 (0.8-1.8); Bilirubin, Total 0.3 mg/dL (0.1-1.0); Bun/Creatinine Ratio 24.3 (12.0-20.0); Calcium, Blood 8.9 mg/dL (8.5-10.1); Creatinine, Blood 1.15 mg/dL (0.60-1.20); Globulin, Blood 2.9 g/dL (2.2-4.0); Potassium, Blood 4.5 mmol/L (3.5-5.5); Total Protein, Blood 6.1 g/dL (6.4-8.2)
[2024-08-17] MEDS ORDERED: BUDESONIDE0.5 MG/2 M INH (10:53)
[2024-08-17] MEDS ORDERED: IPRAT-ALBUT 0.5-3 ML INH (10:53)
[2024-08-17] MEDS ORDERED: GUAI600T33 PO (10:53)
[2024-08-17] MEDS ORDERED: OSEL75CA PO (10:53)
--- NOTE | 2024-08-17 14:27 | NUR ---
DISCHARGE PT DISCHARGED HOME. ALERT AND ORIENTED X4, DENIES C/P, EXPERIENING SOME SOB- THIS HIS BASELINE. DISCHARGE INSTRUCTIONS DISCUSSED WITH PT. NO QUESTIONS OR CONCERNS AT DISCHARGE.
== END 2024-08-17 13:02 | disposition home or self-care (01) | DRG 193 ==
LOC: ER 17:26 → ERHOLD 17:27 → MEDS 08-16 01:26 → ENPENDDIS 08-17 11:49 → MEDS 08-17 13:02
PROVIDERS: Family Medicine; Student in an Organized Health Care Education/Training Program; ADMIT Student in an Organized Health Care Education/Training Program
DX: J10.1 Influenza due to other identified influenza virus with other respiratory manifestations (principal); J96.01 Acute respiratory failure with hypoxia; J44.1 Chronic obstructive pulmonary disease with (acute) exacerbation; I10 Essential (primary) hypertension; E78.5 Hyperlipidemia, unspecified; I25.10 Atherosclerotic heart disease of native coronary artery without angina pectoris; L84 Corns and callosities; M54.9 Dorsalgia, unspecified; G89.29 Other chronic pain; M81.0 Age-related osteoporosis without current pathological fracture; E86.0 Dehydration; K21.9 Gastro-esophageal reflux disease without esophagitis; D64.9 Anemia, unspecified; M19.90 Unspecified osteoarthritis, unspecified site; Z79.899 Other long term (current) drug therapy; Z79.82 Long term (current) use of aspirin; Z87.891 Personal history of nicotine dependence; Z88.1 Allergy status to other antibiotic agents; Z85.51 Personal history of malignant neoplasm of bladder; Z92.21 Personal history of antineoplastic chemotherapy; Z90.79 Acquired absence of other genital organ(s)
CPT/HCPCS: 36415; 71046; 71260; 80053; 82803; 83735; 83880; 84145; 84484; 85025; 85379; 87428-QW; 93005; 93010; 94640; 94644; 94664; 94760; 94762; 96374; 99285-25; A9270; G0378; J2470; J2919; Q9967

== ENCOUNTER 2024-11-17 13:44 | Observation (INO) | payer OTHER ==
[~2024-11-17] VITALS: Ht 172.7 cm; Wt 103.9 kg
[~2024-11-17 13:44] MED LIST changes: +AMOX-CLAV 875-1 EAC5 PO; +FOSAMAX70 MG PO; +FUROSEMIDE20 MG PO; +LOSA25 PO; +OSEL75CA PO
[2024-11-17] MEDS ORDERED: Ondansetron HCl 2 MG / ML 2ML Vial ONE (13:53)
[2024-11-17] MEDS ORDERED: Ondansetron HCl 2 MG / ML 2ML Vial IV ONE (13:55)
[2024-11-17] MEDS ORDERED: Aspirin 325 MG Tab PO ONE (14:25)
[2024-11-17] MEDS ORDERED: Clopidogrel Bisulfate 75 MG Tab PO ONE (14:25)
[2024-11-17 14:31] LABS: BASOPHILS ABSOLUTE AUTO 0.08 K/mm3 (0.00-0.23); BASOPHILS PERCENT AUTO 1 % (0-2); EOSINOPHILS PERCENT AUTO 0 % (0-6); Hematocrit 36.9 % (37.0-53.0); IMMATURE GRAN ABSOLUTE AUTO 0.43 K/mm3 (0.00-0.10); IMMATURE GRAN PERCENT AUTO 4 % (0-1); LYMPHOCYTES ABSOLUTE AUTO 1.19 K/mm3 (0.84-5.20); LYMPHOCYTES PERCENT AUTO 11 % (21-46); MONOCYTES ABSOLUTE AUTO 0.79 K/mm3 (0.16-1.47); MONOCYTES PERCENT AUTO 8 % (4-13); Mean Corpuscular HGB 29.6 pg (26.0-34.0); Mean Corpuscular HGB Conc 32.5 g/dL (31.5-36.5); Mean Corpuscular Volume 91 fL (80-100); Mean Platelet Volume 10.7 fL (9.1-12.4); NEUTROPHILS ABSOLUTE AUTO 8.03 K/mm3 (1.96-9.15); NEUTROPHILS PERCENT AUTO 76 % (41-73); Platelet Count 335 K/mm3 (150-400); RDW Coefficient Variation 15.4 % (11.7-14.2); RDW Standard Deviation 51.7 fL (35.1-46.3); Red Blood Cell Count 4.05 M/mm3 (4.30-5.90); White Blood Cell Count 10.52 K/mm3 (4.00-11.30)
[2024-11-17 14:46] LABS: Albumin, Blood 2.9 g/dL (3.4-5.0); Bilirubin, Total 0.5 mg/dL (0.1-1.0); Calcium, Blood 8.6 mg/dL (8.5-10.1); Creatinine, Blood 1.08 mg/dL (0.60-1.20); Globulin, Blood 2.9 g/dL (2.2-4.0); Potassium, Blood 4.5 mmol/L (3.5-5.5); Total Protein, Blood 5.8 g/dL (6.4-8.2)
[2024-11-17] MEDS ORDERED: OxyCODONE HCL 5 MG TAB PO PRN (16:45)
[2024-11-17] MEDS ORDERED: Budesonide 0.5 MG/2 ML RESP INH SCH (16:50)
[2024-11-17] MEDS ORDERED: TiZANidine HCl 4 MG Tab PO PRN (16:50)
[2024-11-17] MEDS ORDERED: Albuterol 2.5 MG/3 ML VIAL INH PRN (16:50)
[2024-11-17] MEDS ORDERED: Albuterol 2.5 MG/3 ML VIAL INH SCH (17:10)
[2024-11-17 17:51] VITALS: BP 163/94
--- NOTE | 2024-11-17 18:47 | NUR ---
PT ARRIVED TO ROOM AT 1740 AOX4 AND COOPERATIVE OF CARE. PT WAS REQUESTING TO EAT. CALLED DR KING AND HE ORDERED BEDSIDE SWALLOW EVAL WHICH PT DID WELL AND ORDER HEART HEALTHY DIET. PT WAS ALSO ABLE TO STAND AND THEN SIT INDEPENDENTLY ON HIS OWN. PT HAS CALL LIGHT WITHIN REACH AND HAS BEEN ORIENTED TO CALL LIGHT WILL CONTINUE TO MONITOR.
[2024-11-17 19:53] VITALS: BP 153/104
[2024-11-17] MEDS ORDERED: Mirtazapine 30 MG SoluTab PO SCH (21:00)
[2024-11-18] MEDS ORDERED: Ipratropium/Albuterol SulF 2.5-0.5MG/3 ML Amp INH SCH (01:50)
[2024-11-18] MEDS ORDERED: Albuterol 2.5 MG/3 ML VIAL INH PRN (01:55)
--- NOTE | 2024-11-18 04:15 | NUR ---
SHIFT SUMMARY PT IS ALERT AND ORIENTED TIMES 4, FULL CODE. PT ADMITTED FOR CVA LEFT SIDE. . PT IS FULL CODE, ROOM AIR. PT HAS LEFT SIDE FACIAL DROOP. LEFT SIDE NUMBNESS. PT HAS SCD S IN PLACE BI LATERAL. PT IS INDEPENDENT AND ABLE TO AMBULATE TO TOILET, HEART HEALTHY DIET. PT HAS BED IN LOW POSITION, CALL LIGHT WITHIN REACH, RAILS TIMES 2.
[2024-11-18 04:25] VITALS: BP 136/83
[2024-11-18] MEDS ORDERED: Pantoprazole Sodium 40 MG Injection IV SCH (06:00)
[2024-11-18 06:43] LABS: BASOPHILS ABSOLUTE AUTO 0.15 K/mm3 (0.00-0.23); BASOPHILS PERCENT AUTO 2 % (0-2); EOSINOPHILS ABSOLUTE AUTO 0.18 K/mm3 (0.00-0.68); EOSINOPHILS PERCENT AUTO 2 % (0-6); Hematocrit 37.8 % (37.0-53.0); Hemoglobin 11.8 g/dL (13.5-17.5); IMMATURE GRAN PERCENT AUTO 4 % (0-1); LYMPHOCYTES ABSOLUTE AUTO 2.53 K/mm3 (0.84-5.20); LYMPHOCYTES PERCENT AUTO 26 % (21-46); MONOCYTES ABSOLUTE AUTO 1.14 K/mm3 (0.16-1.47); MONOCYTES PERCENT AUTO 12 % (4-13); Mean Corpuscular HGB 28.7 pg (26.0-34.0); Mean Corpuscular HGB Conc 31.2 g/dL (31.5-36.5); Mean Corpuscular Volume 92 fL (80-100); NEUTROPHILS ABSOLUTE AUTO 5.48 K/mm3 (1.96-9.15); NEUTROPHILS PERCENT AUTO 56 % (41-73); Platelet Count 334 K/mm3 (150-400); RDW Coefficient Variation 15.4 % (11.7-14.2); RDW Standard Deviation 52.2 fL (35.1-46.3); Red Blood Cell Count 4.11 M/mm3 (4.30-5.90); White Blood Cell Count 9.88 K/mm3 (4.00-11.30)
[2024-11-18 07:07] LABS: Anion Gap 11 mmol/L (3-11); Blood Urea Nitrogen 12 mg/dL (8-24); Bun/Creatinine Ratio 12.2 (12.0-20.0); CO2, Blood 28 mmol/L (21-32); Calcium, Blood 8.5 mg/dL (8.5-10.1); Chloride, Blood 105 mmol/L (98-108); Cholesterol 124 mg/dL (50-200); Creatinine, Blood 0.98 mg/dL (0.60-1.20); Glomerular Filtration Rate 83 (60-); Glucose, Blood 80 mg/dL (70-99); HDL Cholesterol 62 mg/dL (>39); LDL/HDL RATIO 0.6; Low Density Lipoprotein Chol 39 mg/dL (0-110); Potassium, Blood 3.8 mmol/L (3.5-5.5); Sodium, Blood 140 mmol/L (136-145); Triglycerides 116 mg/dL (30-160); Very Low Density Lipoprot Chol 23 mg/dL (6-32)
[2024-11-18 07:22] VITALS: BP 145/85
[2024-11-18] MEDS ORDERED: Clopidogrel Bisulfate 75 MG Tab PO SCH (09:00)
[2024-11-18] MEDS ORDERED: PredniSONE 20 MG Tab PO SCH (09:00)
[2024-11-18] MEDS ORDERED: Enoxaparin 40 MG/0.4 ML SYR SC SCH (09:00)
[2024-11-18] MEDS ORDERED: Aspirin 81 MG Chew PO SCH (09:00)
[2024-11-18] MEDS ORDERED: Metoprolol Succinate 25 MG TABCR PO SCH (09:00)
[2024-11-18] MEDS ORDERED: MULVITA PO (10:46)
[2024-11-18] MEDS ORDERED: CEPH500 PO (10:55)
[2024-11-18] MEDS ORDERED: Percocet 5-3251 EACH PO (10:57)
[2024-11-18 15:42] VITALS: BP 129/85
--- NOTE | 2024-11-18 17:02 | NUR ---
PT IS AOX4 AND COOPERATIVE OF CARE. PT HAS BEEN TREATED FOR PAIN IN BACK AND HAS HAD A STEADY FERNANDEZ TODAY. PT TREATED FOR BACK PAIN PER EMAR TO COMPLETE MRI AND IT WAS SUCCESSFUL. PT IS A STANBY ASSIST TO TRANFER NO DISTRESS NOTED. VERY MILD IMPROVEMENT TO L FACIAL DROOP AND PT REPORTS NOT FEELING NUMB ON L SIDE EXTREMETIES HE DID WHEN ADMITTED. CALL LIGHT IS IN REACH WILL CONTINUE TO MONITOR.
[2024-11-18] MEDS ORDERED: Pantoprazole Sodium 40 MG Tab PO SCH (17:15)
[2024-11-18 19:16] VITALS: BP 143/92
[2024-11-19 04:14] VITALS: BP 142/90
--- NOTE | 2024-11-19 05:42 | NUR ---
SHIFT SUMMARY PT IS ALERT AND ORIENTED TIMES 4, FULL CODE. PT ADMITTED FOR CVA LEFT SIDE. . PT IS FULL CODE, ROOM AIR. PT HAS LEFT SIDE FACIAL DROOP. LEFT SIDE NUMBNESS. PT HAS SCD S IN PLACE BI LATERAL. PT IS INDEPENDENT AND ABLE TO AMBULATE TO TOILET, HEART HEALTHY DIET. PT HAS NO IV ACCESS ORDER. PT HAD ECO AND MRI DONE YESTERDAY. MRI RESULTS STILL PENDING. PT HAS BED IN LOW POSITION, CALL LIGHT WITHIN REACH, RAILS TIMES 2.
[2024-11-19] MEDS ORDERED: Pantoprazole Sodium 40 MG Tab PO SCH (06:00)
[2024-11-19 07:14] VITALS: BP 153/93
[2024-11-19 07:21] LABS: BASOPHILS ABSOLUTE AUTO 0.11 K/mm3 (0.00-0.23); BASOPHILS PERCENT AUTO 1 % (0-2); EOSINOPHILS ABSOLUTE AUTO 0.22 K/mm3 (0.00-0.68); EOSINOPHILS PERCENT AUTO 2 % (0-6); Hematocrit 39.4 % (37.0-53.0); Hemoglobin 12.7 g/dL (13.5-17.5); IMMATURE GRAN ABSOLUTE AUTO 0.27 K/mm3 (0.00-0.10); IMMATURE GRAN PERCENT AUTO 2 % (0-1); LYMPHOCYTES ABSOLUTE AUTO 2.73 K/mm3 (0.84-5.20); LYMPHOCYTES PERCENT AUTO 22 % (21-46); MONOCYTES ABSOLUTE AUTO 1.31 K/mm3 (0.16-1.47); MONOCYTES PERCENT AUTO 11 % (4-13); Mean Corpuscular HGB 29.7 pg (26.0-34.0); Mean Corpuscular HGB Conc 32.2 g/dL (31.5-36.5); Mean Corpuscular Volume 92 fL (80-100); Mean Platelet Volume 10.9 fL (9.1-12.4); NEUTROPHILS ABSOLUTE AUTO 7.55 K/mm3 (1.96-9.15); NEUTROPHILS PERCENT AUTO 62 % (41-73); Platelet Count 361 K/mm3 (150-400); RDW Coefficient Variation 15.4 % (11.7-14.2); RDW Standard Deviation 52.1 fL (35.1-46.3); Red Blood Cell Count 4.27 M/mm3 (4.30-5.90); White Blood Cell Count 12.19 K/mm3 (4.00-11.30)
[2024-11-19 07:45] LABS: Bun/Creatinine Ratio 15.1 (12.0-20.0); Calcium, Blood 8.7 mg/dL (8.5-10.1); Creatinine, Blood 0.99 mg/dL (0.60-1.20); Potassium, Blood 3.8 mmol/L (3.5-5.5)
--- NOTE | 2024-11-19 13:03 | NUR ---
CALLED DR VASQUEZ TO INFORM HIM PATIENT DECLINING TO WORK WITH PT.
[2024-11-19] MEDS ORDERED: CLOP75 PO (13:20)
--- NOTE | 2024-11-19 15:22 | NUR ---
DISCHARGE SUMMARY PATIENT DISCHARGED HOME WITH DAUGHTER TO DRIVE. DISCHARGE PACKET GIVEN AND REVIEWED, QUESTIONS ANSWERED, VERBALIZED UNDERSTANDING. NO IV TO REMOVE. A/OX4.
== END 2024-11-19 14:41 | disposition home or self-care (01) ==
LOC: ER 13:44 → MEDS 13:45
PROVIDERS: Student in an Organized Health Care Education/Training Program; ADMIT Internal Medicine
DX: G45.9 Transient cerebral ischemic attack, unspecified (principal); I25.10 Atherosclerotic heart disease of native coronary artery without angina pectoris; I10 Essential (primary) hypertension; E78.5 Hyperlipidemia, unspecified; E11.9 Type 2 diabetes mellitus without complications; K21.9 Gastro-esophageal reflux disease without esophagitis; G89.29 Other chronic pain; M54.9 Dorsalgia, unspecified; M81.0 Age-related osteoporosis without current pathological fracture; J44.89 Other specified chronic obstructive pulmonary disease; Z87.891 Personal history of nicotine dependence; Z88.1 Allergy status to other antibiotic agents; Z88.5 Allergy status to narcotic agent; Z88.2 Allergy status to sulfonamides; Z79.82 Long term (current) use of aspirin; Z79.899 Other long term (current) drug therapy
CPT/HCPCS: 36415; 70450; 70496; 70498; 70551; 71045; 80048; 80053; 80061; 83036; 84484; 85025; 92610; 93005; 93010; 93306; 94640; 94664; 94760; 96374-59; 96375; 99285-25; A9270; G0378; J2405; J2470; J7512; Q9967

== ENCOUNTER 2025-01-27 02:05 | Inpatient (IN) | payer OTHER ==
[~2025-01-27] VITALS: Ht 172.7 cm; Wt 102.1 kg
[~2025-01-27 02:05] MED LIST changes: +MULVITA PO; +Percocet 5-3251 EACH PO
[2025-01-27] MEDS ORDERED: Ipratropium Bromide INH 0.02% 0.5 mg/2.5ML Vial INH SCH (02:10)
[2025-01-27] MEDS ORDERED: Albuterol 2.5 MG/3 ML VIAL INH SCH (02:10)
[2025-01-27] MEDS ORDERED: Albuterol 2.5 MG/3 ML VIAL ONE (02:11)
[2025-01-27] MEDS ORDERED: Ipratropium Bromide INH 0.02% 0.5 mg/2.5ML Vial ONE (02:11)
[2025-01-27 02:23] LABS: BASOPHILS ABSOLUTE AUTO 0.14 K/mm3 (0.00-0.23); BASOPHILS PERCENT AUTO 1 % (0-2); EOSINOPHILS ABSOLUTE AUTO 0.33 K/mm3 (0.00-0.68); EOSINOPHILS PERCENT AUTO 2 % (0-6); Hematocrit 44.7 % (37.0-53.0); Hemoglobin 14.5 g/dL (13.5-17.5); IMMATURE GRAN ABSOLUTE AUTO 0.18 K/mm3 (0.00-0.10); IMMATURE GRAN PERCENT AUTO 1 % (0-1); LYMPHOCYTES ABSOLUTE AUTO 2.57 K/mm3 (0.84-5.20); LYMPHOCYTES PERCENT AUTO 16 % (21-46); MONOCYTES ABSOLUTE AUTO 2.29 K/mm3 (0.16-1.47); MONOCYTES PERCENT AUTO 14 % (4-13); Mean Corpuscular HGB Conc 32.4 g/dL (31.5-36.5); Mean Corpuscular Volume 92 fL (80-100); NEUTROPHILS ABSOLUTE AUTO 11.07 K/mm3 (1.96-9.15); NEUTROPHILS PERCENT AUTO 67 % (41-73); NRBC ABSOLUTE 0.00 K/mm3 (0.00-0.02); NRBC Auto 0.0 /100 WBC (0.0-0.2); Platelet Count 235 K/mm3 (150-400); RDW Coefficient Variation 14.6 % (11.7-14.2); RDW Standard Deviation 49.1 fL (35.1-46.3)
[2025-01-27 02:46] LABS: Alanine Aminotransfer (ALT/SGP 56.0 U/L (12-78); Albumin, Blood 3.7 g/dL (3.4-5.0); Albumin/Globulin Ratio 1.2 (0.8-1.8); Anion Gap 10.0 mmol/L (3-11); Aspartate Aminotrans (AST/SGOT 44.0 U/L (12-37); Bilirubin, Total 0.5 mg/dL (0.1-1.0); Blood Urea Nitrogen 20.0 mg/dL (8-24); CO2, Blood 27.0 mmol/L (21-32); Calcium, Blood 9.1 mg/dL (8.5-10.1); Chloride, Blood 104.0 mmol/L (98-108); Creatinine, Blood 1.28 mg/dL (0.60-1.20); Globulin, Blood 3.2 g/dL (2.2-4.0); Glucose, Blood 94.0 mg/dL (70-99); Potassium, Blood 4.1 mmol/L (3.5-5.5); Sodium, Blood 137.0 mmol/L (136-145); Total Protein, Blood 6.9 g/dL (6.4-8.2)
[2025-01-27] MEDS ORDERED: CefTRIAXone Sodium 2,000 MG in NS 100 ML IV ONE (03:10)
[2025-01-27] MEDS ORDERED: NS 1,000 ML IV SCH (03:20)
[2025-01-27] MEDS ORDERED: Ondansetron HCl 2 MG / ML 2ML Vial IV PRN (05:50)
[2025-01-27] MEDS ORDERED: Ipratropium/Albuterol SulF 2.5-0.5MG/3 ML Amp INH PRN (05:50)
[2025-01-27] MEDS ORDERED: Enoxaparin 40 MG/0.4 ML SYR SC SCH (09:00)
[2025-01-27 09:21] LABS: Influenza A, PCR NEGATIVE (NEGATIVE); Influenza B, PCR NEGATIVE (NEGATIVE); Resp Syncytial Virus, PCR NEGATIVE (NEGATIVE); SARS-Cov-2 (COVID-19) PCR, MMC NEGATIVE (NEGATIVE)
[2025-01-27] MEDS ORDERED: Alendronate Sod70 MG PO (09:42)
[2025-01-27] MEDS ORDERED: ARFORMOTER15 MCG/2 M INH (09:42)
[2025-01-27] MEDS ORDERED: ATOR80 PO (09:43)
[2025-01-27] MEDS ORDERED: Aspir 8181 MG PO (09:43)
[2025-01-27] MEDS ORDERED: MULTIVITAMINS1 EAC4 PO (09:44)
[2025-01-27] MEDS ORDERED: CLOBETASOL EMOL15 G1 (09:44)
[2025-01-27] MEDS ORDERED: DILT120 PO (09:45)
[2025-01-27] MEDS ORDERED: FURO20 PO (09:45)
[2025-01-27] MEDS ORDERED: IPRAT-ALBUT 0.5-3 ML (09:46)
[2025-01-27] MEDS ORDERED: Isosorbide Mono30 MG PO (09:46)
[2025-01-27] MEDS ORDERED: METO25ER PO (09:47)
[2025-01-27] MEDS ORDERED: LOSA25 PO (09:47)
[2025-01-27] MEDS ORDERED: MIRT15 PO (09:48)
[2025-01-27] MEDS ORDERED: NITR.4SL SL (09:48)
[2025-01-27] MEDS ORDERED: POTA10T PO (09:49)
[2025-01-27] MEDS ORDERED: PANT40 PO (09:49)
[2025-01-27] MEDS ORDERED: TIZA4 PO (09:50)
[2025-01-27] MEDS ORDERED: Prednisone10 MG PO (09:50)
[2025-01-27] MEDS ORDERED: [UNRECOGNIZED DRUG - OTHER] INH (11:12)
[2025-01-27] MEDS ORDERED: Budesonide 0.5 MG/2 ML RESP INH SCH (11:15)
--- NOTE | 2025-01-27 13:03 | NUR ---
MD CONTACTED: THIS RN CALLED MD REGARDING PT'S STATUS SAYING IN THE NOTE THAT PT IS MEDICAL STATUS. MD GAVE VERBAL ORDER FOR MEDICAL STATUS.
[2025-01-27 13:53] VITALS: BP 151/94
[2025-01-27] MEDS ORDERED: Insulin Human Lispro 100 Units/ML 3ML Syringe SC SCH (16:30)
[2025-01-27 17:09] VITALS: BP 143/89
--- NOTE | 2025-01-27 17:13 | NUR ---
SHIFT SUMMARY: PATIENT IS ALERT AND ORIENTED X4 & COOPERATIVE WITH HIS CARE, ABLE TO MAKE NEEDS KNOWN AND USES CALL LIGHT APPRORIATELY. PATIENT IS MEDICAL STATUS. PT IS SATTING >92% ON 2 LITERS VIA NASAL CANNULA WHICH IS PT'S BASELINE. ON TELE SHOWING SINUS RYTHM TO SINUS TACH OCCASIONALLY, 70-110. GETTING NEBULIZER TREATMENTS SCHEDULED FOR ASTHMA EXAC. WAS MEDICATED WITH INSULIN THROUGHOUT SHIFT FOR LOW SLIDING SCALE, WHICH IS NEW TO PATIENT. PT AWARE HE IS GETTING STEROIDS WELL. PT WAS ABLE TO GET SOME REST THROUGHOUT SHIFT BUT STATING HE WOULD LIKE TO GET HOME. PLAN WILL BE POSSIBLE DISCHARGE TOMORROW OR THURSDAY. PT AWAITING DINNER, HAS CALL LIGHT WITHIN REACH & BED IN LOWEST POSITION STATING NOTHING ELSE IS NEEDED AT THIS TIME.
[2025-01-27] MEDS ORDERED: Ipratropium/Albuterol SulF 2.5-0.5MG/3 ML Amp INH SCH (19:10)
[2025-01-27] MEDS ORDERED: Albuterol 2.5 MG/3 ML VIAL INH PRN (19:10)
[2025-01-27 20:36] VITALS: BP 151/89
[2025-01-28 00:01] VITALS: BP 148/90
[2025-01-28 03:14] VITALS: BP 142/92
[2025-01-28 04:29] LABS: BASOPHILS ABSOLUTE AUTO 0.03 K/mm3 (0.00-0.23); BASOPHILS PERCENT AUTO 0 % (0-2); EOSINOPHILS ABSOLUTE AUTO 0.00 K/mm3 (0.00-0.68); EOSINOPHILS PERCENT AUTO 0 % (0-6); Hematocrit 41.6 % (37.0-53.0); Hemoglobin 13.1 g/dL (13.5-17.5); IMMATURE GRAN ABSOLUTE AUTO 0.12 K/mm3 (0.00-0.10); IMMATURE GRAN PERCENT AUTO 1 % (0-1); LYMPHOCYTES ABSOLUTE AUTO 0.57 K/mm3 (0.84-5.20); LYMPHOCYTES PERCENT AUTO 5 % (21-46); MONOCYTES ABSOLUTE AUTO 0.59 K/mm3 (0.16-1.47); MONOCYTES PERCENT AUTO 5 % (4-13); Mean Corpuscular HGB Conc 31.5 g/dL (31.5-36.5); Mean Corpuscular Volume 91 fL (80-100); NEUTROPHILS ABSOLUTE AUTO 10.01 K/mm3 (1.96-9.15); NEUTROPHILS PERCENT AUTO 88 % (41-73); NRBC ABSOLUTE 0.00 K/mm3 (0.00-0.02); NRBC Auto 0.0 /100 WBC (0.0-0.2); Platelet Count 210 K/mm3 (150-400); RDW Coefficient Variation 14.3 % (11.7-14.2); RDW Standard Deviation 48.0 fL (35.1-46.3)
[2025-01-28 05:07] LABS: Alanine Aminotransfer (ALT/SGP 61.0 U/L (12-78); Albumin, Blood 3.3 g/dL (3.4-5.0); Albumin/Globulin Ratio 1.1 (0.8-1.8); Anion Gap 8.0 mmol/L (3-11); Aspartate Aminotrans (AST/SGOT 41.0 U/L (12-37); Bilirubin, Total 0.5 mg/dL (0.1-1.0); Blood Urea Nitrogen 22.0 mg/dL (8-24); CO2, Blood 26.0 mmol/L (21-32); Calcium, Blood 8.6 mg/dL (8.5-10.1); Chloride, Blood 107.0 mmol/L (98-108); Creatinine, Blood 0.99 mg/dL (0.60-1.20); Globulin, Blood 3.1 g/dL (2.2-4.0); Glucose, Blood 197.0 mg/dL (70-99); Potassium, Blood 4.5 mmol/L (3.5-5.5); Sodium, Blood 136.0 mmol/L (136-145); Total Protein, Blood 6.4 g/dL (6.4-8.2)
[2025-01-28] MEDS ORDERED: CefTRIAXone Sodium 1,000 MG in NS 100 ML IV SCH (06:00)
--- NOTE | 2025-01-28 06:00 | NUR ---
SHIFT SUMMARY PT IS A&O X4, ABLE TO MAKE NEEDS KNOWN, MOVING ALL EXTREMITIES WITH PURPOSE, REPOSITIONING SELF IN BED, SBA TO BRP. CONTINUOUS SPO2, SPO2 GREATER 90% ON BASELINE 2L O2 VIA NC, LUNGS SOUND WHEEZY T/P EVEN AFTER BREATHING TRATEMENTS, NO SIGNS OF RESPIRATORY DISTRESS. CONTINUOUS TELE MONITORING, SINUS RHYTHM 90-100 S, PULSES PRESENT T/O, PT DENEIS CHEST P/P T/O THIS SHIFT, BP STABLE WITH MAP GREATER THAN 65. BOWEL TONES PRESENT IN ALL 4Q, PT DENIES FEELINGS OF NAUSEA, OR CONSTIPATION. PT USING URINAL IND. BED LOWEST POSITION, CALL LIGHT IN REACH, AWAITING TO GIVE REPORT TO ONCOMING RN.
--- NOTE | 2025-01-28 07:53 | NUR ---
ASSUMPTION NOTE: THIS RN TO ASSUME CARE OF PT. PATIENT IS SLEEPING IN BED,EASILY AROUSABLE TO VERBAL STIMULI. WANTING BREAKFAST AND COMPLAINING ABOUT HIS IV BOTHERING HIM. THIS RN TO LOOK AT A WARM COMPRESS OR POSSIBLY SOME ICE OR TYLENOL FOR IT. VITAL SIGNS STABLE AND PATIENT BEING SAT UP FOR BREAKFAST. HAS CALL LIGHT WITHIN REACH, BED IN LOWEST POSITION STATING NOTHING ELSE IS NEEDED AT THIS TIME.
[2025-01-28 07:54] VITALS: BP 155/101
--- NOTE | 2025-01-28 08:05 | NUR ---
MD ROUNDED: MD ROUNDED ON PT, PT ASKED TO GO HOME TODAY AND MD STATED SOME MORE STEROIDS AND LOOKING AT GOING HOME TODAY. PT IS BACK TO BASELINE OXYGEN SO WILL BE GOING HOME TODAY.
[2025-01-28] MEDS ORDERED: Potassium Chloride 10 Meq Tablet SA PO SCH (09:00)
[2025-01-28] MEDS ORDERED: Isosorbide Mononitrate 60 MG TABCR PO SCH (09:00)
[2025-01-28] MEDS ORDERED: Deltasone 10 mg10 MG PO (10:37)
[2025-01-28] MEDS ORDERED: Prednisone10 MG PO (10:38)
[2025-01-28] MEDS ORDERED: AZIT250 PO (10:40)
[2025-01-28] MEDS ORDERED: PRED20 PO (10:53)
--- NOTE | 2025-01-28 11:04 | NUR ---
DISCHARGE ORDER: PATIENT NOTIFIED DISCHARGE ORDERS ARE IN. THIS RN TO WORK ON THEM AND GIVE HIS AFTERNOON DOSE OF SOLUMEDROL. HE WILL BE CALLING HIS DAUGHTER TO COME PICK HIM UP. MEDICATIONS TO BE SENT OVER TO [facility]
[2025-01-28 11:40] VITALS: BP 116/84
--- NOTE | 2025-01-28 13:22 | NUR ---
DISCHARGE: PATIENT IS ALERT AND ORIENTED X4 & COOPERATIVE WITH HIS CARE. SATTING >92% ON 2 LITERS VIA NASAL CANNULA WHICH IS PT'S BASELINE. DAUGHTER CAME RIDE, WAS WHEELED OUT WITH ALL PERSONAL BELONINGS & DISCHARGE PAPERWORK. PATIENT AND DAUGHTER ARE AWARE OF NEW MEDICATIONS THAT WERE SENT TO [facility] & TO SCHEDULE A FOLLOW UP APPOINTMENT WITHIN 1 WEEK. PT STATED HE HAS AN APPOINTMENT ON THURSDAY SCHEDULED ALREADY.
== END 2025-01-28 13:17 | disposition home or self-care (01) | DRG 189 ==
LOC: ER 02:05 → ERHOLD 05:37 → PCU 05:37
PROVIDERS: Emergency Medicine; ADMIT Internal Medicine
DX: J96.21 Acute and chronic respiratory failure with hypoxia (principal); J44.1 Chronic obstructive pulmonary disease with (acute) exacerbation; I47.19 Other supraventricular tachycardia; I10 Essential (primary) hypertension; M81.0 Age-related osteoporosis without current pathological fracture; I25.10 Atherosclerotic heart disease of native coronary artery without angina pectoris; E86.0 Dehydration; M19.90 Unspecified osteoarthritis, unspecified site; E11.621 Type 2 diabetes mellitus with foot ulcer; L97.529 Non-pressure chronic ulcer of other part of left foot with unspecified severity; L97.519 Non-pressure chronic ulcer of other part of right foot with unspecified severity; Z88.8 Allergy status to other drugs, medicaments and biological substances; Z88.2 Allergy status to sulfonamides; Z88.1 Allergy status to other antibiotic agents; Z99.81 Dependence on supplemental oxygen; Z79.82 Long term (current) use of aspirin; Z79.51 Long term (current) use of inhaled steroids; Z79.83 Long term (current) use of bisphosphonates; Z79.02 Long term (current) use of antithrombotics/antiplatelets; Z86.73 Personal history of transient ischemic attack (TIA), and cerebral infarction without residual deficits; Z85.51 Personal history of malignant neoplasm of bladder; Z92.21 Personal history of antineoplastic chemotherapy; Z87.891 Personal history of nicotine dependence
CPT/HCPCS: 36415; 71045; 80053; 82947; 83605; 83880; 84484; 85025; 87040; 87637; 93005; 93010; 94640; 94644; 94664; 94760; 94762; 96365; 96368; 99285-25; A9270; J0456; J0696; J1650; J2919; J7030; J7050

== ENCOUNTER 2025-04-13 14:23 | Emergency (ER) | payer OTHER ==
[~2025-04-13] VITALS: Ht 172.7 cm; Wt 90.7 kg
[~2025-04-13 14:23] MED LIST changes: +ARFORMOTER15 MCG/2 M INH; +Alendronate Sod70 MG PO; +Aspir 8181 MG PO; +CLOBETASOL EMOL15 G1; +Deltasone 10 mg10 MG PO; +FURO20 PO; +IPRAT-ALBUT 0.5-3 ML; +MIRT15 PO; +MULTIVITAMINS1 EAC4 PO; +POTA10T PO; +TIZA4 PO; +[UNRECOGNIZED DRUG - OTHER] INH
[2025-04-13 15:42] LABS: BASOPHILS ABSOLUTE AUTO 0.15 K/mm3 (0.00-0.23); BASOPHILS PERCENT AUTO 1 % (0-2); EOSINOPHILS ABSOLUTE AUTO 0.27 K/mm3 (0.00-0.68); EOSINOPHILS PERCENT AUTO 2 % (0-6); Hematocrit 46.3 % (37.0-53.0); Hemoglobin 14.7 g/dL (13.5-17.5); IMMATURE GRAN ABSOLUTE AUTO 0.19 K/mm3 (0.00-0.10); IMMATURE GRAN PERCENT AUTO 1 % (0-1); LYMPHOCYTES ABSOLUTE AUTO 2.46 K/mm3 (0.84-5.20); LYMPHOCYTES PERCENT AUTO 18 % (21-46); MONOCYTES ABSOLUTE AUTO 1.88 K/mm3 (0.16-1.47); MONOCYTES PERCENT AUTO 14 % (4-13); Mean Corpuscular HGB Conc 31.7 g/dL (31.5-36.5); Mean Corpuscular Volume 88 fL (80-100); NEUTROPHILS ABSOLUTE AUTO 8.79 K/mm3 (1.96-9.15); NEUTROPHILS PERCENT AUTO 64 % (41-73); NRBC ABSOLUTE 0.00 K/mm3 (0.00-0.02); NRBC Auto 0.0 /100 WBC (0.0-0.2); Platelet Count 223 K/mm3 (150-400); RDW Coefficient Variation 14.2 % (11.7-14.2); RDW Standard Deviation 45.1 fL (35.1-46.3)
[2025-04-13 15:54] LABS: Alanine Aminotransfer (ALT/SGP 43.0 U/L (12-78); Albumin, Blood 3.3 g/dL (3.4-5.0); Albumin/Globulin Ratio 1.1 (0.8-1.8); Anion Gap 12.0 mmol/L (3-11); Aspartate Aminotrans (AST/SGOT 40.0 U/L (12-37); Bilirubin, Total 0.9 mg/dL (0.1-1.0); Blood Urea Nitrogen 13.0 mg/dL (8-24); CO2, Blood 21.0 mmol/L (21-32); Calcium, Blood 8.6 mg/dL (8.5-10.1); Chloride, Blood 105.0 mmol/L (98-108); Creatinine, Blood 1.11 mg/dL (0.60-1.20); Globulin, Blood 3.1 g/dL (2.2-4.0); Glucose, Blood 91.0 mg/dL (70-99); Potassium, Blood 4.3 mmol/L (3.5-5.5); Sodium, Blood 134.0 mmol/L (136-145); Total Protein, Blood 6.4 g/dL (6.4-8.2)
[2025-04-13 17:15] VITALS: BP 157/100
== END 2025-04-13 19:42 | disposition left against medical advice (07) ==
LOC: ER 14:23
PROVIDERS: Student in an Organized Health Care Education/Training Program
DX: R07.9 Chest pain, unspecified (principal); Z53.29 Procedure and treatment not carried out because of patient's decision for other reasons; Z12.5 Encounter for screening for malignant neoplasm of prostate; E11.9 Type 2 diabetes mellitus without complications; E55.9 Vitamin D deficiency, unspecified; R60.0 Localized edema
CPT/HCPCS: 36415; 71046; 80053; 82306; 83880; 84443; 85025; 85027; 93005; 93010; 99283-25; G0103

== ENCOUNTER → 2025-04-14 | Outpatient (CLI) | payer OTHER ==
[2025-04-14 22:31] LABS: Creatinine, Urine Random 271.0 mg/dL (27.00-270.00); Microalb/Creat Ratio UR, Rand 10.111 mg/g (0.000-30.000); Microalbumin, Random Urine 27.4 mg/L (0.000-20.000)
== END ==
LOC: LAB SHORT 10:26 → LAB 10:26
PROVIDERS: Family Medicine
DX: E11.9 Type 2 diabetes mellitus without complications (principal)
CPT/HCPCS: 82043; 82570

== ENCOUNTER 2025-05-04 20:22 | Inpatient (IN) | payer OTHER ==
[~2025-05-04] VITALS: Ht 172.7 cm; Wt 94.9 kg
[2025-05-04 21:09] LABS: BASOPHILS ABSOLUTE AUTO 0.21 K/mm3 (0.00-0.23); BASOPHILS PERCENT AUTO 1 % (0-2); EOSINOPHILS ABSOLUTE AUTO 0.13 K/mm3 (0.00-0.68); EOSINOPHILS PERCENT AUTO 1 % (0-6); Hematocrit 44.4 % (37.0-53.0); Hemoglobin 14.2 g/dL (13.5-17.5); IMMATURE GRAN ABSOLUTE AUTO 0.34 K/mm3 (0.00-0.10); IMMATURE GRAN PERCENT AUTO 2 % (0-1); LYMPHOCYTES ABSOLUTE AUTO 1.64 K/mm3 (0.84-5.20); LYMPHOCYTES PERCENT AUTO 11 % (21-46); MONOCYTES ABSOLUTE AUTO 1.92 K/mm3 (0.16-1.47); MONOCYTES PERCENT AUTO 13 % (4-13); Mean Corpuscular HGB Conc 32.0 g/dL (31.5-36.5); Mean Corpuscular Volume 86 fL (80-100); NEUTROPHILS ABSOLUTE AUTO 11.09 K/mm3 (1.96-9.15); NEUTROPHILS PERCENT AUTO 72 % (41-73); NRBC ABSOLUTE 0.00 K/mm3 (0.00-0.02); NRBC Auto 0.0 /100 WBC (0.0-0.2); Platelet Count 261 K/mm3 (150-400); RDW Coefficient Variation 14.8 % (11.7-14.2); RDW Standard Deviation 46.9 fL (35.1-46.3)
[2025-05-04] MEDS ORDERED: NS 1,000 ML IV SCH (21:10)
[2025-05-04 21:30] LABS: Alanine Aminotransfer (ALT/SGP 47.0 U/L (12-78); Albumin, Blood 3.3 g/dL (3.4-5.0); Albumin/Globulin Ratio 1.0 (0.8-1.8); Anion Gap 8.0 mmol/L (3-11); Aspartate Aminotrans (AST/SGOT 44.0 U/L (12-37); Bilirubin, Total 1.0 mg/dL (0.1-1.0); Blood Urea Nitrogen 23.0 mg/dL (8-24); CO2, Blood 30.0 mmol/L (21-32); Calcium, Blood 9.6 mg/dL (8.5-10.1); Chloride, Blood 101.0 mmol/L (98-108); Creatinine, Blood 1.21 mg/dL (0.60-1.20); Globulin, Blood 3.2 g/dL (2.2-4.0); Glucose, Blood 101.0 mg/dL (70-99); Potassium, Blood 5.2 mmol/L (3.5-5.5); Sodium, Blood 134.0 mmol/L (136-145); Total Protein, Blood 6.5 g/dL (6.4-8.2)
[2025-05-04] MEDS ORDERED: CefTRIAXone Sodium 1,000 MG in NS 100 ML IV ONE (21:35)
[2025-05-04 22:26] LABS: CORONAVIRUS COVID-19 AG Positive (NEGATIVE)
[2025-05-04] MEDS ORDERED: Dexamethasone Sod Phos 10 MG/ML 1ML VIAL IV ONE (23:00)
[2025-05-04] MEDS ORDERED: Ondansetron HCl 2 MG / ML 2ML Vial IV ONE (23:05)
[2025-05-04] MEDS ORDERED: Ipratropium/Albuterol SulF 2.5-0.5MG/3 ML Amp INH SCH (23:30)
[2025-05-04] MEDS ORDERED: FLU VACC TS2025(65UP)/MF59C/PF 45 MCG/0.5 ML SYRINGE IM SCH (23:35)
[2025-05-04] MEDS ORDERED: Prochlorperazine Edisylate 10 mg Vial IV PRN (23:40)
[2025-05-04 23:58] LABS: Magnesium, Blood 2.1 mg/dL (1.6-2.4)
[2025-05-05] VITALS (9 sets, daily range): BP systolic 87–163; BP diastolic 63–109
[2025-05-05] MEDS ORDERED: Remdesivir (EUA) 200 MG in NS 250 ML IV ONE (00:20)
[2025-05-05 03:45] LABS: pH Blood Venous 7.44 (7.34-7.37)
[2025-05-05 03:57] LABS: BASOPHILS ABSOLUTE AUTO 0.16 K/mm3 (0.00-0.23); BASOPHILS PERCENT AUTO 1 % (0-2); EOSINOPHILS ABSOLUTE AUTO 0.00 K/mm3 (0.00-0.68); EOSINOPHILS PERCENT AUTO 0 % (0-6); Hematocrit 42.6 % (37.0-53.0); Hemoglobin 13.4 g/dL (13.5-17.5); IMMATURE GRAN ABSOLUTE AUTO 0.32 K/mm3 (0.00-0.10); IMMATURE GRAN PERCENT AUTO 3 % (0-1); LYMPHOCYTES ABSOLUTE AUTO 0.75 K/mm3 (0.84-5.20); LYMPHOCYTES PERCENT AUTO 6 % (21-46); MONOCYTES ABSOLUTE AUTO 0.41 K/mm3 (0.16-1.47); MONOCYTES PERCENT AUTO 3 % (4-13); Mean Corpuscular HGB Conc 31.5 g/dL (31.5-36.5); Mean Corpuscular Volume 87 fL (80-100); NEUTROPHILS ABSOLUTE AUTO 11.38 K/mm3 (1.96-9.15); NEUTROPHILS PERCENT AUTO 87 % (41-73); NRBC ABSOLUTE 0.00 K/mm3 (0.00-0.02); NRBC Auto 0.0 /100 WBC (0.0-0.2); Platelet Count 210 K/mm3 (150-400); RDW Coefficient Variation 15.0 % (11.7-14.2); RDW Standard Deviation 48.0 fL (35.1-46.3)
[2025-05-05 06:31] LABS: Alanine Aminotransfer (ALT/SGP 63.0 U/L (12-78); Albumin, Blood 3.0 g/dL (3.4-5.0); Albumin/Globulin Ratio 1.0 (0.8-1.8); Anion Gap 11.0 mmol/L (3-11); Aspartate Aminotrans (AST/SGOT 51.0 U/L (12-37); Bilirubin, Total 0.4 mg/dL (0.1-1.0); Blood Urea Nitrogen 25.0 mg/dL (8-24); CO2, Blood 26.0 mmol/L (21-32); Calcium, Blood 8.8 mg/dL (8.5-10.1); Chloride, Blood 104.0 mmol/L (98-108); Creatinine, Blood 1.29 mg/dL (0.60-1.20); Globulin, Blood 3.1 g/dL (2.2-4.0); Glucose, Blood 178.0 mg/dL (70-99); Magnesium, Blood 2.3 mg/dL (1.6-2.4); Potassium, Blood 5.0 mmol/L (3.5-5.5); Sodium, Blood 136.0 mmol/L (136-145); Total Protein, Blood 6.1 g/dL (6.4-8.2)
--- NOTE | 2025-05-05 07:08 | NUR ---
ARRIVAL TO UNIT/SHIFT SUMMARY PT ARRIVAED TO UNIT @ 0525 VIA Sentient[facility]NEY FROM ED. PT SLID TO BED VIA SLIDER SHEET. PT PLACED IN GOWN, PERSONAL CLOTHING PLACED IN BELONGING BAG. PT ABLE TO AID c TURNS/ROM. PT REPORTS CHRONIC BACK PAIN c MOVEMENT. A&O x4, POOR/INCONSISTENT HISTORIAN. TOLERATING LIQUID PO INTAKE, DENIES N/V AT THIS TIME. O2 SAT >96% ON 2L O2 VIA NC, RR 18, PT DENIES SOB. HR 90s, MAP >65. PT DENIES CHEST PAIN/PRESSURE. PER REPORT FROM ED RN, PT HAS NOT VOIDED SINCE ARRIVAL TO HOSPITAL. PT STATES NO DIFFICULTY c URINATION & "WILL TRY TO GO". L 2ND TOE WOUND SEAFOOD SPECIALIST, NO DRAINAGE; SCATTERED SKIN TEARS/SCABS: PICS IN CHART. PT SELF REMOVED IV FROM ED. 2 NEW IV's PLACED, SALIENE LOCKED. PT STATES GLASSESS/ FULL DENTURES/ WALKER & CANE AT HOME, PT STATES HE RARELY USES ASSISTIVE EQUIPTMENT. CALL PHONE AT PT BEDSIDE. BEDSIDE REPORT GIVEN TO DAY RN, CALL LIGHT IN REACH.
[2025-05-05] MEDS ORDERED: Enoxaparin 40 MG/0.4 ML SYR SC SCH (09:00)
[2025-05-05] MEDS ORDERED: Lactobacil 2-S.Thermo-Bifido 1 1 Cap PO SCH (09:00)
[2025-05-05] MEDS ORDERED: Isosorbide Mononitrate 60 MG TABCR PO SCH (09:00)
[2025-05-05] MEDS ORDERED: Furosemide 10 MG / ML 2ML Vial IV SCH (09:00)
[2025-05-05] MEDS ORDERED: DECADRON6 M1 PO (13:13)
[2025-05-05] MEDS ORDERED: LACT PO (13:14)
[2025-05-05] MEDS ORDERED: AMOCLA875 PO (13:14)
--- NOTE | 2025-05-05 14:30 | NUR ---
DISCHARGE PT VERBALIZED UNDERSTANDING OF ALL DISCHARGE INSTRUCTIONS AND MEDICATIONS. PT SIGNED DISCHARGE PAPERWORK. IV'S DC'D. PT TAKEN OUT TO RIDE HOME VIA WHEEL CHAIR. ALL BELONGINGS SENT HOME WITH PT.
[2025-05-05] MEDS ORDERED: CefTRIAXone Sodium 1,000 MG in NS 100 ML IV SCH (21:00)
[2025-05-06] MEDS ORDERED: Remdesivir (EUA) 100 MG in NS 250 ML IV SCH (12:00)
== END 2025-05-05 14:30 | disposition home or self-care (01) | DRG 871 ==
LOC: ER 20:22 → ICUE 20:23 → ERHOLD 20:23 → EDBEDREQ 23:39 → ICUE 05-05 04:05
PROVIDERS: Emergency Medicine; ADMIT Student in an Organized Health Care Education/Training Program
PROC: 3E03329 Introduction of Other Anti-infective into Peripheral Vein, Percutaneous Approach (ICD-10-PCS; 2025-05-04)
PROC: XW033E5 Introduction of Remdesivir Anti-infective into Peripheral Vein, Percutaneous Approach, New Technology Group 5 (ICD-10-PCS; principal; 2025-05-05)
PROC: 3E0DX3Z Introduction of Anti-inflammatory into Mouth and Pharynx, External Approach (ICD-10-PCS; 2025-05-05)
DX: A41.89 Other specified sepsis (principal); J12.82 Pneumonia due to coronavirus disease 2019; J96.21 Acute and chronic respiratory failure with hypoxia; U07.1 COVID-19; J44.0 Chronic obstructive pulmonary disease with (acute) lower respiratory infection; J44.1 Chronic obstructive pulmonary disease with (acute) exacerbation; I25.10 Atherosclerotic heart disease of native coronary artery without angina pectoris; E78.5 Hyperlipidemia, unspecified; M81.0 Age-related osteoporosis without current pathological fracture; I10 Essential (primary) hypertension; T38.0X5A Adverse effect of glucocorticoids and synthetic analogues, initial encounter; E55.9 Vitamin D deficiency, unspecified; Z85.51 Personal history of malignant neoplasm of bladder; Z99.81 Dependence on supplemental oxygen; Z92.21 Personal history of antineoplastic chemotherapy; Z88.1 Allergy status to other antibiotic agents; Z88.2 Allergy status to sulfonamides; Z88.8 Allergy status to other drugs, medicaments and biological substances; Z79.82 Long term (current) use of aspirin; Z79.83 Long term (current) use of bisphosphonates; Z79.52 Long term (current) use of systemic steroids; Z87.891 Personal history of nicotine dependence; Z79.51 Long term (current) use of inhaled steroids
CPT/HCPCS: 36415; 71046; 80053; 82306; 82803; 83605; 83690; 83735; 83880; 84145; 84484; 85025; 85379; 87040; 87428-QW; 93005; 93010; 94640; 94664; 94762; 96365; 96367; 96375; 99285-25; A9270; G0378; J0248; J0456; J0696; J1100; J1938; J2405; J7030; J7050